=== PATIENT | male | born 1965 | race Caucasian/White ===

== ENCOUNTER 2017-04-04 10:30 | Outpatient (RCR) | payer BC, OTHER, SELFPAY ==
--- NOTE | 2017-01-15 08:02 | HP.PTEVAL ---
Patient's Visit Information NIRAJ JENSEN is a 51 year old M referred to Physical Therapy by AZRA Barron with a diagnosis of Right TKR 01/09/17. Date of Evaluation: 01/15/17 Physical Therapist: Ericka Fang - Visit Plan Frequency: 3x /Week Duration: 4 Weeks Plan: Right TKR 01/09/17- focus on ROM, strength and functional mobility. - Subjective Subjective: Tore his meniscus in May- had a clean out in May- it got better but then dropped off- had PT with Jarad. Dr. Callaway did both surgeries. Right TKR 01/09/17- Had the surgery at [facility] then went home the next day. Lives in a 2 story home but is currently staying on one floor- 3-4 steps to get into the house. No problems getting in out of the house. Son/family can help as needed. Pain level Worst: 01/09. Agg: nothing specific- feels pressure. Constant dull and achy with sometime sharp pains. Around the knee area- no radiating pain. No N/T. Eases: ice, elevation Best: 07/10. Sleep: wakes him up- sleeps on the couch. Patient is an industrial maintaince- concrete, crawling, squatting, stooping, walking, ladders, standing, etc. Wants to get back to normal yard work. PMHx/Meds: no changes since he was in the hospital. - Objective Posture: FH, RS- can correct with verbal cues. Gait: antalgic- uses FWW- step to gait pattern with wide ALYSA and poor heel/toe strike on the right. Stairs:asc/desc 8 non recip with 2 HR. HR/TR: WNL. Balance: WS but unable to SLS. Observation: Juan hose- unable to see incision but no drainage on the JUAN hose-still has surgical dressing over wound. Edema: moderate- hard calf. Palpation: tender along medial and lateral joint line. ROM: 10-70 degrees with pain at end range. Strength: Quad set visible but requires max A for SLR. Ankle: 5/5 - Goals Goal 1:: Patient will be I with HEP and progression Goal Time Frame: 4-6 Weeks Goal 2:: Patient will demo 0-120 degrees of ROM in the right knee Goal Time Frame: 4-6 Weeks Goal 3:: Patient will asc/desc 8 recip with 1 HR to ease ADL's. Goal Time Frame: 4-6 Weeks Goal 4:: Patient will ambulate >300 feet with a normalized gait pattern and LRD Goal Time Frame: 4-6 Weeks Goal 5:: Patient will demo 5/5 strength in LE where deficit to ease ADL's Goal Time Frame: 4-6 Weeks - Rehabilitation Potential Physical Therapy Diagnosis: Patient presents s/p right TKR 01/09/17 with hypomobility- he has decreased ROM, strength, and muscular endurance leading to abnormal gait pattern and inability to perform ADL's. Rehabilitation Potential: Good - Anticipated Interventions Patient/Client Instruction: Educate patient on: Benefits of Fitness Program For the Purpose of:: To improve ability to perform ADL's Therapeutic Exercise to Include: Strength training, Endurance training, Balance training, Body mechanics, Postural training, Flexibilty training, Gait and locomotor training, Passive ROM, Active ROM, Dynamic Lumbar Stabilization For the Purpose of:: To improve muscle performance and motor function Functional Training to Include: Gait training For the Purpose of:: To improve ability to perform ADL's TENS: Yes Cryotherapy (ice pack, ice massage): Yes Thermo therapy (hot pack): Yes Ultrasound (thermal/non thermal): No Vasopneumatic device: Yes For the Purpose of:: To decrease pain, To decrease swelling/inflammation Thank you for the opportunity to evaluate your patient. For Medicare and Medicare HMO plans, please review the plan of care and approve it. It will need to be FAXED BACK to us at [phone] for Medicare purposes. Please let me know if there are questions or concerns regarding this plan of care. Physician Signature: Date:
--- NOTE | 2017-02-14 13:50 | HP.PTREVAL_ITS ---
AZRA Barron, It has been my pleasure to treat NIRAJ JENSEN over the last 12 visits for Right TKR 01/09/17. Please see the progress note below for an update on the physical therapy plan of care! Subjective: Patient reports that the knee is just really tight and swollen. More today than normal due to working it hard in therapy. Pain level is better - almost none at all- more discomfort secondary to the swelling. Feels like a band is around the knee. Sees the MD on sunday. Uses the walker when out of his house but uses a cane at home or out and about short distances. Feels good on the cane. No problems, falling tripping, slipping. Patient is driving. Meds: Oxy (2 every 6 hours) and Tylenol every 8 hours. When he feels it the most is when he goes to bed- hard to get comfortable. Patient feels that he is about 25-30% better. Objective/Function: Posture: FH, RS, Increased kyphosis. Gait: antalgic- can use straight cane without incidence or LOB- decreased stance on the right LE- poor heel/toe pattern. Stairs: asc/desc 8 recip with 2 HR- poor pattern. HR/ TR: able. Balance: 15 sec without LOB. ROM: 10-105 degrees with pain at end range. Strength: Ankle: 5/5, Knee: 4/5, Hip: 4-/5 Plan Plan: Continue 3x a week for 4 weeks Goals Goal 1:: Patient will be I with HEP and progression Goal Time Frame: 4-6 Weeks Goal Progress: Progressing Goal 2:: Patient will demo 0-120 degrees of ROM in the right knee Goal Time Frame: 4-6 Weeks Goal Progress: Progressing Goal 3:: Patient will asc/desc 8 recip with 1 HR to ease ADL's. Goal Time Frame: 4-6 Weeks Goal Progress: Progressing Goal 4:: Patient will ambulate >300 feet with a normalized gait pattern and LRD Goal Time Frame: 4-6 Weeks Goal Progress: Progressing Goal 5:: Patient will demo 5/5 strength in LE where deficit to ease ADL's Goal Time Frame: 4-6 Weeks Goal Progress: Progressing Anticipated Interventions Patient/Client Instruction: Educate patient on: Benefits of Fitness Program For the Purpose of:: To improve ability to perform ADL's Therapeutic Exercise to Include: Strength training, Endurance training, Balance training, Body mechanics, Postural training, Flexibilty training, Gait and locomotor training, Passive ROM, Active ROM, Dynamic Lumbar Stabilization For the Purpose of:: To improve muscle performance and motor function Functional Training to Include: Gait training For the Purpose of:: To improve ability to perform ADL's TENS: Yes Cryotherapy (ice pack, ice massage): Yes Thermo therapy (hot pack): Yes Ultrasound (thermal/non thermal): No Vasopneumatic device: Yes For the Purpose of:: To decrease pain, To decrease swelling/inflammation Please do not hesitate to contact me at [phone] by phone or Fax: if you have questions or concerns regarding this new plan of care! Sincerely, Ericka Fang
--- NOTE | 2017-03-16 10:53 | HP.PTREVAL_ITS ---
AZRA Barron, It has been my pleasure to treat NIRAJ JENSEN over the last 24 visits for Right TKR 01/09/17. Please see the progress note below for an update on the physical therapy plan of care! Subjective: Patient reports his knee is good. 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 Restrictions are cutting hours- start low then go high. Needs to speak to HR about if they will let him come back. Not exactly sure what job he is going back too. Not a lot of pain in the knee its more discomfort. Still feels like there is a band around there. Completely stopped pain meds Sunday. Sleep is still rough- hard to get comfortable. Patient feels that he is 50% better- Objective/Function: Posture: good throughout. Gait: antalgic- decreased stance on the left LE-poor heel strike. Stairs: asc/desc 8' recip- asc with no HR desc with 1 HR. Palpation: not tender. ROM: 5-120 degrees. Strength: 5/5 throughout Plan Plan: Hold-will decide where to go from here once he figures out work situation Goals Goal 1:: Patient will be I with HEP and progression Goal Time Frame: 4-6 Weeks Goal Progress: Goal Met Goal 2:: Patient will demo 0-120 degrees of ROM in the right knee Goal Time Frame: 4-6 Weeks Goal Progress: Progressing Goal 3:: Patient will asc/desc 8 recip with 1 HR to ease ADL's. Goal Time Frame: 4-6 Weeks Goal Progress: Goal Met Goal 4:: Patient will ambulate >300 feet with a normalized gait pattern and LRD Goal Time Frame: 4-6 Weeks Goal Progress: Progressing Goal 5:: Patient will demo 5/5 strength in LE where deficit to ease ADL's Goal Time Frame: 4-6 Weeks Goal Progress: Goal Met Anticipated Interventions Patient/Client Instruction: Educate patient on: Benefits of Fitness Program For the Purpose of:: To improve ability to perform ADL's Therapeutic Exercise to Include: Strength training, Endurance training, Balance training, Body mechanics, Postural training, Flexibilty training, Gait and locomotor training, Passive ROM, Active ROM, Dynamic Lumbar Stabilization For the Purpose of:: To improve muscle performance and motor function Functional Training to Include: Gait training For the Purpose of:: To improve ability to perform ADL's TENS: Yes Cryotherapy (ice pack, ice massage): Yes Thermo therapy (hot pack): Yes Ultrasound (thermal/non thermal): No Vasopneumatic device: Yes For the Purpose of:: To decrease pain, To decrease swelling/inflammation Please do not hesitate to contact me at [phone] by phone or Fax: if you have questions or concerns regarding this new plan of care! Sincerely, Ericka Fang
--- NOTE | 2017-07-04 13:05 | HP.PT.NRP ---
HP - Discharge Summary (1) - Patient Information NIRAJ JENSEN was seen in my office for initial evaluation on 01/15/17. The following Plan of Care was established for this patient: Initial Frequency: 3x /Week Initial Duration: 4 Weeks - Anticipated Interventions Patient/Client Instruction: Educate patient on: Benefits of Fitness Program For the Purpose of:: To improve ability to perform ADL's Therapeutic Exercise to Include: Strength training, Endurance training, Balance training, Body mechanics, Postural training, Flexibilty training, Gait and locomotor training, Passive ROM, Active ROM, Dynamic Lumbar Stabilization For the Purpose of:: To improve muscle performance and motor function Functional Training to Include: Gait training For the Purpose of:: To improve ability to perform ADL's TENS: Yes Cryotherapy (ice pack, ice massage): Yes Thermo therapy (hot pack): Yes Ultrasound (thermal/non thermal): No Vasopneumatic device: Yes For the Purpose of:: To decrease pain, To decrease swelling/inflammation This patient was last seen in our office . Pertinent comments regarding their Physical therapy will appear below: Patient has returned to work- d/c at this time At this point I will be discontinuing this patient from physical therapy. I would be happy to see this patient again in the future if found appropriate by the physician. Thank you! Ericka Fang
== END 2017-04-04 19:00 | disposition home or self-care (01) ==
LOC: PT 10:30
PROVIDERS: Visit Provider Physician Assistant Surgical
DX: M17.11 Unilateral primary osteoarthritis, right knee (principal); M25.461 Effusion, right knee; S83.241D Other tear of medial meniscus, current injury, right knee, subsequent encounter
CPT/HCPCS: 97016; 97110; 97161; 97530

== ENCOUNTER → 2018-01-17 17:19 | Outpatient (CLI) | payer BC, SELFPAY ==
[2018-01-17 19:15] LABS: RBC /Synovial Fluid 0.049 10^6/uL (0); Synovial Fld Mononuclear WBC % 1.8 %; Synovial Fld Polynuclear WBC % 98.2 %
[2018-01-17 20:03] LABS: AUTO B FLUID DILUENT BKGD CT WBC <0.1 RBC <0.01 (W<.1,R<.01)
[2018-01-17 20:05] LABS: Appearance /Synovial Fluid Turbid (CLEAR); Color / Synovial Fluid AMBER (Pale Yellow); Source / Synovial Fluid R KNEE
[2018-01-17 20:07] LABS: Body Fluid QC Type(s) BF4; Neutrophil 95 % (0-25); Other Cell /Synovial Fluid 3 %
[2018-01-21 11:47] LABS: Pathologist Comment Reviewed
== END ==
PROVIDERS: Referring Provider Specialist; Visit Provider Specialist
DX: M25.461 Effusion, right knee (principal); Z96.651 Presence of right artificial knee joint
CPT/HCPCS: 87015; 87070; 87075; 87101; 87116; 87186; 87205; 87206; 89050; 89051

== ENCOUNTER 2018-01-29 11:43 | Inpatient (IN) | payer BC, SELFPAY ==
[2018-01-25 13:31] VITALS: BP 139/76; PULSE 67; RESP 16; TEMP 36.9; O2SAT 97; BMI 37.7
--- NOTE | 2018-01-25 13:43 | SDCEKG_ITS ---
Test Reason : Blood Pressure : / mmHG Vent. Rate : 062 BPM Atrial Rate : 062 BPM P-R Int : 146 ms QRS Dur : 094 ms QT Int : 384 ms P-R-T Axes : 039 041 032 degrees QTc Int : 389 ms Normal sinus rhythm Normal ECG Confirmed by NIKOLAY SCHILLING ([id number]), market editor WANG CULVER ([id number]) on 01/29/2018 9:10:08 AM Referred By: Tito Callaway Confirmed By:NIKOLAY SCHILLING
[2018-01-25 14:26] LABS: Hematocrit 39.5 % (40-54); Hemoglobin 12.9 g/dl (13.0-16.5); Mean Corp Hgb Conc 32.7 g/gl (32-36); Mean Corpuscular Hgb 28.1 pg (27.0-32.0); Mean Corpuscular Volume 86.1 fL (80-94); Mean Platelet Vol. 9.4 fl (6.2-12.0); Platelet Count 312 K/mm3 (150-450); RBC Distribution Width CV 13.3 % (11.6-14.6); RBC Distribution Width SD 41.4 fl (35.1-43.9); Red Blood Count 4.59 M/mm3 (4.6-6.2); White Blood Count 9.3 K/mm3 (4.4-11.0)
[2018-01-25 14:29] LABS: Scan Indicated on CBC? Y/N NO
--- NOTE | 2018-01-28 07:17 | PCM.HP.BLA ---
History and Physical DATE OF SURGERY: 01/29/2018 SCHEDULED PROCEDURE: Right knee explant total knee, placement of antibiotic spacer HISTORY OF PRESENT ILLNESS: This is a 52-year-old male who underwent a previous right total knee arthroplasty on January 09, 2017. Patient continued to have swelling and tightness in the right knee. Patient denied any fevers, chills, or recent infections. Patient just feels as if the knee feels swollen and tight. There is no history of infections after surgery. 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 He denies any new trauma or injury. Patient had lab work obtained in which showed an elevated CRP at 6.71 and ESR at 57. Patient also had aspiration which did show positive for synovasure with greater than 70,000 white blood cells, 90% neutrophils. Cultures are positive for staph strain. After discussion with Dr. Tito Callaway, the patient will undergo an explant right total knee with placement of antibiotic spacer. Patient has been on Doxycycline. Patient currently denies any chest pain, shortness breath, fevers chills. Patient has a medical history pertinent for hypertension. REVIEW OF SYSTEMS: ROS: Const: Denies anorexia, change in appetite, fever, hard of hearing, vision problems and weight change. CV: Denies chest pain, heart murmur, irregular heartbeat and peripheral vascular disease. Resp: Denies asthma, cough, pneumonia, sleep apnea, SOB, tuberculosis and wheezing. GI: Denies constipation, diarrhea, difficulty swallowing, heartburn, nausea, bloody stools and vomiting. : Urinary: denies incontinence. Musculo: Denies leg swelling, limp, trouble walking and weakness. Skin: Reports tattoo, but denies Raynaud's and history of shingles. Neuro: Denies ambulatory dysfunction, dizziness, numbness/tingling and tremor. Psych: Denies anxiety, depression, insomnia, mental illness and stress. Kal/Lymph: Denies anemia, bleeding/bruising tendency and past transfusion. Reviewed, no changes. PAST MEDICAL HISTORY: Advance Care Plan: No Advance Directives Effective Date: 10/26/2016 PMH: Medical Problems: High Blood Pressure Accidents: None Surgical Hx: Carpal Tunnel Release Rt - (2001) [facility] Vasectomy - (1996) [facility], [place] Knee Arthroscopy RT - (06/09/2016) [email or web address] Knee Replacement RT - (01/09/2017) [email or web address] Anesthesia Complications: None Assistive Devices: None Reviewed, no changes. SOCIAL HISTORY: SH: Marital: .Occupation: [employer].Work Status: Currently Working.Hand Dominance: Right-handed. Personal Habits: Cigarette Use: Former - 1 1/2 ON & OFF TRYING TO STOP.Alcohol: Currently consumes alcohol, Occasionally.Drug Use: Denies Use.Enjoy Exercising: Exercises 1-3 x/month. Reviewed, no changes. VITALS: Ht: 66 Wt: 233lb Wt k.689 BMI: 37.6 BP: 130/80 Pulse: 80 Resp: 16 T: 97.3 T: 36.3C ALLERGIES: No Known Drug Allergy MEDICATIONS: Doxycycline Monohydrate 100 mg 1 by mouth twice a day, Meloxicam 7.5 mg take 1 tablet by mouth twice A day, Lisinopril 10 mg take 1 tablet by mouth every day PRE-OP EXAM: General appearance:NORMAL Other: Eyes: Conjunctivae and lids: NORMAL Pupils: ERR Ears, Nose, Mouth, and Throat: NORMAL Other: Inspection of lips, teeth and gums: NORMAL Other: Neck: Examination of neck: no masses noted. Respiratory: Assessment of respiratory effort: NORMAL Other: Auscultation of lungs: clear to auscultation no wheezes, rhonchi or rales. Cardiovascular: Auscultation of heart: regular rate and rhythm, no murmurs, gallops or rubs. Exam of carotid arteries: NORMAL Other: Gastrointestinal: Exam of abdomen: soft, nontender, nondistended bowel sounds present. PHYSICAL EXAMINATION: Right knee: Incision is well healed. There is 1 mm laxity medially and laterally. Stable to varus and valgus stress test. There is moderate effusion. Range of motion right knee lacks 5 of full extension to 110 of flexion. Sensation intact to light touch. Neurovascularly intact. IMAGING STUDIES: Labwork: January 09, 2018 CRP 6.71 and ESR 57 Patient with positive Synovasure with greater than 70,000 white blood cells and the synovial fluid and greater than 90% neutrophils. Cultures are positive for staph strain. IMPRESSION: 1. Infected right total knee arthroplasty 2. Hypertension PLAN: Dr. Tito Callaway did discuss and review with the patient all treatment options including surgical versus nonsurgical options. Patient does wish to proceed with the above-stated procedure. Potential risks, benefits, and complications of the procedure were discussed in detail including but not limited to , infection, nerve and blood vessel damage, persistent pain, numbness, tingling, paresthesias, blood clot, pulmonary embolism, and requirement for possible further surgery. The patient expressed full understanding and has no further questions for the doctor. Patient does agree to proceed with the above-stated procedure and has signed the surgery consent form. This dictation was created using voice recognition software. Phonetic and/or grammatical errors may exist.. ___ I have re-examined the patient. There are no clinical changes since date of exam. ___ See progress notes for changes. ___ Dictated on admission Date: Time: Signature:
[2018-01-29] VITALS (12 sets, daily range): BP systolic 103–145; BP diastolic 68–82; PULSE 62–74; RESP 14–18; TEMP 36.1–37.1; O2SAT 98–100; BMI 37.7; BMI 37.5
[2018-01-29] MEDS: oxyCODONE HCl Cr 10 MG Tablet PO (12:05)
[2018-01-29] MEDS: Acetaminophen 500 MG Tablet 1000 MG PO ×2 (12:06→22:33)
[2018-01-29] MEDS: Lactated Ringers 1,000 ML 999 ML IV (12:30)
[2018-01-29] MEDS: Vancomycin IV 1,000 MG/20 ML Vial 6000 MG OPERA.SITE (13:00)
[2018-01-29] MEDS: Cefazolin 2 GM in 0.9% Normal Saline 100 ML IV (14:43)
--- NOTE | 2018-01-29 15:53 | PCM.OPRPT ---
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 Insertion of nonbiodegradable antibiotic delivery system Description of Surgical Findings:: Well aligned antibiotic spacer. Aggressive debridement of the knee. Patient had florid synovitis consistent with chronic infection. Also significant osteomyelitis was encountered requiring significant bony debridement.. leasing specialist: Paul Harris Type of Anesthesia:: Spinal Anesthesiologist: Jose Sands Special Medications: 2 g Ancef after cultures were obtained, 1 g TXA at incision, 1 g TXA closure Specimen's removed: 3 separate specimens were sent to microbiology Drains: Lateral Hemovac drain Estimated Blood Loss (mL): 150 Fluids Replaced: 1600 mL crystalloid Description of Procedure: 52 yo m history of right TKA in 2017 presents with chronic swelling. Patient was worked up for infection noted to have staph on aspiration meeting 5 out of 5 nonoperative MSIS criteria for infection. Reviewed options were discussed the patient. Based on acuity of the symptoms and organism irrigation debridement with polyethylene exchange is recommended. Risks and benefits of the procedure were discussed with the patient including but not limited to blood loss, DVTs, PEs, neurovascular damage, infection, general risk of anesthesia including loss of life. Demonstrated understanding and was able to sign informed consent. On the date of procedure patient'sR lower extremity was marked in the preoperative area. The patient was then taken back to the operating room where the patient was placed on the table in the supine position. All bony prominences were identified a well-padded. Anesthesia assumed control of the C-spine and airway and remained controlled throughout the remainder of the procedure. A tourniquet was placed on the operative thigh and the leg was prepped in a sterile fashion. The surgeon then scrubbed at this time .Upon reentering the room left lower extremity was draped in a standard orthopedic fashion. A timeout was then called and everyone agreed upon the side, the site, the procedure to be performed, patient's identity and antibiotics given. A midline skin incision was made and sharp dissection was taken down through skin subcutaneous tissue and fat. Appropriate flaps were elevated medially and laterally. His arthrotomy was identified and the standard medial parapatellar incision was made and the patella was subluxed laterally. The standard deep MCL release was done. At this point an aggressive synovectomy commenced. Our attention was first turned towards the subpatellar pouch and all suspicious synovium and tissues were debrided. We then directed our attention towards medial lateral gutters were these tissues were aggressively debrided. Knee was then flexed up the polyethylene was removed. Once polyethylene was removed we did the remainder of the synovium in the medial and lateral gutters and along the lateral structures and MCL. At this time the knee was flexed up in our attention was directed towards removing the implants. Osteotomes and TPS saw were used to sequentially break up the bone cement interface we did note there was significant soft bone consistent with osteomyelitis. Once the femoral bone cement interface was broken up a bone tamp was used to remove the femur from the distal femur. Attention was then directed towards the tibia. TPS saw and white osteotomes were used to sequentially break up the bone cement interface. Once this was broken up the tibia could be removed. There was a large central defect. Once this was completed our attention was directed at aggressively debriding the bone. We did send membrane cultures. After we aggressively debrided the nonviable bone back to what appeared to be healthy bone in all cement we then reamed the canals of both the femur and the tibia. This was completed the knee was placed in extension patella was everted and a TPS saw was used to break up the bone cement interface once this was completed the patella was easily removed. A bur was used to remove the pegs and there is cement mantle. Once this was completed tourniquet was let down and hemostasis was obtained using the [employer] Michael hemostasis device. Once this was completed 6 L of normal saline were irrigated throughout the wound stopping intermittently to debride any further nonviable or infectious debris. Should also be noted that prior to irrigation and hemostasis we did place a lamina mechanical spreader operator in the joint and aggressively debride the knee in both extension and flexion posteriorly. Once the knee was adequately debrided we directed our attention in performing the spacer. On the back table one batch of cement was mixed with one third of the antibiotics. (Antibiotics and cement were 6 g vancomycin, 2 g Ancef and 4.8 g tobramycin) this initial batch of cement and antibiotics were rolled into dowels and placed on the back table. Once the wound was appropriately irrigated the dowels were placed on the femoral tibial canal for an appropriate fit. This was our nonbiodegradable antibiotic delivery system. Size 5 femur was selected as this was what was removed from the knee. We then trialed polyethylene components. An 8, 19 mm CR polyethylene gave us a good fit over the proximal tibia and allow the knee to adequately flex and extend with adequate tension on the soft tissues. Once we selected our final components they were placed on the back table. The final polyethylene was scored on the backside in order to allow for good cement interdigitation. The next back of cement was mixed with the remainder of the antibiotics. The bone ends were cleaned and the tourniquet remained down. The femur was cemented into place and the tibial polyethylene was cemented into place. Knee was placed in extension while cement was cured. Once the cement cured there were some leftover antibiotics which were placed in the wound as powder. A drain was placed out the lateral portion of the knee superior laterally. The arthrotomy was closed using #1 Vicryl. Skin was closed using 2-0 Vicryl and final skin closure was done with nylon sutures. A sterile compressive dressing was then placed. Knee immobilizer was placed. The patient was then awakened from anesthesia, transferred to the [facility] and transferred to the PACU for recovery. Post op plan Patient will remain in the knee immobilizer for 2 weeks. He will be touchdown weightbearing for 2 weeks followed by 25% weightbearing for the remainder of the time that the pacer is in place. A 2 weeks he has no limitations on range of motion and can begin physical therapy for range of motion. Patient will will be placed on IV antibiotics infectious disease has been consulted. We will plan for the second stage of the revision once adequate IV antibiotic treatment has commenced and patient has successfully passed an antibiotic holiday. My physician design assistant was a vital part of this case. He was important in appropriate retraction during the case, and protection of soft tissues during bony cuts. His intimate knowledge of the case and my steps aided in safe and expedient completion of the procedure as well as appropriate position of the leg during the case. He was also vital in assisting with closure under my direct supervision. Grafts/Implants Used: [employer] triathlon CR size 5 femur, 8 x 19 mm CR poly - Complications None - Admit VTE Documentation VTE Present on Admission: No VTE Mechan Device Prophylaxis: SCD's, Thigh High JUAN Hose VTE Pharm Prophylaxis ordered?: Yes
--- NOTE | 2018-01-29 16:05 | OP.PCM_ITS ---
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 Insertion of nonbiodegradable antibiotic delivery system Description of Surgical Findings:: Well aligned antibiotic spacer. Aggressive debridement of the knee. Patient had florid synovitis consistent with chronic infection. Also significant osteomyelitis was encountered requiring significant bony debridement.. controller operations and hr manager: Paul Harris Type of Anesthesia:: Spinal Anesthesiologist: Jose Sands Special Medications: 2 g Ancef after cultures were obtained, 1 g TXA at in cision, 1 g TXA closure Specimen's removed: 3 separate specimens were sent to microbiology Drains: Lateral Hemovac drain Estimated Blood Loss (mL): 150 Fluids Replaced: 1600 mL crystalloid Description of Procedure: 52 yo m history of right TKA in 2017 presents with chronic swelling. Patient was worked up for infection noted to have staph on aspiration meeting 5 out of 5 nonoperative MSIS criteria for infection. Reviewed options were discussed the patient. Based on acuity of the symptoms and organism irrigation debridement with polyethylene exchange is recommended. Risks and benefits of the procedure were discussed with the patient including but not limited to blood loss, DVTs, PEs, neurovascular damage, infection, general risk of anesthesia including loss of life. Demonstrated understanding and was able to sign informed consent. On the date of procedure patient'sR lower extremity was marked in the preoperative area. The patient was then taken back to the operating room where the patient was placed on the table in the supine position. All bony prominences were identified a well-padded. Anesthesia assumed control of the C-spine and airway and remained controlled throughout the remainder of the procedure. A tourniquet was placed on the operative thigh and the leg was prepped in a sterile fashion. The surgeon then scrubbed at this time .Upon reentering the room left lower extremity was draped in a standard orthopedic fashion. A timeout was then called and everyone agreed upon the side, the site, the procedure to be performed, patient's identity and antibiotics given. A midline skin incision was made and sharp dissection was taken down through skin subcutaneous tissue and fat. Appropriate flaps were elevated medially and laterally. His arthrotomy was identified and the standard medial parapatellar incision was made and the patella was subluxed laterally. The standard deep MCL release was done. At this point an aggressive synovectomy commenced. Our attention was first turned towards the subpatellar pouch and all suspicious synovium and tissues were debrided. We then directed our attention towards medial lateral gutters were these tissues were aggressively debrided. Knee was then flexed up the polyethylene was removed. Once polyethylene was removed we did the remainder of the synovium in the medial and lateral gutters and along the lateral structures and MCL. At this time the knee was flexed up in our attention was directed towards removing the implants. Osteotomes and TPS saw were used to sequentially break up the bone cement interface we did note there was significant soft bone consistent with osteomyelitis. Once the femoral bone cement interface was broken up a bone tamp was used to remove the femur from the distal femur. Attention was then directed towards the tibia. TPS saw and white osteotomes were used to sequentially break up the bone cement interface. Once this was broken up the tibia could be removed. There was a large central defect. Once this was completed our attention was directed at aggressively debriding the bone. We did send membrane cultures. After we aggressively debrided the nonviable bone back to what appeared to be healthy bone in all cement we then reamed the canals of both the femur and the tibia. This was completed the knee was placed in extension patella was everted and a TPS saw was used to break up the bone cement interface once this was completed the patella was easily removed. A bur was used to remove the pegs and there is cement mantle. Once this was completed tourniquet was let down and hemostasis was obtained using the [employer] Michael hemostasis device. Once this was completed 6 L of normal saline were irrigated throughout the wound stopping intermittently to debride any further nonviable or infectious debris. Should also be noted that prior to irrigation and hemostasis we did place a lamina substation mechanic in the joint and aggressively debride the knee in both extension and flexion posteriorly. Once the knee was adequately debrided we directed our attention in performing the spacer. On the back table one batch of cement was mixed with one third of the antibiotics. (Antibiotics and cement were 6 g vancomycin, 2 g Ancef and 4.8 g tobramycin) this initial batch of cement and antibiotics were rolled into dowels and placed on the back table. Once the wound was appropriately irrigated the dowels were placed on the femoral tibial canal for an appropriate fit. This was our nonbiodegradable antibiotic delivery system. Size 5 femur was selected as this was what was removed from the knee. We then trialed polyethylene components. An 8, 19 mm CR polyethylene gave us a good fit over the proximal tibia and allow the knee to adequately flex and extend with adequate tension on the soft tissues. Once we selected our final components they were placed on the back table. The final polyethylene was scored on the backside in order to allow for good cement interdigitation. The next back of cement was mixed with the remainder of the antibiotics. The bone ends were cleaned and the tourniquet remained down. The femur was cemented into place and the tibial polyethylene was cemented into place. Knee was placed in extension while cement was cured. Once the cement cured there were some leftover antibiotics which were placed in the wound as powder. A drain was placed out the lateral portion of the knee superior laterally. The arthrotomy was closed using #1 Vicryl. Skin was closed using 2-0 Vicryl and final skin closure was done with nylon sutures. A sterile compressive dressing was then placed. Knee immobilizer was placed. The patient was then awakened from anesthesia, transferred to the [facility] and transferred to the PACU for recovery. Post op plan Patient will remain in the knee immobilizer for 2 weeks. He will be touchdown weightbearing for 2 weeks followed by 25% weightbearing for the remainder of the time that the pacer is in place. A 2 weeks he has no limitations on range of motion and can begin physical therapy for range of motion. Patient will will be placed on IV antibiotics infectious disease has been consulted. We will plan for the second stage of the revision once adequate IV antibiotic treatment has commenced and patient has successfully passed an antibiotic holiday. My physician hardware sales assistant was a vital part of this case. He was important in appropriate retraction during the case, and protection of soft tissues during bony cuts. His intimate knowledge of the case and my steps aided in safe and expedient completion of the procedure as well as appropriate position of the leg during the case. He was also vital in assisting with closure under my direct supervision. Grafts/Implants Used: Mary triathlon CR size 5 femur, 8 x 19 mm CR poly - Complications None - Admit VTE Documentation VTE Present on Admission: No VTE Mechan Device Prophylaxis: SCD's, Thigh High JUAN Hose VTE Pharm Prophylaxis ordered?: Yes
[2018-01-29] MEDS: Scopolamine 1mg/72hr Patch 1 PATCH TD (16:48)
--- NOTE | 2018-01-29 17:20 | RAD_ITS ---
STUDY: X-RAY - RIGHT KNEE REASON FOR EXAM: Male, 52 years old. Postop TECHNIQUE: 2 view(s) of the knee. COMPARISON: January 09, 2017 FINDINGS: Status post revision of right knee prosthesis since the previous study. Postsurgical changes within surrounding soft tissue. There is a drain noted. RAD/Knee 1 or 2 Views IMPRESSION: Status post revision of prosthesis of the knee. Electronically Signed: Dave Ngo DO at 21:32 EDT Tel [phone], Service support ,
[2018-01-29] MEDS: Lactated Ringers 1,000 ML 125 ML IV (17:35)
[2018-01-29] MEDS: Morphine 4 MG/ML Syringe IV (19:23)
[2018-01-29] MEDS: 0.9% NaCl Peripheral Flush Adult/Peds IV (19:24)
[2018-01-29] MEDS: Cefazolin 1 GM/50 ML BAG IV (22:32)
[2018-01-29] MEDS: Senna/Docusate Sodium 1 Tablet 2 TABLET PO (22:33)
[2018-01-29] MEDS: Doxycycline 100 MG CAPSULE PO (22:33)
[2018-01-30] MEDS: oxyCODONE 5 MG Tablet PO ×4 (02:21→20:31)
[2018-01-30 02:22] VITALS: BP 119/60; PULSE 73; RESP 14; TEMP 36.7; O2SAT 100
[2018-01-30] MEDS: Rivaroxaban 10 MG Tablet PO (05:30)
[2018-01-30] MEDS: Acetaminophen 500 MG Tablet 1000 MG PO ×3 (05:31→21:59)
[2018-01-30] MEDS: Cefazolin 1 GM/50 ML BAG IV (05:31)
--- NOTE | 2018-01-30 06:13 | PN.ORTHO_ITS ---
Subjective: Patient is doing well. Did require pain medications overnight oxycodone and morphine. He does state the knee feels tight. Drain was emptied twice was over 100 mL of output overnight. No chest pain or shortness of breath. No fevers overnight. Infectious disease was consulted awaiting input. Objective: Postoperative x-rays AP and lateral show a well aligned antibiotic knee spacer with intramedullary dowels. - Physical Exam General: Alert, Oriented x3, Cooperative Extremities: - - Right lower extremity: Incision clean dry and intact. Motor is intact dorsiflexion, EHL and plantar flexion. Sensation is intact to light touch saphenous, ty,l superficial peroneal, deep peroneal and tibial distributions. Calves are soft and supple. Vital Signs Temp Pulse Resp BP Pulse Ox 98.1 F 73 14 119/60 100 01/30/18 02:22 01/30/18 02:22 01/30/18 02:22 01/30/18 02:22 01/30/18 02:22 Oxygen Delivery Method Room Air Weight: 233 lb 11.04 oz Body Mass Index (BMI) 37.5 Intake and Output for Last 24 Hours 01/28/18 01/29/18 01/30/18 23:59 23:59 23:59 Intake Total 1999 1901 / 1901 Output Total 100 / 100 550 / 550 Balance 190 / 1899 1351 / 1351 Laboratory Tests Past 24 Hrs 01/30/18 01/30/18 05:45 05:45 WBC Pending RBC Pending Hgb Pending Hct Pending MCV Pending MCH Pending MCHC Pending RDW Pending RDW Differential Pending Plt Count Pending Sodium Pending Potassium Pending Chloride Pending Carbon Dioxide Pending Anion Gap Pending BUN Pending Creatinine Pending Est GFR (MDRD) Af Amer Pending Est GFR (MDRD) Non-Af Pending BUN/Creatinine Ratio Pending Glucose Pending Calcium Pending Medical Necessity - Tobacco Use Smoking Status: Former smoker Assessment/Plan Postop day 1 explant right total knee with placement of antibiotic spacer and nonbiodegradable antibiotic delivery system. 1. DVT prophylaxis: Xarelto 2. Drain: We will continue to monitor drain output and remove his drain output decreases 3. Cultures: Awaiting Gram stain and cultures from yesterday's intraoperative specimens, preoperative aspiration revealed staph species 4. Infection: Antibiotics to be managed by infectious disease intra-articular vancomycin and tobramycin has been placed with the antibiotic spacer. 5. Pain control: Continue current regimen Tylenol, oxycodone and morphine as needed 6. Physical therapy: Touchdown weightbearing right lower extremity, knee immobilizer with knee in extension. 7. Disposition: Patient will be ready for discharge once antibiotic regimen is finalized and PICC line is placed. [facility] Office:
[2018-01-30 06:16] LABS: Hematocrit 29.6 % (40-54); Hemoglobin 9.7 g/dl (13.0-16.5); Mean Corp Hgb Conc 32.8 g/gl (32-36); Mean Corpuscular Hgb 28.1 pg (27.0-32.0); Mean Corpuscular Volume 85.8 fL (80-94); Mean Platelet Vol. 9.6 fl (6.2-12.0); Platelet Count 285 K/mm3 (150-450); RBC Distribution Width SD 39.3 fl (35.1-43.9); Red Blood Count 3.45 M/mm3 (4.6-6.2); White Blood Count 11.1 K/mm3 (4.4-11.0)
[2018-01-30 06:18] LABS: Scan Indicated on CBC? Y/N NO
[2018-01-30 06:37] LABS: Anion Gap 7 (5-15); BUN 10 mg/dL (7-18); BUN/Creat Ratio 15.4 RATIO (10-20); Calcium,Total 8.2 mg/dL (8.5-10.1); Chloride 100 mmol/L (98-107); Creatinine, Serum 0.65 mg/dL (0.70-1.30); EST Glomerular Filtration Rate 136 mL/min (>60); Est Glom Filt Rate - Afr Amer 165 mL/min (>60); Glucose 106 mg/dL (74-106); Sodium Level 136 mmol/L (136-145)
[2018-01-30 08:05] VITALS: BP 126/64; PULSE 66; RESP 18; TEMP 36.4; O2SAT 100
[2018-01-30] MEDS: Famotidine 20 MG Tablet PO (10:13)
[2018-01-30] MEDS: Senna/Docusate Sodium 1 Tablet 2 TABLET PO ×2 (10:13→21:59)
[2018-01-30] MEDS: Doxycycline 100 MG CAPSULE PO (10:13)
[2018-01-30] MEDS: Lisinopril 10 MG Tablet PO (10:13)
--- NOTE | 2018-01-30 13:20 | CASEMGMT ---
RN CM Face to Face with patient for initial transition planning/care coordination assessment. RN CM introduced self and role at [facility]. Patient lying in bed, alert and oriented. Patient willing to participate in assessment and is able to answer all questions appropriately. Care providers, pharmacy, and demographics verified. Patient wishes to discharge home, denies need for home health at this time. Patient states he has no further needs or concerns at this time. CM to follow for discharge planning needs that may arise. PCP: Keke Specialists: None Preferred Pharmacy: [facility] Insurance: [employer] Prescription Benefit: [employer] Living Will/HPOA: None, declined additional information LNOK: Son Living Arrangements: Patient lives with son in 2 story house with bath on first floor, can arrange for bed. Transportation: Family DME/HHC: Patient has cane, walker, and hip kit at home. Patient will need HHC at discharge and is agreeable to [facility]. May need IV ATBs and is agreeable to [facility] Disposition Plan: Patient to discharge home or to [facility] with HHC and IV ATBs, family support, and follow-up plans in place. Viky DE LOS SANTOSN, RN, CM
--- NOTE | 2018-01-30 14:16 | CASEMGMT ---
RN CM NOTE: Call placed to LISSET Greene, @ [facility] w/referral for chcf/IV Antibiotics and PT eval and treat. Referral packet also faxed to [facility]. Awaiting financials. Kina CLAY RN CM .
[2018-01-30 14:25] VITALS: BP 122/70; PULSE 67; RESP 16; TEMP 36.5; O2SAT 100
--- NOTE | 2018-01-30 16:25 | PCM.HP.ID ---
Problem List (1) Infected prosthetic knee joint Status: Acute Reason for Consult: PJI Consulted by: Dr. Callaway History of Present Illness: The patient is a 52 year old M who had R TKA about a year ago. Did ok since surgery, but had persistent swelling. Denies redness, pain, drainage, fever, chills, night sweats. Seen in follow-up, labwork done, then knee aspirated 01/17 showed heavy purulence and staph lugdunensis. Started on po doxy for several days then taken to OR 01/[address] Callaway for spacer placement. Full ROS performed and neg except as noted above. - Medical History Allergies/Adverse Reactions: Allergies No Known Allergies Allergy (Verified 01/25/18 13:13) Home Medications: Ambulatory Orders Medication Instructions Recorded Lisinopril [Prinivil] 10 mg PO DAILY 12/25/16 Doxycycline 100 mg PO BID 01/25/18 Meloxicam [Mobic] 7.5 mg PO BID 01/25/18 - Social History SMOKING STATUS:: Former smoker Vital Signs Temp Pulse Resp BP Pulse Ox 97.7 F L 67 16 122/70 H 100 01/30/18 14:25 01/30/18 14:25 01/30/18 14:25 01/30/18 14:25 01/30/18 14:25 Oxygen Delivery Method Room Air Weight: 106 kg Body Mass Index (BMI) 37.5 Microbiology Past 72 Hours 01/29/18 14:09 Gram Stain - Final Aspirate - Other Wound Culture - Preliminary No growth-Final to follow 01/29/18 14:09 Gram Stain - Final Tissue - Other Wound Culture - Preliminary Gram positive organism 01/29/18 14:09 Gram Stain - Final Tissue - Other Wound Culture - Preliminary Gram positive organism 01/29/18 14:09 Gram Stain - Final Tissue - Other Wound Culture - Preliminary No growth-Final to follow Laboratory Tests Past 24 Hrs 01/30/18 01/30/18 05:45 05:45 WBC 11.1 H RBC 3.45 L Hgb 9.7 L Hct 29.6 L MCV 85.8 MCH 28.1 MCHC 32.8 RDW 13.0 RDW Differential 39.3 Plt Count 285 MPV 9.6 Sodium 136 Potassium 4.0 Chloride 100 Carbon Dioxide 29.0 Anion Gap 7 BUN 10 Creatinine 0.65 L Estim Creat Clear Calc 118.60 Est GFR (MDRD) Af Amer 165 Est GFR (MDRD) Non-Af 136 BUN/Creatinine Ratio 15.4 Glucose 106 Calcium 8.2 L - Other Studies Radiology: [] Other Studies: [] reviewed radiology report Route of nutrition/ use of supplements: [] Nutritional Intake: [] IV Site: [] Zuniga Catheter: [] - Physical Exam General: Alert, Oriented x3, Cooperative, No apparent distress HEENT: Atraumatic, PERRLA, EOMI Neck: Supple, No Nodes Lungs: Clear to auscultation, Normal air movement Cardiovascular: Regular rate, Regular Rhythm Abdomen: Soft, Non Tender, Non-Distended Extremities: - - RLE wrapped Skin: No rashes IV Site: Peripheral, without redness Musculoskeletal: No Tenderness to Palpation of Joints or Extremities Neurological: Cranial nerves II-XII grossly intact - Assessment/Plan Antibiotics: [] Assessment/Plan: [] 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 Callaway. Surg cx with [facility]. Will stop doxy as the staph was R to tetracycline. Start IV vanc. Plan will be for picc placement then 6 weeks iv vanc, stop date 03/12/18. Weekly bmp, cbc, vanc trough, and esr while on iv abx. Will follow, thank you.
[2018-01-30] MEDS: 0.9% NaCl Peripheral Flush Adult/Peds IV ×2 (16:26→20:36)
--- NOTE | 2018-01-30 16:55 | PCM.RX.CS ---
Consult Pharmacy has been consulted to manage selected antiobiotic: Vancomycin Type of Consult: New start Suspected Infection: Skin/Soft tissue Prior Doses of Antibiotics Received/Current Regimen: Received 2000mg iv x1 on 01.30.18 @1600. Labs: Sodium 136 mmol/L (136-145) 01/30/18 05:45 Potassium 4.0 mmol/L (3.5-5.1) 01/30/18 05:45 Chloride 100 mmol/L (98-107) 01/30/18 05:45 Carbon Dioxide 29.0 mmol/L (21.0-32.0) 01/30/18 05:45 Anion Gap 7 (5-15) 01/30/18 05:45 BUN 10 mg/dL (7-18) 01/30/18 05:45 Creatinine 0.65 mg/dL (0.70-1.30) L 01/30/18 05:45 Est GFR (MDRD) Af Amer 165 mL/min (>60) 01/30/18 05:45 Est GFR (MDRD) Non-Af 136 mL/min (>60) 01/30/18 05:45 BUN/Creatinine Ratio 15.4 RATIO (10-20) 01/30/18 05:45 Glucose 106 mg/dL (74-106) 01/30/18 05:45 Microbiology: Microbiology 01/29/18 14:09 Aspirate - Other Gram Stain - Final 01/29/18 14:09 Aspirate - Other Wound Culture - Preliminary No growth-Final to follow 01/29/18 14:09 Tissue - Other Gram Stain - Final 01/29/18 14:09 Tissue - Other Wound Culture - Preliminary Gram positive organism 01/29/18 14:09 Tissue - Other Gram Stain - Final 01/29/18 14:09 Tissue - Other Wound Culture - Preliminary Gram positive organism 01/29/18 14:09 Tissue - Other Gram Stain - Final 01/29/18 14:09 Tissue - Other Wound Culture - Preliminary No growth-Final to follow 01/25/18 13:50 Swab (Method) Nasal Screen MRSA/MSSA - Final Weight used for dosin kg Estimated Creatinine Clearance: 119 ml/min Goal Trough: 15-20 mcg/mL Pharmacy Plan for Drug Dosing: Reviewed weight and renal status. Will begin 1250mg iv q8h and get trough level before 4th dose (goal 15-20 mcg/ml). Pharmacy Service will continue to monitor and adjust dosing as required. Follow-Up Labs: Trough Vancomycin - on 01.31.18 @1530 before dose at 1600
[2018-01-30 20:25] VITALS: BP 136/62; PULSE 75; RESP 18; TEMP 37.3; O2SAT 95
[2018-01-31] MEDS: 0.9% NaCl Peripheral Flush Adult/Peds IV ×4 (00:06→16:02)
[2018-01-31 02:09] VITALS: BP 125/63; PULSE 66; RESP 16; TEMP 36.8; O2SAT 96
[2018-01-31] MEDS: oxyCODONE 5 MG Tablet PO ×4 (02:11→23:39)
[2018-01-31] MEDS: Acetaminophen 500 MG Tablet 1000 MG PO ×3 (05:34→21:00)
[2018-01-31] MEDS: Rivaroxaban 10 MG Tablet PO (05:34)
[2018-01-31 06:34] LABS: Hematocrit 29.3 % (40-54); Hemoglobin 9.7 g/dl (13.0-16.5); Mean Corp Hgb Conc 33.1 g/gl (32-36); Mean Corpuscular Volume 84.7 fL (80-94); Mean Platelet Vol. 9.7 fl (6.2-12.0); Platelet Count 274 K/mm3 (150-450); RBC Distribution Width SD 38.6 fl (35.1-43.9); Red Blood Count 3.46 M/mm3 (4.6-6.2); White Blood Count 10.5 K/mm3 (4.4-11.0)
[2018-01-31 06:37] LABS: Scan Indicated on CBC? Y/N NO
[2018-01-31 08:35] VITALS: BP 135/58; PULSE 65; RESP 16; TEMP 36.6; O2SAT 99
[2018-01-31] MEDS: Famotidine 20 MG Tablet PO (08:39)
[2018-01-31] MEDS: Lisinopril 10 MG Tablet PO (08:39)
[2018-01-31] MEDS: Senna/Docusate Sodium 1 Tablet 2 TABLET PO ×2 (08:39→21:00)
--- NOTE | 2018-01-31 08:50 | PCM.PN.ORT ---
Patient Problems: Active and Suspected Problems Infected prosthetic knee joint (Acute) Subjective: The patient was sitting in bed upon examination. Patient denies any chest pain, shortness of breath, dizziness, lightheadedness, nausea or vomiting, or calf pain. Pain is controlled on medications. No adverse overnight events. Infectious disease has seen the patient and will require IV vancomycin for 6 weeks. Patient grew out gram-positive cocci. Aspiration on January 17, 2018 revealed staph lugdunensis. Patient states he wishes to drive to go to long term facility here at [facility]. Objective: Vital signs stable and afebrile. Patient is able to plantarflex and dorsiflex actively. Sensation is intact to light touch to saphenous, sural, superficial and deep peroneal, and tibial distribution. Dressing is clean dry and intact. Knee immobilizer is in place Hemovac drain in place: Over last 24 hours 145 ml was removed, previous day was 200 ml. Negative Homans bilaterally, negative signs and symptoms of DVT. - Physical Exam General: Alert, Oriented x3, Cooperative, No apparent distress Vital Signs Temp Pulse Resp BP Pulse Ox 98.3 F 66 16 125/63 H 96 01/31/18 02:09 01/31/18 02:09 01/31/18 02:09 01/31/18 02:09 01/31/18 02:09 Oxygen Delivery Method Room Air Weight: 106 kg Body Mass Index (BMI) 37.5 Intake and Output for Last 24 Hours 01/29/18 01/30/18 01/31/18 23:59 23:59 23:59 Intake Total 1999 / 1999 3373 / 3373 1450 / 1450 Output Total 100 / 100 2375 / 2375 2755 / 2755 Balance 1900 / 1900 998 / 998 -1305 / -1305 Microbiology Past 72 Hours 01/29/18 14:09 Gram Stain - Final Aspirate - Other Wound Culture - Preliminary No growth-Final to follow Anaerobic Culture - Preliminary Checking for anaerobes, further studies to follow. 01/29/18 14:09 Gram Stain - Final Tissue - Other Wound Culture - Preliminary Gram positive organism Anaerobic Culture - Preliminary Checking for anaerobes, further studies to follow. 01/29/18 14:09 Gram Stain - Final Tissue - Other Wound Culture - Preliminary Gram positive organism Anaerobic Culture - Preliminary Checking for anaerobes, further studies to follow. 01/29/18 14:09 Gram Stain - Final Tissue - Other Wound Culture - Preliminary No growth-Final to follow Anaerobic Culture - Preliminary No growth in 48 hours. Laboratory Tests Past 24 Hrs 01/31/18 05:54 WBC 10.5 RBC 3.46 L Hgb 9.7 L Hct 29.3 L MCV 84.7 MCH 28.0 MCHC 33.1 RDW 13.0 RDW Differential 38.6 Plt Count 274 MPV 9.7 Medical Necessity - Tobacco Use Smoking Status: Former smoker Assessment/Plan All Active Problems Infected prosthetic knee joint (Acute) 1. S/P explant right total knee with placement of antibiotic spacer POD #2 2. Continue Pain Medications: Tylenol and OxyIR 3. DVT Prophylaxis: Xarelto 4. PT/OT: Touchdown weightbearing right lower extremity, knee immobilizer with the knee in extension. 5. H & H: 9.7/29.3, asymptomatic 6. Encouraged Incentive Spirometry 7. Infectious disease consultation: Continue with current plan recommended by infectious disease. Plan will be for IV antibiotics vancomycin times 6 weeks. Patient has gram-positive cocci with previous aspiration staph lugdunensis. 8. Disposition: Plan will be for discharge to long term facility once PICC line has been established and we find appropriate long term facility. Case management involved with placement.
--- NOTE | 2018-01-31 08:57 | PN.ORTHO_ITS ---
Patient Problems: Active and Suspected Problems Infected prosthetic knee joint (Acute) Subjective: The patient was sitting in bed upon examination. Patient denies any chest pain, shortness of breath, dizziness, lightheadedness, nausea or vomiting, or calf pain. Pain is controlled on medications. No adverse overnight events. I nfectious disease has seen the patient and will require IV vancomycin for 6 weeks. Patient grew out gram-positive cocci. Aspiration on January 17, 2018 revealed staph lugdunensis. Patient states he wishes to drive to go to assisted facility here at [facility]. Objective: Vital signs stable and afebrile. Patient is able to plantarflex and dorsiflex actively. Sensation is intact to light touch to saphenous, sural, superficial and deep peroneal, and tibial distribution. Dressing is clean dry and intact. Knee immobilizer is in place Hemovac drain in place: Over last 24 hours 145 ml was removed, previous day was 200 ml. Negative Homans bilaterally, negative signs and symptoms of DVT. - Physical Exam General: Alert, Oriented x3, Cooperative, No apparent distress Vital Signs Temp Pulse Resp BP Pulse Ox 98.3 F 66 16 125/63 H 96 01/31/18 02:09 01/31/18 02:09 01/31/18 02:09 01/31/18 02:09 01/31/18 02:09 Oxygen Delivery Method Room Air Weight: 106 kg Body Mass Index (BMI) 37.5 Intake and Output for Last 24 Hours 01/29/18 01/30/18 01/31/18 23:59 23:59 23:59 Intake Total 1999 / 1999 3373 / 3373 1450 / 1450 Output Total 100 / 100 2375 / 2375 2755 / 2755 Balance 1900 / 1900 998 / 998 -1305 / -1305 Microbiology Past 72 Hours 01/29/18 14:09 Gram Stain - Final Aspirate - Other Wound Culture - Preliminary No growth-Final to follow Anaerobic Culture - Preliminary Checking for anaerobes, further studies to follow. 01/29/18 14:09 Gram Stain - Final Tissue - Other Wound Culture - Preliminary Gram positive organism Anaerobic Culture - Preliminary Checking for anaerobes, further studies to follow. 01/29/18 14:09 Gram Stain - Final Tissue - Other Wound Culture - Preliminary Gram positive organism Anaerobic Culture - Preliminary Checking for anaerobes, further studies to follow. 01/29/18 14:09 Gram Stain - Final Tissue - Other Wound Culture - Preliminary No growth-Final to follow Anaerobic Culture - Preliminary No growth in 48 hours. Laboratory Tests Past 24 Hrs 01/31/18 05:54 WBC 10.5 RBC 3.46 L Hgb 9.7 L Hct 29.3 L MCV 84.7 MCH 28.0 MCHC 33.1 RDW 13.0 RDW Differential 38.6 Plt Count 274 MPV 9.7 Medical Necessity - Tobacco Use Smoking Status: Former smoker Assessment/Plan All Active Problems Infected prosthetic knee joint (Acute) 1. S/P explant right total knee with placement of antibiotic spacer POD #2 2. Continue Pain Medications: Tylenol and OxyIR 3. DVT Prophylaxis: Xarelto 4. PT/OT: Touchdown weightbearing right lower extremity, knee immobilizer with the knee in extension. 5. H & H: 9.7/29.3, asymptomatic 6. Encouraged Incentive Spirometry 7. Infectious disease consultation: Continue with current plan recommended by infectious disease. Plan will be for IV antibiotics vancomycin times 6 weeks. Patient has gram-positive cocci with previous aspiration staph lugdunensis. 8. Disposition: Plan will be for discharge to assisted facility once PICC line has been established and we find appropriate assisted facility. Case management involved with placement.
--- NOTE | 2018-01-31 10:19 | PCM.PN.ID ---
Patient Problems: Active and Suspected Problems Infected prosthetic knee joint (Acute) Subjective: Feeling ok, pain controlled, no fever, no n/v/d or rash with iv vanc. - Physical Exam General: Alert, Cooperative, No apparent distress Lungs: Clear to auscultation, Normal air movement Cardiovascular: Regular rate, Regular Rhythm Abdomen: Soft, Non Tender, Non-Distended Skin: Incision - RLE wrapped Vital Signs Temp Pulse Resp BP Pulse Ox 97.9 F 65 16 135/58 H 99 01/31/18 08:35 01/31/18 08:35 01/31/18 08:35 01/31/18 08:35 01/31/18 08:35 Oxygen Delivery Method Room Air Weight: 106 kg Body Mass Index (BMI) 37.5 Intake and Output for Last 24 Hours 01/29/18 01/30/18 01/31/18 23:59 23:59 23:59 Intake Total 1999 3373 / 3373 1450 / 1450 Output Total 100 / 100 2375 / 2375 2755 / 2755 Balance 1900 / 1900 998 / 998 -1305 / -1305 Microbiology Past 72 Hours 01/29/18 14:09 Gram Stain - Final Aspirate - Other Wound Culture - Preliminary Gram positive organism Anaerobic Culture - Preliminary Checking for anaerobes, further studies to follow. 01/29/18 14:09 Gram Stain - Final Tissue - Other Wound Culture - Preliminary Gram positive organism Anaerobic Culture - Preliminary Checking for anaerobes, further studies to follow. 01/29/18 14:09 Gram Stain - Final Tissue - Other Wound Culture - Preliminary Gram positive organism Anaerobic Culture - Preliminary Checking for anaerobes, further studies to follow. 01/29/18 14:09 Gram Stain - Final Tissue - Other Wound Culture - Preliminary Anaerobic Culture - Preliminary No growth in 48 hours. Laboratory Tests Past 24 Hrs 01/31/18 05:54 WBC 10.5 RBC 3.46 L Hgb 9.7 L Hct 29.3 L MCV 84.7 MCH 28.0 MCHC 33.1 RDW 13.0 RDW Differential 38.6 Plt Count 274 MPV 9.7 Medical Necessity - Tobacco Use Smoking Status: Former smoker Route of nutrition/ use of supplements: [] Nutritional Intake: [] IV Site: [] Zuniga Catheter: [] - Assessment/Plan Antibiotics: [] Assessment/Plan: [] 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 Callaway. Surg cx with [facility]. Cont iv vanc. Plan will be for picc placement then 6 weeks iv vanc, stop date 03/12/18. Weekly bmp, cbc, vanc trough, and esr while on iv abx. Will order picc. Rx written for labs and abx. Will follow, d/w case finisher
--- NOTE | 2018-01-31 14:20 | CASEMGMT ---
Social Work Note Per AZRA Harris, pt is interested in TCU now at discharge. SW met with pt to confirm discharge plans. SW introduced self and role at [facility]. Pt is alert and orientated x4. Pt confirms that he would like to go to TCU at discharge. SW explained referral process and that pt will need pre-cert from insurance. PT states understanding. GISELA spoke with Yvette. Yvette states that she can accept pt and will submit for pre-cert. Plan: TCU pending pre-cert Viky Joel [employer] READING TEACHER, TRADITIONAL [employer] PRACTITIONER
[2018-01-31 16:38] LABS: Vancomycin, Trough Level 11.8 ug/mL (5.0-15.0)
--- NOTE | 2018-01-31 16:53 | PCM.RX.CS ---
Consult Pharmacy has been consulted to manage selected antiobiotic: Vancomycin Type of Consult: Follow-up Suspected Infection: Other Prior Doses of Antibiotics Received/Current Regimen: VANCOMYCIN 1250MG IV Q8H: 01/31/18 @0005, 0839, 1600 Labs: Sodium 136 mmol/L (136-145) 01/30/18 05:45 Potassium 4.0 mmol/L (3.5-5.1) 01/30/18 05:45 Chloride 100 mmol/L (98-107) 01/30/18 05:45 Carbon Dioxide 29.0 mmol/L (21.0-32.0) 01/30/18 05:45 Anion Gap 7 (5-15) 01/30/18 05:45 BUN 10 mg/dL (7-18) 01/30/18 05:45 Creatinine 0.65 mg/dL (0.70-1.30) L 01/30/18 05:45 Est GFR (MDRD) Af Amer 165 mL/min (>60) 01/30/18 05:45 Est GFR (MDRD) Non-Af 136 mL/min (>60) 01/30/18 05:45 BUN/Creatinine Ratio 15.4 RATIO (10-20) 01/30/18 05:45 Glucose 106 mg/dL (74-106) 01/30/18 05:45 Vancomycin Trough 11.8 ug/mL (5.0-15.0) 01/31/18 15:21 Microbiology: Microbiology 01/29/18 14:09 Aspirate - Other Gram Stain - Final 01/29/18 14:09 Aspirate - Other Wound Culture - Preliminary Gram Positive Cocci 01/29/18 14:09 Aspirate - Other Anaerobic Culture - Preliminary Checking for anaerobes, further studies to follow. 01/29/18 14:09 Tissue - Other Gram Stain - Final 01/29/18 14:09 Tissue - Other Wound Culture - Preliminary Beta hemolytic organism Gram Positive Cocci 01/29/18 14:09 Tissue - Other Anaerobic Culture - Preliminary Checking for anaerobes, further studies to follow. 01/29/18 14:09 Tissue - Other Gram Stain - Final 01/29/18 14:09 Tissue - Other Wound Culture - Preliminary Gram positive organism 01/29/18 14:09 Tissue - Other Anaerobic Culture - Preliminary Checking for anaerobes, further studies to follow. 01/29/18 14:09 Tissue - Other Gram Stain - Final 01/29/18 14:09 Tissue - Other Wound Culture - Preliminary 01/29/18 14:09 Tissue - Other Anaerobic Culture - Preliminary No growth in 48 hours. 01/25/18 13:50 Swab (Method) Nasal Screen MRSA/MSSA - Final Goal Trough: 15-20 mcg/mL Pharmacy Plan for Drug Dosing: A trough was drawn 7hrs from the last dose which resulted in a value of 11.8 (goal 15-20). Will increase vancomycin and check another trough in 4 doses. PLAN/RECOMMENDATIONS 1. Vancomycin 1500mg IV Q8hrs to start 02/01/18 @0000 2. Trough scheduled 02/01/18 @2330 3. Pharmacy Service will continue to monitor and adjust dosing as required.
[2018-01-31 21:20] VITALS: BP 146/77; PULSE 64; RESP 16; TEMP 37.3; O2SAT 98
[2018-02-01 03:20] VITALS: BP 129/64; PULSE 60; RESP 16; TEMP 36.7; O2SAT 98
[2018-02-01] MEDS: Acetaminophen 500 MG Tablet 1000 MG PO ×2 (05:28→15:01)
[2018-02-01] MEDS: Rivaroxaban 10 MG Tablet PO (05:28)
[2018-02-01 05:51] LABS: Hematocrit 26.9 % (40-54); Mean Corp Hgb Conc 33.5 g/gl (32-36); Mean Corpuscular Hgb 28.5 pg (27.0-32.0); Mean Corpuscular Volume 85.1 fL (80-94); Mean Platelet Vol. 9.4 fl (6.2-12.0); Platelet Count 262 K/mm3 (150-450); RBC Distribution Width CV 12.9 % (11.6-14.6); RBC Distribution Width SD 38.8 fl (35.1-43.9); Red Blood Count 3.16 M/mm3 (4.6-6.2); Scan Indicated on CBC? Y/N NO; White Blood Count 9.2 K/mm3 (4.4-11.0)
--- NOTE | 2018-02-01 07:23 | PCM.PN.ORT ---
Patient Problems: Active and Suspected Problems Infected prosthetic knee joint (Acute) Subjective: The patient was sitting in bed upon examination. Patient denies any chest pain, shortness of breath, dizziness, lightheadedness, nausea or vomiting, or calf pain. Pain is controlled on medications. No adverse overnight events. Plan is for patient to go to transitional care unit at [facility] upon discharge. We are currently waiting on insurance approval. Patient has only had 25 mL drained from Hemovac over 24 hours. Objective: Vital signs stable and afebrile. Patient is able to plantarflex and dorsiflex actively. Sensation is intact to light touch to saphenous, sural, superficial and deep peroneal, and tibial distribution. Dressing is clean dry and intact. Knee immobilizer is in place Hemovac drain in place: Over last 24 hours 25 ml was removed, previous day was 145 ml. Hemovac drain was pulled, Steri-Strip and compressive dressing was placed. Negative Homans bilaterally, negative signs and symptoms of DVT. - Physical Exam General: Alert, Oriented x3, Cooperative, No apparent distress Vital Signs Temp Pulse Resp BP Pulse Ox 98.0 F 60 16 129/64 H 98 02/01/18 03:20 02/01/18 03:20 02/01/18 03:20 02/01/18 03:20 02/01/18 03:20 Oxygen Delivery Method Room Air Weight: 106 kg Body Mass Index (BMI) 37.5 Intake and Output for Last 24 Hours 01/30/18 01/31/18 02/01/18 23:59 23:59 23:59 Intake Total 3373 / 3373 4061 / 4061 1130 / 1130 Output Total 2375 / 2375 4280 / 4280 675 / 675 Balance 998 / 998 -219 / -219 455 / 455 Microbiology Past 72 Hours 01/29/18 14:09 Gram Stain - Final Aspirate - Other Wound Culture - Preliminary Gram Positive Cocci Anaerobic Culture - Preliminary Checking for anaerobes, further studies to follow. 01/29/18 14:09 Gram Stain - Final Tissue - Other Wound Culture - Preliminary Beta hemolytic organism Gram Positive Cocci Anaerobic Culture - Preliminary Checking for anaerobes, further studies to follow. 01/29/18 14:09 Gram Stain - Final Tissue - Other Wound Culture - Preliminary Gram positive organism Anaerobic Culture - Preliminary Checking for anaerobes, further studies to follow. 01/29/18 14:09 Gram Stain - Final Tissue - Other Wound Culture - Preliminary Anaerobic Culture - Preliminary No growth in 48 hours. Laboratory Tests Past 24 Hrs 01/31/18 02/01/18 15:21 05:35 WBC 9.2 RBC 3.16 L Hgb 9.0 L Hct 26.9 L MCV 85.1 MCH 28.5 MCHC 33.5 RDW 12.9 RDW Differential 38.8 Plt Count 262 MPV 9.4 Vancomycin Trough 11.8 Medical Necessity - Tobacco Use Smoking Status: Former smoker Assessment/Plan All Active Problems Infected prosthetic knee joint (Acute) 1. S/P explant right total knee with placement of antibiotic spacer POD #3 2. Continue Pain Medications: Tylenol and OxyIR 3. DVT Prophylaxis: Xarelto 4. PT/OT: Touchdown weightbearing right lower extremity, knee immobilizer with the knee in extension. 5. H & H: 9.0/26.9, asymptomatic 6. Encouraged Incentive Spirometry 7. Infectious disease consultation: Continue with current plan recommended by infectious disease. Plan will be for IV antibiotics vancomycin times 6 weeks. Patient has gram-positive cocci with previous aspiration staph lugdunensis. 8. Hemovac drain was pulled at today's evaluation. There is only 25 mL of drainage over the past 24 hours. Steri-Strip was applied and compressive Zeyad wrap and dressing were placed. 9. Disposition: Orthopedically stable, plan is for discharge to transitional care unit at [facility] once pre-CERT has been obtained. Patient has already had PICC line established. We will continue with recommendations for antibiotics by infectious disease. Patient will follow-up per postop instructions. Prescriptions are attached to chart. Patient will continue with Xarelto for 2 weeks postoperatively for DVT prophylaxis. At his 2-week follow-up we will switch him over to a baby aspirin 81 mg twice daily for an additional 2 weeks. Continue with Tylenol and oxycodone for pain control. Continue with knee immobilizer. No range of motion at this time of the right knee. He will be touchdown weightbearing for 2 weeks followed by 25% weightbearing for the remainder of the time the antibiotic spacer is in place. At 2 weeks he has no limitations on range of motion and can begin physical therapy at that time.
--- NOTE | 2018-02-01 07:33 | PCM.DC.TKR ---
Discharge Diet: No Restrictions Discharge Activity: May Not Drive May shower in (days): 2 Ice area for (Minutes): 20 - every hour while awake. Weight Bearing Status: - - Touchdown weightbearing right lower extremity Elevate: Operative Extremity Additional Activity Instructions:: Wear elastic stockings for 2 weeks after your surgery. Call your doctor if your incision/area has: Continuous Slow Oozing, Sudden Increased Bleeding, Increased Pain/ Swelling, Increased Redness, Foul Smelling Discharge Call your doctor if you observe: Fever of 101 or Higher, Coldness, Increased Pain, Numbness or Tingling, Change in Color, Calf discomfort, Uncontrolled pain Change Dressing in (Days):: 1 - and daily as needed. Additional Instructions: Follow [facility] postop instructions Allergies/Adverse Reactions: Allergies No Known Allergies Allergy (Verified 01/25/18 13:13) Medications to take at Discharge Lisinopril [Prinivil] 10 mg PO DAILY 12/25/16 Vancomycin IV 1,250 mg IV Q8H #120 vial 01/31/18 Acetaminophen [Tylenol] 1,000 mg PO Q8 14 Days tablet 02/01/18 Oxycodone [Oxyir] 5 - 10 mg PO Q4H PRN PRN 5 Days #60 tab 02/01/18 Rivaroxaban [Xarelto] 10 mg PO DAILY@0600 11 Days tablet 02/01/18 Senna/Docusate Sodium [Senokot-S] 2 tablet PO BID tablet 02/01/18 The following prescriptions were given: Oxycodone [Oxyir] 5 - 10 mg PO Q4H PRN PRN 5 Days #60 tab PRN Reason: Mod-Severe Pain (4-01/09) Vancomycin IV 1,250 mg IV Q8H #120 vial Primary Care Physician: Eladia Davies DO [Primary Care Provider] - Test Results: Test results from this visit will be discussed in further detail at your follow-up appointment, if applicable. Please Follow Up With: Paul Harris PA-C When: 02/11/18 @ 1:15 pm
[2018-02-01] MEDS: oxyCODONE 5 MG Tablet PO (07:54)
[2018-02-01] MEDS: Famotidine 20 MG Tablet PO (08:14)
[2018-02-01] MEDS: Senna/Docusate Sodium 1 Tablet 2 TABLET PO (08:14)
[2018-02-01] MEDS: Lisinopril 10 MG Tablet PO (08:14)
[2018-02-01 08:17] VITALS: BP 125/61; PULSE 69; RESP 18; TEMP 37.2; O2SAT 99
--- NOTE | 2018-02-01 08:58 | CASEMGMT ---
Social Work Note SW received message from [facility] in TCU that pre-cert has been obtained and pt is able to discharge today. Plan: TCU today Viky Joel ATTENDING PHYSICIAN, PRIMER INSERTING MACHINE OPERATOR
--- NOTE | 2018-02-01 14:46 | PCM.PN.ID ---
Patient Problems: Active and Suspected Problems Infected prosthetic knee joint (Acute) Subjective: Doing well, moving to TCU, no fever, no n/v/d. - Physical Exam General: Alert, Cooperative, No apparent distress Lungs: Clear to auscultation, Normal air movement Cardiovascular: Regular rate, Regular Rhythm Abdomen: Soft, Non Tender, Non-Distended Skin: Incision - drain out Vital Signs Temp Pulse Resp BP Pulse Ox 99.0 F 69 18 125/61 H 99 02/01/18 08:17 02/01/18 08:17 02/01/18 08:17 02/01/18 08:17 02/01/18 08:17 Oxygen Delivery Method Room Air Weight: 106 kg Body Mass Index (BMI) 37.5 Intake and Output for Last 24 Hours 01/30/18 01/31/18 02/01/18 23:59 23:59 23:59 Intake Total 3373 / 3373 4061 / 4061 3796 / 3796 Output Total 2375 / 2375 4280 / 4280 2024 / 2024 Balance 998 / 998 -219 / -219 1771 / 1771 Microbiology Past 72 Hours 01/29/18 14:09 Gram Stain - Final Aspirate - Other Wound Culture - Preliminary Gram Positive Cocci Anaerobic Culture - Preliminary Checking for anaerobes, further studies to follow. 01/29/18 14:09 Gram Stain - Final Tissue - Other Wound Culture - Preliminary Gram Positive Cocci Anaerobic Culture - Preliminary No growth in 48 hours. 01/29/18 14:09 Gram Stain - Final Tissue - Other Wound Culture - Final Staphylococcus lugdunensis Anaerobic Culture - Preliminary Checking for anaerobes, further studies to follow. 01/29/18 14:09 Gram Stain - Final Tissue - Other Wound Culture - Final Staphylococcus lugdunensis Anaerobic Culture - Preliminary Checking for anaerobes, further studies to follow. Laboratory Tests Past 24 Hrs 01/31/18 02/01/18 15:21 05:35 WBC 9.2 RBC 3.16 L Hgb 9.0 L Hct 26.9 L MCV 85.1 MCH 28.5 MCHC 33.5 RDW 12.9 RDW Differential 38.8 Plt Count 262 MPV 9.4 Vancomycin Trough 11.8 Medical Necessity - Tobacco Use Smoking Status: Former smoker Route of nutrition/ use of supplements: [] Nutritional Intake: [] IV Site: [] Zuniga Catheter: [] - Assessment/Plan Antibiotics: [] Assessment/Plan: [] R knee staph shericensis PJI - now s/p spacer placement 01/29/[address] Callaway. Surg cx with staph shericensis. Cont iv vanc. Plan for 6 weeks iv vanc, stop date 03/12/18. Weekly bmp, cbc, vanc trough, and esr while on iv abx. Rx written for labs and abx. Will follow, d/w rn case manager hospice
[2018-02-01 15:02] VITALS: BP 120/66; PULSE 73; RESP 18; TEMP 37.3; O2SAT 100
--- NOTE | 2018-02-04 08:00 | PCM.DC.SUM ---
Discharge Date and Diagnosis - Problem List Patient Problems: Active and Suspected Problems Osteoarthritis of knees, bilateral (Acute) - Primary Discharge Diagnosis Active and Suspected Problems Infected right total knee - Secondary Discharge Diagnosis Chronic Problems Hypertension (Chronic) Hospital Course and Treatment Summary of Care Provided: Patient is a 52-year-old male who had a previous right total knee arthroplasty in 2017 followed by chronic swelling. Patient was worked up for infection and was noted to have staph on aspiration. After failing conservative measures, the patient opted to proceed with a explant right total knee arthroplasty with placement of antibiotic spacer. The patient underwent the above-stated procedure on January 29, 2018. Patient did receive perioperative antibiotics. Intraoperatively was uneventful. For details please see dictated operative note. The patient was placed in thigh-high teds, bilateral SCDs, remained stable in recovery. Patient was admitted to the 3rd floor at [facility]. The patient's pain was managed with the use of IV and p.o. pain medications. Patient was placed in a knee immobilizer postoperatively. Infectious disease was consulted and will be managing postoperative antibiotics. Patient will be placed on IV antibiotics for 6 weeks. Patient participated in physical therapy. Patient was discharged on postoperative day #3 to transitional care unit at [facility]. Patient was given medications stated below. Patient will follow up with [facility] per postop instructions for reassessment. Patient Problems: Active and Suspected Problems Osteoarthritis of knees, bilateral (Acute) - Physical Exam Vital Signs Temp Pulse Resp BP Pulse Ox 99.1 F 73 18 120/66 100 02/01/18 15:02 02/01/18 15:02 02/01/18 15:02 02/01/18 15:02 02/01/18 15:02 Oxygen Delivery Method Room Air Weight: 106 kg Body Mass Index (BMI) 37.5 Microbiology Past 72 Hours 01/29/18 14:09 Gram Stain - Final Tissue - Other Wound Culture - Final Staphylococcus lugdunensis Anaerobic Culture - Final No growth in 5 days. 01/29/18 14:09 Gram Stain - Final Aspirate - Other Wound Culture - Final Staphylococcus lugdunensis Anaerobic Culture - Final No anaerobic bacteria isolated. 01/29/18 14:09 Gram Stain - Final Tissue - Other Wound Culture - Final Staphylococcus lugdunensis Anaerobic Culture - Final No anaerobic bacteria isolated. 01/29/18 14:09 Gram Stain - Final Tissue - Other Wound Culture - Final Staphylococcus lugdunensis Anaerobic Culture - Final No anaerobic bacteria isolated. Discharge Diet: No Restrictions Discharge Activity: May Not Drive May shower in (days): 2 Ice area for (Minutes): 20 - every hour while awake. Weight Bearing Status: - - Touchdown weightbearing right lower extremity Keep extremity elevated above heart level: Operative Extremity Additional Activity Instructions:: Wear elastic stockings for 2 weeks after your surgery. Call your doctor if your incision/area has: Continuous Slow Oozing, Sudden Increased Bleeding, Increased Pain/ Swelling, Increased Redness, Foul Smelling Discharge Call your doctor if you observe: Fever of 101 or Higher, Coldness, Increased Pain, Numbness or Tingling, Change in Color, Calf discomfort, Uncontrolled pain Change Dressing in (Days):: 1 - and daily as needed. Home Medications: Medications to take at Discharge Lisinopril [Prinivil] 10 mg PO DAILY 12/25/16 Acetaminophen [Tylenol] 1,000 mg PO Q8 02/01/18 Oxycodone [Oxyir] 5 - 10 mg PO Q4H PRN PRN 5 Days #60 tab 02/01/18 Rivaroxaban [Xarelto] 10 mg PO DAILY@0600 02/01/18 Senna/Docusate Sodium [Senokot-S] 2 tablet PO BID 02/01/18 Vancomycin IV 1,250 mg IV Q8H 02/01/18 Following Prescrptions Were Given to Patient: Oxycodone [Oxyir] 5 - 10 mg PO Q4H PRN PRN 5 Days #60 tab PRN Reason: Mod-Severe Pain (4-10) Primary Care Physician: Eladia Davies DO [Primary Care Provider] - Please Follow Up With: Paul aHrris PA-C When: 02/11/18 @ 1:15 pm Additional Instructions: Follow [facility] postop instructions Medical Necessity - Tobacco Use Smoking Status: Former smoker Meaningful Use Info Meaningful Use Diagnoses (Choose all that apply): None applicable
== END 2018-02-01 16:05 | disposition skilled nursing facility (03) | DRG 464 ==
LOC: ACINP 11:46 → MS3 12:57
PROVIDERS: Anesthesiology; Internal Medicine Infectious Disease; Admitting Provider Specialist; Referring Provider Specialist; Visit Provider Specialist
PROC: 0SPC0JZ Removal of Synthetic Substitute from Right Knee Joint, Open Approach (ICD-10-PCS; CPT 27488; principal; 2018-01-29 13:35)
DX: T84.53XA Infection and inflammatory reaction due to internal right knee prosthesis, initial encounter (principal); M86.8X5 Other osteomyelitis, thigh; Z96.651 Presence of right artificial knee joint; B95.7 Other staphylococcus as the cause of diseases classified elsewhere; Z87.891 Personal history of nicotine dependence; Z23 Encounter for immunization; M65.861 Other synovitis and tenosynovitis, right lower leg
CPT/HCPCS: 36415; 36569; 73560; 80048; 80202; 85027; 87015; 87070; 87075; 87077; 87081; 87102; 87116; 87186; 87205; 87206; 93005; 97161; 97165; 97530; 97535; 97802; 99251; C1776; J7040; J7050; J7120; 90686; A4216; G0463; J3260

== ENCOUNTER 2018-02-01 16:25 | Inpatient (IN) | payer BC, SELFPAY ==
[2018-02-01 16:54] VITALS: BP 140/68; PULSE 71; RESP 18; TEMP 36.9; O2SAT 97
--- NOTE | 2018-02-01 16:55 | NURSING ---
Pt admitted to room 19 from MS2 via bed. Oriented to room and call light system explained.
[2018-02-01] MEDS: oxyCODONE 5 MG Tablet PO (20:56)
[2018-02-01 21:00] VITALS: BMI 37.3
[2018-02-01 22:04] VITALS: BMI 37.3
[2018-02-01] MEDS: Acetaminophen 500 MG Tablet 1000 MG PO (22:07)
--- NOTE | 2018-02-01 22:59 | HP.PCM_ITS ---
Problem List (1) Hypertension Status: Chronic (2) Osteoarthritis of knees, bilateral Status: Acute (3) Infected prosthetic knee joint Status: Acute History of Present Illness Date of Admission: 02/01/18 Chief Complaint: Here for rehabilitation, strengthening, intravenous antibiotic, prior to discharge home with spouse. The patient is a 52 year old Male with below past medical history with below past medical history significant for Hypertension, osteoarthritis of bilateral knees. 01/09/2017 Patient had right total knee arthroplasty. Swelling, tightness right knee persisted. Patient's job requires standing many hours on concrete. CRP 6.71, ESR 57. Right knee arthrocentesis per Dr. Callaway, culture grew staph, patient on Doxycycline. 01/29/2018 Dr. Callaway performed explant right total knee with placement of antibiotic spacer. Insertion of nonbiodegradable antibiotic delivery system. 01/29/2018 Dr. Neumann noted surgery cultures growing gram positive cocci. Doxycycline stopped. Start IV Vancomycin, recommend 6 weeks of IV antibiotics. Stop date 03/12/2018. Culture grew staph lugdunensis. PICC line placed right upper extremity. 02/01/2018 Admit to TCU with debility, here for rehabilitation, strengthening, intravenous antibiotics, prior to further surgery with Dr. Callaway. Past Medical History Past Medical History (Chronic Problems): Chronic Problems Hypertension (Chronic) Allergies No Known Allergies Allergy (Verified 01/25/18 13:13) Home Medications: Ambulatory Orders Medication Instructions Recorded Lisinopril [Prinivil] 10 mg PO DAILY 12/25/16 Acetaminophen [Tylenol] 1,000 mg PO Q8 02/01/18 Oxycodone [Oxyir] 5 - 10 mg PO Q4H PRN PRN 5 Days 02/01/18 #60 tab Rivaroxaban [Xarelto] 10 mg PO DAILY@0600 02/01/18 Senna/Docusate Sodium [Senokot-S] 2 tablet PO BID 02/01/18 Vancomycin IV 1,250 mg IV Q8H 02/01/18 Surgical History: total knee arthroplasty - Right., - - Carpal tunnel release (R), Vasectomy, Right knee arthroscopic surgery, Explant right total knee with placement of antibiotic spacer. Psychiatric History: No pertinent psych hx Lives: Spouse/ Significant Other Smoking Status: Former smoker Tobacco Use: Non-smoker Alcohol: Occasional Drugs: None - *Family History Maternal History Items: No pertinent history Paternal History Items: No pertinent history Review of Systems Constitutional: Denies: Chills, Fever, Weight Change HEENT: Denies: Head Aches, Sinus Congestion, Sinus Drainage Cardiovascular: Denies: Chest Pain, Palpitations Respiratory: Denies: Cough, Shortness of breath at rest, Sputum production Gastrointestinal: Denies: Abdominal Pain, Nausea, Vomiting Genitourinary: Denies: Dysuria Musculoskeletal: Reports: Joint Pain - Right knee pain.. Denies: Joint Tenderness Skin: Denies: Rash, Wounds Neurological: Denies: Numbness, Tingling, Focal weakness Psychiatric: Denies: Anxiety, Depression, Homicidal Ideations, Suicidal Ideations Hematologic/ Lymphatic: Denies: Easy Bruising, Easy Bleeding VTE Information - Inpt Only VTE Present on Admission: No VTE Mechan Device Prophylaxis: Knee High JUAN Hose VTE Pharm Prophylaxis ordered?: Yes Patient Problems: Active and Suspected Problems Osteoarthritis of knees, bilateral (Acute) - Physical Exam General: Alert, Oriented x3, Cooperative HEENT: Atraumatic, PERRLA, EOMI, Normocephalic Neck: Supple, No JVD, Negative Carotid Bruits Lungs: Clear to auscultation, Normal air movement Cardiovascular: Regular rate, No murmurs Abdomen: Bowel Sounds Present, Soft, Non Tender Extremities: No edema, Capillary Refill Less than 3 Seconds Skin: No rashes, No breakdown, Incision - Right knee incision clean, dry, intact. Musculoskeletal: No Tenderness to Palpation of Joints or Extremities Neurological: Cranial nerves II-XII grossly intact Psych/Mental Status: Normal Affect, Appropriate Vital Signs Temp Pulse Resp BP Pulse Ox 98.4 F 71 18 140/68 H 97 02/01/18 16:54 02/01/18 16:54 02/01/18 16:54 02/01/18 16:54 02/01/18 16:54 Oxygen Delivery Method Room Air Weight: 104.916 kg Body Mass Index (BMI) 37.3 Intake and Output for Last 24 Hours 01/30/18 01/31/18 02/01/18 23:59 23:59 23:59 Intake Total 420 / 420 Balance 420 / 420 Assessment/Plan All Active Problems Infected prosthetic knee joint (Acute) Osteoarthritis of knees, bilateral (Acute) 52 year old male with below past medical history hospitalized for infected right prosthetic knee, underwent explant right total knee with placement of antibiotic spacer 01/29/[address] Callaway, admitted to TCU with debility, here for rehabilitation, strengthening, intravenous antibiotics, prior to discharge home with spouse. Will need further right knee surgery with Dr. Callaway in near future. * Debility - PT/OT. * Pain - Tylenol 1000MG Q8H, Oxycodone 5-10MG Q4H PRN moderate to severe pain. * Bowel - Miralax 17GM daily, Senna/colace 2 tablets BID, Dulcolax 10MG PO daily PRN. * Pneumonia vaccination - Too young for pneumonia vaccination. * DVT prophylaxis - Xarelto 10MG thru 02/15/2018. * Hypertension - Lisinopril 10MG daily. * Infected right prosthetic knee status post explant with placement of antibiotic spacer - Vancomycin 1.5GM IV Q8H thru 03/12/2018, Dr. Neumann following.
[2018-02-02 00:38] LABS: Vancomycin, Trough Level 14.7 ug/mL (5.0-15.0)
[2018-02-02] MEDS: 0.9% NaCl IVPB Med Flush (250 mL) 15 ML IV ×2 (00:51→23:58)
[2018-02-02] MEDS: 0.9% NaCl PICC Flush IV ×3 (00:52→15:16)
[2018-02-02] MEDS: Lisinopril 10 MG Tablet PO (05:51)
[2018-02-02] MEDS: Acetaminophen 500 MG Tablet 1000 MG PO ×3 (05:51→22:00)
[2018-02-02] MEDS: Rivaroxaban 10 MG Tablet PO (05:51)
[2018-02-02 06:05] LABS: Absolute Lymphocyte Count 1.22 X10^3/ul (0.83-4.51); Absolute Neutrophil Count 4.6 X10^3/uL (2.0-7.7); Basophil# 0.01 X10^3/uL; Basophil% 0.2 % (0-1); Eosinophil# 0.15 X10^3/uL; Eosinophils% 2.3 % (0-5); Hematocrit 26.2 % (40-54); Hemoglobin 8.7 g/dl (13.0-16.5); Lymphocyte # 1.22 X10^3/ul (4.0); Lymphocyte % 18.8 % (19-41); Mean Corp Hgb Conc 33.2 g/gl (32-36); Mean Corpuscular Volume 84.2 fL (80-94); Monocyte# 0.51 X10^3/uL; Monocyte% 7.9 % (0-10); Neutrophil # 4.58 X10^3/uL (2.7-7.7); Neutrophil % 70.6 % (47-70); POSITIVE COUNT NO; POSITIVE DIFFERENTIAL NO; POSITIVE MORPHOLOGY NO; Platelet Count 234 K/mm3 (150-450); RBC Distribution Width CV 13.4 % (11.6-14.6); Red Blood Count 3.11 M/mm3 (4.6-6.2); White Blood Count 6.5 K/mm3 (4.4-11.0)
[2018-02-02 06:11] LABS: Erythrocyte Sedimentation Rate 83 mm/hr (0-20)
[2018-02-02 06:16] LABS: Anion Gap 7 (5-15); BUN 8 mg/dL (7-18); BUN/Creat Ratio 15.4 RATIO (10-20); Calcium,Total 8.2 mg/dL (8.5-10.1); Chloride 104 mmol/L (98-107); Creatinine, Serum 0.52 mg/dL (0.70-1.30); EST Glomerular Filtration Rate 177 mL/min (>60); Est Glom Filt Rate - Afr Amer 215 mL/min (>60); Estimated Creatinine Clearance 148.25 ml/min; Glucose 97 mg/dL (74-106); Potassium 3.7 mmol/L (3.5-5.1); Sodium Level 139 mmol/L (136-145)
[2018-02-02] MEDS: oxyCODONE 5 MG Tablet PO ×2 (11:24→20:36)
[2018-02-02] MEDS: Tuberculin,Purif.prot.deriv. 50 TU/ML Vial 5 ML ID (13:32)
[2018-02-02 15:41] VITALS: BP 125/62; PULSE 73; RESP 18; TEMP 36.7; O2SAT 97
[2018-02-03] MEDS: 0.9% NaCl PICC Flush IV ×3 (00:04→16:38)
[2018-02-03] MEDS: Acetaminophen 500 MG Tablet 1000 MG PO ×2 (06:13→14:25)
[2018-02-03] MEDS: Lisinopril 10 MG Tablet PO (06:13)
[2018-02-03] MEDS: Rivaroxaban 10 MG Tablet PO (06:14)
[2018-02-03] MEDS: Iron Polysaccharide Complex 150 MG CAPSULE PO (07:34)
[2018-02-03] MEDS: oxyCODONE 5 MG Tablet PO ×2 (12:28→20:39)
[2018-02-03 16:00] VITALS: BP 129/65; PULSE 77; RESP 16; TEMP 35.6; O2SAT 97
[2018-02-04] MEDS: 0.9% NaCl PICC Flush IV ×3 (00:09→16:33)
[2018-02-04] MEDS: Acetaminophen 500 MG Tablet 1000 MG PO ×4 (00:10→21:13)
[2018-02-04] MEDS: 0.9% NaCl IVPB Med Flush (250 mL) 15 ML IV (00:13)
[2018-02-04] MEDS: Lisinopril 10 MG Tablet PO (06:17)
[2018-02-04] MEDS: Rivaroxaban 10 MG Tablet PO (06:17)
[2018-02-04 07:57] LABS: Vancomycin, Trough Level 16.2 ug/mL (5.0-15.0)
[2018-02-04] MEDS: oxyCODONE 5 MG Tablet PO ×2 (08:44→17:55)
[2018-02-04] MEDS: Iron Polysaccharide Complex 150 MG CAPSULE PO (08:45)
--- NOTE | 2018-02-04 09:55 | PCM.RX.CS ---
Consult Pharmacy has been consulted to manage selected antiobiotic: Vancomycin Type of Consult: Follow-up Suspected Infection: Skin/Soft tissue Prior Doses of Antibiotics Received/Current Regimen: VANCOMYCIN 1250MG IV Q8H: 02/03 @1638, 13/08 @0003, 0845 Labs: Sodium 139 mmol/L (136-145) 02/02/18 05:55 Potassium 3.7 mmol/L (3.5-5.1) 02/02/18 05:55 Chloride 104 mmol/L (98-107) 02/02/18 05:55 Carbon Dioxide 28.0 mmol/L (21.0-32.0) 02/02/18 05:55 Anion Gap 7 (5-15) 02/02/18 05:55 BUN 8 mg/dL (7-18) 02/02/18 05:55 Creatinine 0.52 mg/dL (0.70-1.30) L 02/02/18 05:55 Est GFR (MDRD) Af Amer 215 mL/min (>60) 02/02/18 05:55 Est GFR (MDRD) Non-Af 177 mL/min (>60) 02/02/18 05:55 BUN/Creatinine Ratio 15.4 RATIO (10-20) 02/02/18 05:55 Glucose 97 mg/dL (74-106) 02/02/18 05:55 Vancomycin Trough 16.2 ug/mL (5.0-15.0) H 02/04/18 07:10 Goal Trough: 15-20 mcg/mL Pharmacy Plan for Drug Dosing: The patient had a vancomycin trough drawn 02/04 @0710, which resulted in a value of 16.2 (~7hrs from last administered dose). This is within the patient's goal trough range of 15-20. Given that the patient now has had a therapeutic vancomycin troughs on this dose, will plan on drawing a weekly vancomycin trough to reassess dosing. Will order a trough sooner if there is a significant change in renal function/ patient status. PLAN/RECOMMENDATIONS 1. Continue vancomycin 1500mg Q8hrs 2. Trough scheduled for 02/11/18 @0730 3.Pharmacy Service will continue to monitor and adjust dosing as required.
[2018-02-04 15:21] VITALS: BP 122/69; PULSE 74; RESP 14; TEMP 36.8; O2SAT 99
--- NOTE | 2018-02-04 15:28 | PCM.PN.ID ---
Patient Problems: Active and Suspected Problems Osteoarthritis of knees, bilateral (Acute) Subjective: Pain controlled, no issues with picc, no fever, no n/v/d. - Physical Exam General: Alert, Cooperative, No apparent distress Lungs: Clear to auscultation, Normal air movement Cardiovascular: Regular rate, Regular Rhythm Abdomen: Soft, Non Tender, Non-Distended Skin: No rashes, Incision - wrapped Vital Signs Temp Pulse Resp BP Pulse Ox 98.3 F 74 14 122/69 H 99 02/04/18 15:21 02/04/18 15:21 02/04/18 15:21 02/04/18 15:21 02/04/18 15:21 Oxygen Delivery Method Room Air Weight: 104.916 kg Body Mass Index (BMI) 37.3 Intake and Output for Last 24 Hours 02/03/18 02/03/18 02/04/18 00:59 23:59 23:59 Intake Total 600 / 600 Output Total 1325 / 1325 Balance -725 / -725 Laboratory Tests Past 24 Hrs 02/04/18 07:10 Vancomycin Trough 16.2 H Medical Necessity - Tobacco Use Smoking Status: Former smoker Tobacco Use: Non-smoker Route of nutrition/ use of supplements: [] Nutritional Intake: [] IV Site: [] Zuniga Catheter: [] - Assessment/Plan Antibiotics: [] Assessment/Plan: [] Active and Suspected Problems Osteoarthritis of knees, bilateral (Acute) 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 Callaway. Surg cx with staph lugdunensis. Cont iv vanc. Plan for 6 weeks iv vanc, stop date 03/12/18. Weekly bmp, cbc, vanc trough, and esr while on iv abx. Will follow
[2018-02-05] MEDS: 0.9% NaCl IVPB Med Flush (250 mL) 15 ML IV (00:08)
[2018-02-05] MEDS: 0.9% NaCl PICC Flush IV ×3 (00:08→15:46)
[2018-02-05] MEDS: oxyCODONE 5 MG Tablet PO ×3 (03:42→15:44)
[2018-02-05] MEDS: Rivaroxaban 10 MG Tablet PO (06:03)
[2018-02-05] MEDS: Lisinopril 10 MG Tablet PO (06:03)
[2018-02-05] MEDS: Acetaminophen 500 MG Tablet 1000 MG PO ×3 (06:04→21:02)
[2018-02-05] MEDS: Iron Polysaccharide Complex 150 MG CAPSULE PO (07:42)
[2018-02-05 16:00] VITALS: BP 122/63; PULSE 79; RESP 16; TEMP 35.7; O2SAT 99
[2018-02-06] MEDS: 0.9% NaCl IVPB Med Flush (250 mL) 15 ML IV ×2 (00:14→15:47)
[2018-02-06] MEDS: 0.9% NaCl PICC Flush IV ×3 (00:14→23:18)
[2018-02-06] MEDS: Acetaminophen 500 MG Tablet 1000 MG PO ×3 (05:58→22:00)
[2018-02-06] MEDS: Lisinopril 10 MG Tablet PO (05:58)
[2018-02-06] MEDS: Rivaroxaban 10 MG Tablet PO (05:58)
[2018-02-06] MEDS: oxyCODONE 5 MG Tablet PO ×4 (06:10→23:23)
[2018-02-06] MEDS: Iron Polysaccharide Complex 150 MG CAPSULE PO (09:40)
--- NOTE | 2018-02-06 10:01 | CASEMGMT ---
Plan of care meeting held. Resident present as well as resident family. No discharge date set at this time. Resident with insurance update due on 02/06/18 and aware that continued stay approval is not guaranteed. Resident plans to discharge to home alone at time of discharge. Resident with continued pain and some difficulties with I.V. being managed at this time. Resident plans to return to the 2-story home that has stairs to enter. Resident currently unable to manage medical needs within the community between, wound, I.V. therapy and physical needs. Resident and resident family reporting concerns with resident returning to home at this time. Plan is to continue with further care and treatment on the Transitional Care Unit at this time. Will update insurance today and communicate outcome. Support given. Will continue to follow. RJ Vernon, ROUNDHOUSE FIRER/FIREMAN
--- NOTE | 2018-02-06 15:18 | CASEMGMT ---
Insurance Clinical information faxed. Pending continued stay approval at this time. Auth#[id number] RJ Vernon, MARINE STRUCTURAL DESIGNER
--- NOTE | 2018-02-06 15:32 | PCM.PN.RX ---
<Yovanny Correa D - Last Filed: 02/06/18 15:32> Progress Note - Pharmacy Subjective: TCU Admission Objective: Allergies No Known Allergies Allergy (Verified 01/25/18 13:13) Current Medications Generic Name Dose Route Start Last Admin Trade Name Freq PRN Reason Stop Dose Admin Acetaminophen 1,000 mg 02/01/18 22:00 02/06/18 14:57 Tylenol PO 1,000 mg Q8 BHARATI Administration Bisacodyl 10 mg 02/01/18 23:16 Dulcolax PO DAILY PRN Constipation Heparin Sodium (Beef Lung) 50 units 02/01/18 23:45 IV UD PRN HEPARIN FLUSH Vancomycin HCl 1,500 mg/ 530 mls @ 250 mls/hr 02/02/18 00:00 02/06/18 09:40 Sodium Chloride IV 03/12/18 00:01 250 mls/hr Q8H BHARATI Administration Vancomycin IV Pharmacy to Dose 500 mls @ 250 mls/hr 02/01/18 17:54 1 ea/ Sodium Chloride IV PRN PRN Rx to Dose Protocol Sodium Chloride 250 mls @ 15 mls/hr 02/01/18 23:45 02/06/18 00:14 IV 15 mls/hr .[id number] PRN Administration SALINE FLUSH Lisinopril 10 mg 02/02/18 06:00 02/06/18 05:58 Zestril PO 10 mg DAILY BHARATI Administration Oxycodone HCl 5 - 10 mg 02/01/18 16:58 02/06/18 12:43 Oxyir PO 10 mg Q4H PRN PRN Administration MOD-SEVERE PAIN (4-10/10) Polyethylene Glycol 17 gm 02/02/18 06:00 02/06/18 05:58 Miralax PO Not Given DAILY [facility] Polysaccharide Iron Complex 150 mg 02/03/18 08:00 02/06/18 09:40 Ferrex 150 PO 150 mg DAILYCM [facility] Administration Rivaroxaban 10 mg 02/02/18 06:00 02/06/18 05:58 Xarelto PO 02/15/18 06:01 10 mg DAILY@0600 [facility] Administration Senna/Docusate Sodium 2 tablet 02/01/18 18:30 02/06/18 05:58 Senokot-S, Silvia-Colace PO Not Given BID BHARATI Sodium Chloride 10 - 20 ml 02/01/18 23:45 02/06/18 00:14 IV 20 ml UD PRN Administration PICC FLUSH Tuberculin PPD 5 tu 02/09/18 10:00 Tubersol, Aplisol, Ppd ID 02/09/18 10:01 X1 ONE Problem List Hypertension (Chronic) Osteoarthritis of knees, bilateral (Acute) Vital Signs Temp Pulse Resp BP Pulse Ox 96.3 F L 79 16 122/63 H 99 02/05/18 16:00 02/05/18 16:00 02/05/18 16:00 02/05/18 16:00 02/05/18 16:00 Oxygen Delivery Method Room Air Weight: 104.411 kg Body Mass Index (BMI) 37.3 Sodium 139 mmol/L (136-145) 02/02/18 05:55 Potassium 3.7 mmol/L (3.5-5.1) 02/02/18 05:55 Chloride 104 mmol/L (98-107) 02/02/18 05:55 Carbon Dioxide 28.0 mmol/L (21.0-32.0) 02/02/18 05:55 Anion Gap 7 (5-15) 02/02/18 05:55 BUN 8 mg/dL (7-18) 02/02/18 05:55 Creatinine 0.52 mg/dL (0.70-1.30) L 02/02/18 05:55 Est GFR (MDRD) Af Amer 215 mL/min (>60) 02/02/18 05:55 Est GFR (MDRD) Non-Af 177 mL/min (>60) 02/02/18 05:55 BUN/Creatinine Ratio 15.4 RATIO (10-20) 02/02/18 05:55 Glucose 97 mg/dL (74-106) 02/02/18 05:55 Vancomycin Trough 16.2 ug/mL (5.0-15.0) H 02/04/18 07:10 Assessment/Plan: 1) Pain APAP scheduled, oxycodone prn. Continue to monitor prn medication use, daily pain scores. 2) ID Vancomycin until 03/12. ID following, pharmacy adjusting dose as needed. Continue to monitor renal function, s/s infection. 3) HTN Lisinopril daily. Continue to monitor BP/HR, renal function, electrolytes. 4) DVT PPx Rivaroxaban daily. Continue to monitor s/s bleeding/clot. Psychotropic Medications: None Unnecessary Medications: None Bowel Regimen: 5) Senna/s, PEG, prn bisacodyl. Continue to monitor prn medication use, for constipation/diarrhea. Date of Note:: 02/06/18 - Provider Comments Provider responsibility: Provider responsible to enter orders to implement recommendations <Osvaldo Molina Chi - Last Filed: 02/06/18 18:00> Progress Note - Pharmacy Subjective: [] Objective: Allergies No Known Allergies Allergy (Verified 01/25/18 13:13) Current Medications Generic Name Dose Route Start Last Admin Trade Name Freq PRN Reason Stop Dose Admin Acetaminophen 1,000 mg 02/01/18 22:00 02/06/18 14:57 Tylenol PO 1,000 mg Q8 BHARATI Administration Bisacodyl 10 mg 02/01/18 23:16 Dulcolax PO DAILY PRN Constipation Heparin Sodium (Beef Lung) 50 units 02/01/18 23:45 IV UD PRN HEPARIN FLUSH Vancomycin HCl 1,500 mg/ 530 mls @ 250 mls/hr 02/02/18 00:00 02/06/18 15:46 Sodium Chloride IV 03/12/18 00:01 250 mls/hr Q8H BHARATI Administration Vancomycin IV Pharmacy to Dose 500 mls @ 250 mls/hr 02/01/18 17:54 1 ea/ Sodium Chloride IV PRN PRN Rx to Dose Protocol Sodium Chloride 250 mls @ 15 mls/hr 02/01/18 23:45 02/06/18 15:47 IV 15 mls/hr .[id number] PRN Administration SALINE FLUSH Lisinopril 10 mg 02/02/18 06:00 02/06/18 05:58 Zestril PO 10 mg DAILY BHARATI Administration Oxycodone HCl 5 - 10 mg 02/01/18 16:58 02/06/18 16:46 Oxyir PO 10 mg Q4H PRN PRN Administration MOD-SEVERE PAIN (4-10/10) Polyethylene Glycol 17 gm 02/02/18 06:00 02/06/18 05:58 Miralax PO Not Given DAILY BHARATI Polysaccharide Iron Complex 150 mg 02/03/18 08:00 02/06/18 09:40 Ferrex 150 PO 150 mg DAILYCM BHARATI Administration Rivaroxaban 10 mg 02/02/18 06:00 02/06/18 05:58 Xarelto PO 02/15/18 06:01 10 mg DAILY@0600 BHARATI Administration Senna/Docusate Sodium 2 tablet 02/01/18 18:30 02/06/18 15:51 Senokot-S, Silvia-Colace PO Not Given BID [facility] Sodium Chloride 10 - 20 ml 02/01/18 23:45 02/06/18 15:47 IV 20 ml UD PRN Administration PICC FLUSH Tuberculin PPD 5 tu 02/09/18 10:00 Tubersol, Aplisol, Ppd ID 02/09/18 10:01 X1 ONE Problem List Hypertension (Chronic) Osteoarthritis of knees, bilateral (Acute) Vital Signs Temp Pulse Resp BP Pulse Ox 96.3 F L 89 16 123/69 H 98 02/06/18 16:00 02/06/18 16:00 02/06/18 16:00 02/06/18 16:00 02/06/18 16:00 Oxygen Delivery Method Room Air Weight: 104.411 kg Body Mass Index (BMI) 37.3 Sodium 139 mmol/L (136-145) 02/02/18 05:55 Potassium 3.7 mmol/L (3.5-5.1) 02/02/18 05:55 Chloride 104 mmol/L (98-107) 02/02/18 05:55 Carbon Dioxide 28.0 mmol/L (21.0-32.0) 02/02/18 05:55 Anion Gap 7 (5-15) 02/02/18 05:55 BUN 8 mg/dL (7-18) 02/02/18 05:55 Creatinine 0.52 mg/dL (0.70-1.30) L 02/02/18 05:55 Est GFR (MDRD) Af Amer 215 mL/min (>60) 02/02/18 05:55 Est GFR (MDRD) Non-Af 177 mL/min (>60) 02/02/18 05:55 BUN/Creatinine Ratio 15.4 RATIO (10-20) 02/02/18 05:55 Glucose 97 mg/dL (74-106) 02/02/18 05:55 Vancomycin Trough 16.2 ug/mL (5.0-15.0) H 02/04/18 07:10 Assessment/Plan: Psychotropic Medications: Unnecessary Medications: Bowel Regimen: - Provider Comments Provider responsibility: Provider responsible to enter orders to implement recommendations Provider Comments to Recommendations by Pharmacy: Agree
--- NOTE | 2018-02-06 15:53 | PHA.CONS_ITS ---
<Yovanny Correa D - Last Filed: 02/06/18 15:32> Progress Note - Pharmacy Subjective: TCU Admission Objective: Allergies No Known Allergies Allergy (Verified 01/25/18 13:13) Current Medications Generic Name Dose Route Start Last Admin Trade Name Freq PRN Reason Stop Dose Admin Acetaminophen 1,000 mg 02/01/18 22:00 02/06/18 14:57 Tylenol PO 1,000 mg Q8 BHARATI Administration Bisacodyl 10 mg 02/01/18 23:16 Dulcolax PO DAILY PRN Constipation Heparin Sodium (Beef Lung) 50 units 02/01/18 23:45 IV UD PRN HEPARIN FLUSH Vancomycin HCl 1,500 mg/ 530 mls @ 250 mls/hr 02/02/18 00:00 02/06/18 09:40 Sodium Chloride IV 03/12/18 00:01 250 mls/hr Q8H BHARATI Administration Vancomycin IV Pharmacy to Dose 500 mls @ 250 mls/hr 02/01/18 17:54 1 ea/ Sodium Chloride IV PRN PRN Rx to Dose Protocol Sodium Chloride 250 mls @ 15 mls/hr 02/01/18 23:45 02/06/18 00:14 IV 15 mls/hr .[id number] PRN Administration SALINE FLUSH Lisinopril 10 mg 02/02/18 06:00 02/06/18 05:58 Zestril PO 10 mg DAILY BHARATI Administration Oxycodone HCl 5 - 10 mg 02/01/18 16:58 02/06/18 12:43 Oxyir PO 10 mg Q4H PRN PRN Administration MOD-SEVERE PAIN (4-10/10) Polyethylene Glycol 17 gm 02/02/18 06:00 02/06/18 05:58 Miralax PO Not Given DAILY [facility] Polysaccharide Iron Complex 150 mg 02/03/18 08:00 02/06/18 09:40 Ferrex 150 PO 150 mg DAILYCM [facility] Administration Rivaroxaban 10 mg 02/02/18 06:00 02/06/18 05:58 Xarelto PO 02/15/18 06:01 10 mg DAILY@0600 [facility] Administration Senna/Docusate Sodium 2 tablet 02/01/18 18:30 02/06/18 05:58 Senokot-S, Silvia-Colace PO Not Given BID BHARATI Sodium Chloride 10 - 20 ml 02/01/18 23:45 02/06/18 00:14 IV 20 ml UD PRN Administration PICC FLUSH Tuberculin PPD 5 tu 02/09/18 10:00 Tubersol, Aplisol, Ppd ID 02/09/18 10:01 X1 ONE Problem List Hypertension (Chronic) Osteoarthritis of knees, bilateral (Acute) Vital Signs Temp Pulse Resp BP Pulse Ox 96.3 F L 79 16 122/63 H 99 02/05/18 16:00 02/05/18 16:00 02/05/18 16:00 02/05/18 16:00 02/05/18 16:00 Oxygen Delivery Method Room Air Weight: 104.411 kg Body Mass Index (BMI) 37.3 Sodium 139 mmol/L (136-145) 02/02/18 05:55 Potassium 3.7 mmol/L (3.5-5.1) 02/02/18 05:55 Chloride 104 mmol/L (98-107) 02/02/18 05:55 Carbon Dioxide 28.0 mmol/L (21.0-32.0) 02/02/18 05:55 Anion Gap 7 (5-15) 02/02/18 05:55 BUN 8 mg/dL (7-18) 02/02/18 05:55 Creatinine 0.52 mg/dL (0.70-1.30) L 02/02/18 05:55 Est GFR (MDRD) Af Amer 215 mL/min (>60) 02/02/18 05:55 Est GFR (MDRD) Non-Af 177 mL/min (>60) 02/02/18 05:55 BUN/Creatinine Ratio 15.4 RATIO (10-20) 02/02/18 05:55 Glucose 97 mg/dL (74-106) 02/02/18 05:55 Vancomycin Trough 16.2 ug/mL (5.0-15.0) H 02/04/18 07:10 Assessment/Plan: 1) Pain APAP scheduled, oxycodone prn. Continue to monitor prn medication use, daily pain scores. 2) ID Vancomycin until 03/12. ID following, pharmacy adjusting dose as needed. Continue to monitor renal function, s/s infection. 3) HTN Lisinopril daily. Continue to monitor BP/HR, renal function, electrolytes. 4) DVT PPx Rivaroxaban daily. Continue to monitor s/s bleeding/clot. Psychotropic Medications: None Unnecessary Medications: None Bowel Regimen: 5) Senna/s, PEG, prn bisacodyl. Continue to monitor prn medication use, for constipation/diarrhea. Date of Note:: 02/06/18 - Provider Comments Provider responsibility: Provider responsible to enter orders to implement recommendations <Osvaldo Molina Chi - Last Filed: 02/06/18 18:00> Progress Note - Pharmacy Subjective: [] Objective: Allergies No Known Allergies Allergy (Verified 01/25/18 13:13) Current Medications Generic Name Dose Route Start Last Admin Trade Name Freq PRN Reason Stop Dose Admin Acetaminophen 1,000 mg 02/01/18 22:00 02/06/18 14:57 Tylenol PO 1,000 mg Q8 BHARATI Administration Bisacodyl 10 mg 02/01/18 23:16 Dulcolax PO DAILY PRN Constipation Heparin Sodium (Beef Lung) 50 units 02/01/18 23:45 IV UD PRN HEPARIN FLUSH Vancomycin HCl 1,500 mg/ 530 mls @ 250 mls/hr 02/02/18 00:00 02/06/18 15:46 Sodium Chloride IV 03/12/18 00:01 250 mls/hr Q8H BHARATI Administration Vancomycin IV Pharmacy to Dose 500 mls @ 250 mls/hr 02/01/18 17:54 1 ea/ Sodium Chloride IV PRN PRN Rx to Dose Protocol Sodium Chloride 250 mls @ 15 mls/hr 02/01/18 23:45 02/06/18 15:47 IV 15 mls/hr .[id number] PRN Administration SALINE FLUSH Lisinopril 10 mg 02/02/18 06:00 02/06/18 05:58 Zestril PO 10 mg DAILY BHARATI Administration Oxycodone HCl 5 - 10 mg 02/01/18 16:58 02/06/18 16:46 Oxyir PO 10 mg Q4H PRN PRN Administration MOD-SEVERE PAIN (4-10/10) Polyethylene Glycol 17 gm 02/02/18 06:00 02/06/18 05:58 Miralax PO Not Given DAILY BHARATI Polysaccharide Iron Complex 150 mg 02/03/18 08:00 02/06/18 09:40 Ferrex 150 PO 150 mg DAILYCM BHARATI Administration Rivaroxaban 10 mg 02/02/18 06:00 02/06/18 05:58 Xarelto PO 02/15/18 06:01 10 mg DAILY@0600 BHARATI Administration Senna/Docusate Sodium 2 tablet 02/01/18 18:30 02/06/18 15:51 Senokot-S, Silvia-Colace PO Not Given BID [facility] Sodium Chloride 10 - 20 ml 02/01/18 23:45 02/06/18 15:47 IV 20 ml UD PRN Administration PICC FLUSH Tuberculin PPD 5 tu 02/09/18 10:00 Tubersol, Aplisol, Ppd ID 02/09/18 10:01 X1 ONE Problem List Hypertension (Chronic) Osteoarthritis of knees, bilateral (Acute) Vital Signs Temp Pulse Resp BP Pulse Ox 96.3 F L 89 16 123/69 H 98 02/06/18 16:00 02/06/18 16:00 02/06/18 16:00 02/06/18 16:00 02/06/18 16:00 Oxygen Delivery Method Room Air Weight: 104.411 kg Body Mass Index (BMI) 37.3 Sodium 139 mmol/L (136-145) 02/02/18 05:55 Potassium 3.7 mmol/L (3.5-5.1) 02/02/18 05:55 Chloride 104 mmol/L (98-107) 02/02/18 05:55 Carbon Dioxide 28.0 mmol/L (21.0-32.0) 02/02/18 05:55 Anion Gap 7 (5-15) 02/02/18 05:55 BUN 8 mg/dL (7-18) 02/02/18 05:55 Creatinine 0.52 mg/dL (0.70-1.30) L 02/02/18 05:55 Est GFR (MDRD) Af Amer 215 mL/min (>60) 02/02/18 05:55 Est GFR (MDRD) Non-Af 177 mL/min (>60) 02/02/18 05:55 BUN/Creatinine Ratio 15.4 RATIO (10-20) 02/02/18 05:55 Glucose 97 mg/dL (74-106) 02/02/18 05:55 Vancomycin Trough 16.2 ug/mL (5.0-15.0) H 02/04/18 07:10 Assessment/Plan: Psychotropic Medications: Unnecessary Medications: Bowel Regimen: - Provider Comments Provider responsibility: Provider responsible to enter orders to implement recommendations Provider Comments to Recommendations by Pharmacy: Agree
[2018-02-06 16:00] VITALS: BP 123/69; PULSE 89; RESP 16; TEMP 35.7; O2SAT 98
--- NOTE | 2018-02-06 16:30 | CASEMGMT ---
Insurance Continued stay approved with next update due on 02/13/18. Auth#[id number] RJ Vernon, EDUCATIONAL RECRUITER
[2018-02-06] MEDS: NYSTATIN 500,000 UNIT/5 ML UDC 500000 UNIT PO (22:04)
[2018-02-07 05:41] VITALS: BP 121/73; PULSE 81; RESP 16; TEMP 36.7; O2SAT 100
[2018-02-07] MEDS: Acetaminophen 500 MG Tablet 1000 MG PO ×3 (05:42→22:20)
[2018-02-07] MEDS: Rivaroxaban 10 MG Tablet PO (05:42)
[2018-02-07] MEDS: Lisinopril 10 MG Tablet PO (05:43)
[2018-02-07] MEDS: Senna/Docusate Sodium 1 Tablet 2 TABLET PO ×2 (05:43→17:16)
[2018-02-07] MEDS: NYSTATIN 500,000 UNIT/5 ML UDC 500000 UNIT PO ×4 (05:44→22:20)
[2018-02-07] MEDS: Iron Polysaccharide Complex 150 MG CAPSULE PO (08:56)
[2018-02-07] MEDS: 0.9% NaCl IVPB Med Flush (250 mL) 15 ML IV (08:57)
[2018-02-07] MEDS: oxyCODONE 5 MG Tablet PO ×3 (11:55→22:26)
[2018-02-07 15:21] VITALS: BP 129/62; PULSE 71; RESP 16; TEMP 35.1; O2SAT 99
[2018-02-07] MEDS: 0.9% NaCl PICC Flush IV ×2 (15:35→22:20)
[2018-02-08] MEDS: Acetaminophen 500 MG Tablet 1000 MG PO ×3 (05:05→23:13)
[2018-02-08] MEDS: Rivaroxaban 10 MG Tablet PO (05:05)
[2018-02-08] MEDS: NYSTATIN 500,000 UNIT/5 ML UDC 500000 UNIT PO ×4 (05:05→21:53)
[2018-02-08] MEDS: Lisinopril 10 MG Tablet PO (05:05)
[2018-02-08] MEDS: 0.9% NaCl PICC Flush IV ×3 (08:28→23:38)
[2018-02-08] MEDS: 0.9% NaCl IVPB Med Flush (250 mL) 15 ML IV (08:28)
[2018-02-08] MEDS: oxyCODONE 5 MG Tablet PO ×4 (08:30→21:52)
[2018-02-08] MEDS: Iron Polysaccharide Complex 150 MG CAPSULE PO (08:31)
--- NOTE | 2018-02-08 13:41 | CASEMGMT ---
Brief interview for mental status (BIMS) and mood (PHQ-9) completed on this day. BIMS score 15/15. PHQ-9 score 05/29. Shahla Goins social work student
--- NOTE | 2018-02-08 14:06 | CASEMGMT ---
GISELA student charting reviewed. RJ Veras
[2018-02-08 16:00] VITALS: BP 114/54; PULSE 73; RESP 18; TEMP 36.6; O2SAT 97
[2018-02-09] MEDS: NYSTATIN 500,000 UNIT/5 ML UDC 500000 UNIT PO ×4 (05:45→21:04)
[2018-02-09] MEDS: Acetaminophen 500 MG Tablet 1000 MG PO ×3 (05:46→21:04)
[2018-02-09] MEDS: oxyCODONE 5 MG Tablet PO ×4 (05:49→21:05)
[2018-02-09] MEDS: Lisinopril 10 MG Tablet PO (05:50)
[2018-02-09] MEDS: Rivaroxaban 10 MG Tablet PO (05:50)
[2018-02-09 06:18] LABS: Absolute Neutrophil Count 3.8 X10^3/uL (2.0-7.7); Basophil# 0.02 X10^3/uL; Basophil% 0.3 % (0-1); Eosinophil# 0.25 X10^3/uL; Eosinophils% 4.1 % (0-5); Hematocrit 28.9 % (40-54); Hemoglobin 9.4 g/dl (13.0-16.5); Mean Corp Hgb Conc 32.5 g/gl (32-36); Mean Corpuscular Hgb 27.8 pg (27.0-32.0); Mean Corpuscular Volume 85.5 fL (80-94); Mean Platelet Vol. 9.2 fl (6.2-12.0); Monocyte# 0.58 X10^3/uL; Monocyte% 9.5 % (0-10); Neutrophil # 3.79 X10^3/uL (2.7-7.7); Neutrophil % 62.4 % (47-70); Platelet Count 316 K/mm3 (150-450); RBC Distribution Width SD 38.8 fl (35.1-43.9); Red Blood Count 3.38 M/mm3 (4.6-6.2); White Blood Count 6.1 K/mm3 (4.4-11.0)
[2018-02-09 06:19] LABS: POSITIVE COUNT NO; POSITIVE DIFFERENTIAL NO; POSITIVE MORPHOLOGY NO
[2018-02-09 06:24] LABS: Erythrocyte Sedimentation Rate 74 mm/hr (0-20)
[2018-02-09 06:33] LABS: Anion Gap 7 (5-15); BUN 16 mg/dL (7-18); BUN/Creat Ratio 26.2 RATIO (10-20); Calcium,Total 8.5 mg/dL (8.5-10.1); Chloride 101 mmol/L (98-107); Creatinine, Serum 0.61 mg/dL (0.70-1.30); EST Glomerular Filtration Rate 147 mL/min (>60); Est Glom Filt Rate - Afr Amer 178 mL/min (>60); Estimated Creatinine Clearance 126.38 ml/min; Glucose 94 mg/dL (74-106); Potassium 4.1 mmol/L (3.5-5.1); Sodium Level 136 mmol/L (136-145)
[2018-02-09] MEDS: Iron Polysaccharide Complex 150 MG CAPSULE PO (08:29)
[2018-02-09] MEDS: Hydrocortisone 2.5% Crm 1 APPLIC TOPICAL (08:29)
--- NOTE | 2018-02-09 08:54 | NURSING ---
Dressing changed per order. Patient tolerated well. Incision well approximated with mild PEDIGREE TRACER edema, no redness, warmth or drainage.
[2018-02-09] MEDS: Tuberculin,Purif.prot.deriv. 50 TU/ML Vial 5 ML ID (11:04)
[2018-02-09] MEDS: 0.9% NaCl PICC Flush IV ×2 (11:05→15:20)
[2018-02-09] MEDS: 0.9% NaCl IVPB Med Flush (250 mL) 15 ML IV (15:20)
[2018-02-09 16:00] VITALS: BP 118/60; PULSE 70; RESP 18; TEMP 36.9; O2SAT 99
[2018-02-10] MEDS: 0.9% NaCl PICC Flush IV ×3 (00:11→16:51)
[2018-02-10] MEDS: NYSTATIN 500,000 UNIT/5 ML UDC 500000 UNIT PO ×4 (05:47→20:48)
[2018-02-10] MEDS: Lisinopril 10 MG Tablet PO (05:47)
[2018-02-10] MEDS: Rivaroxaban 10 MG Tablet PO (05:47)
[2018-02-10] MEDS: Acetaminophen 500 MG Tablet 1000 MG PO ×3 (05:47→20:47)
[2018-02-10] MEDS: Iron Polysaccharide Complex 150 MG CAPSULE PO (08:38)
[2018-02-10] MEDS: oxyCODONE 5 MG Tablet PO ×2 (14:24→18:42)
[2018-02-10 14:30] VITALS: RESP 18
[2018-02-10 15:40] VITALS: BP 119/66; PULSE 68; RESP 16; TEMP 36.6; O2SAT 98
[2018-02-11] MEDS: oxyCODONE 5 MG Tablet PO ×4 (00:23→15:41)
[2018-02-11] MEDS: 0.9% NaCl IVPB Med Flush (250 mL) 15 ML IV (00:23)
[2018-02-11] MEDS: 0.9% NaCl PICC Flush IV ×2 (00:23→15:38)
[2018-02-11] MEDS: NYSTATIN 500,000 UNIT/5 ML UDC 500000 UNIT PO ×4 (06:56→21:06)
[2018-02-11] MEDS: Acetaminophen 500 MG Tablet 1000 MG PO ×3 (06:56→21:06)
[2018-02-11] MEDS: Lisinopril 10 MG Tablet PO (06:57)
[2018-02-11] MEDS: Rivaroxaban 10 MG Tablet PO (06:57)
[2018-02-11 08:16] LABS: Vancomycin, Trough Level 22.7 ug/mL (5.0-15.0)
[2018-02-11] MEDS: Iron Polysaccharide Complex 150 MG CAPSULE PO (08:36)
--- NOTE | 2018-02-11 11:40 | NURSING ---
Sister is here to take resident to ortho appointment. Premedicated before he leaves for his appointment.
--- NOTE | 2018-02-11 14:00 | PCM.PN.ID ---
Patient Problems: Active and Suspected Problems Osteoarthritis of knees, bilateral (Acute) - Physical Exam Vital Signs Temp Pulse Resp BP Pulse Ox 97.8 F 68 16 119/66 98 02/10/18 15:40 02/10/18 15:40 02/10/18 15:40 02/10/18 15:40 02/10/18 15:40 Oxygen Delivery Method Room Air Weight: 104.411 kg Body Mass Index (BMI) 37.3 Intake and Output for Last 24 Hours 02/09/18 02/10/18 02/11/18 23:59 23:59 23:59 Intake Total 1020 / 1020 1460 / 1460 400 / 400 Output Total 300 / 300 400 / 400 Balance 720 / 720 1060 / 1060 400 / 400 Laboratory Tests Past 24 Hrs 02/11/18 07:15 Vancomycin Trough 22.7 H Medical Necessity - Tobacco Use Smoking Status: Former smoker Tobacco Use: Non-smoker Route of nutrition/ use of supplements: [] Nutritional Intake: [] IV Site: [] Zuniga Catheter: [] - Assessment/Plan Antibiotics: [] Assessment/Plan: [] Active and Suspected Problems Osteoarthritis of knees, bilateral (Acute) 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 Callaway. Surg cx with staph lugdunensis. On iv vanc. Plan for 6 weeks of abx, stop date 03/12/18. Weekly bmp, cbc, vanc trough, and esr while on iv abx. ESR improving. Vanc trough was high and had been receiving q8h. Has completed 2 weeks of iv abx. Ok to switch to po linezolid. Spoke with micro lab and release bactrim susceptibilities, so this would be another po option with good joint penetration. Will follow
[2018-02-11 15:46] VITALS: BP 123/61; PULSE 75; RESP 16; TEMP 35.7; O2SAT 100
[2018-02-11] MEDS: Aspirin 81 MG TAB.CHEW PO (18:02)
[2018-02-11] MEDS: Linezolid 600 MG Tablet PO (18:03)
[2018-02-12] MEDS: oxyCODONE 5 MG Tablet PO ×4 (06:06→18:48)
[2018-02-12] MEDS: NYSTATIN 500,000 UNIT/5 ML UDC 500000 UNIT PO ×4 (06:06→20:31)
[2018-02-12] MEDS: Acetaminophen 500 MG Tablet 1000 MG PO ×3 (06:06→21:47)
[2018-02-12] MEDS: Lisinopril 10 MG Tablet PO (06:07)
[2018-02-12] MEDS: Linezolid 600 MG Tablet PO ×2 (06:07→16:57)
[2018-02-12] MEDS: 0.9% NaCl PICC Flush IV (08:21)
[2018-02-12] MEDS: Iron Polysaccharide Complex 150 MG CAPSULE PO (08:21)
[2018-02-12] MEDS: Aspirin 81 MG TAB.CHEW PO ×2 (08:21→16:56)
--- NOTE | 2018-02-12 10:37 | PCM.PN.ID ---
Patient Problems: Active and Suspected Problems Osteoarthritis of knees, bilateral (Acute) Subjective: Sutures removed and out of brace. Knee a little sore, no drainage, no fever. - Physical Exam General: Alert, Cooperative, No apparent distress Lungs: Clear to auscultation, Normal air movement Cardiovascular: Regular rate, Regular Rhythm Abdomen: Soft, Non Tender, Non-Distended Skin: No rashes, Incision - R knee well healed Vital Signs Temp Pulse Resp BP Pulse Ox 96.2 F L 75 16 123/61 H 100 02/11/18 15:46 02/11/18 15:46 02/11/18 15:46 02/11/18 15:46 02/11/18 15:46 Oxygen Delivery Method Room Air Weight: 104.411 kg Body Mass Index (BMI) 37.3 Intake and Output for Last 24 Hours 02/10/18 02/11/18 02/12/18 23:59 23:59 23:59 Intake Total 1460 / 1460 760 / 760 320 / 320 Output Total 400 / 400 Balance 1060 / 1060 760 / 760 320 / 320 Medical Necessity - Tobacco Use Smoking Status: Former smoker Tobacco Use: Non-smoker Route of nutrition/ use of supplements: [] Nutritional Intake: [] IV Site: [] Zuniga Catheter: [] - Assessment/Plan Antibiotics: [] Assessment/Plan: [] Active and Suspected Problems Osteoarthritis of knees, bilateral (Acute) 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 Callaway. Surg cx with staph lugdunensis. Was on iv vanc. Plan for 6 weeks of abx, stop date 03/12/18. Weekly bmp, cbc, and esr while on abx. ESR improving. Vanc trough was high and had been receiving q8h. Has completed 2 weeks of iv abx. 02/11 switched to po linezolid. Spoke with micro lab and released bactrim susceptibilities, so this would be another po option with good joint penetration. Will follow
[2018-02-12 16:00] VITALS: BP 124/68; PULSE 67; RESP 16; TEMP 35.2; O2SAT 97
[2018-02-13] MEDS: oxyCODONE 5 MG Tablet PO ×3 (02:44→14:56)
[2018-02-13] MEDS: Acetaminophen 500 MG Tablet 1000 MG PO ×3 (06:45→20:59)
[2018-02-13] MEDS: NYSTATIN 500,000 UNIT/5 ML UDC 500000 UNIT PO ×4 (06:45→20:58)
[2018-02-13] MEDS: Lisinopril 10 MG Tablet PO (06:45)
[2018-02-13] MEDS: Linezolid 600 MG Tablet PO ×2 (06:45→16:53)
[2018-02-13] MEDS: 0.9% NaCl PICC Flush IV ×2 (06:45→09:19)
[2018-02-13] MEDS: Iron Polysaccharide Complex 150 MG CAPSULE PO (08:05)
[2018-02-13] MEDS: Aspirin 81 MG TAB.CHEW PO ×2 (08:05→16:52)
--- NOTE | 2018-02-13 11:34 | CASEMGMT ---
Insurance Clinical information faxed. Pending continued stay approval at this time. Auth#[id number] RJ Vernon, MIXER OPERATOR VACUUM PAN SALT
--- NOTE | 2018-02-13 13:03 | CASEMGMT ---
Brief interview for mental status (BIMS) and resident mood interview (PHQ-9) completed on this day. BIMS score 15/15. PHQ-9 score
--- NOTE | 2018-02-13 13:04 | CASEMGMT ---
Insurance Continued stay denied with last cover day being 02/15/18 and resident to discharge or financial responsibility to begin on 02/16/18. Auth#[id number] RJ Vernon, WASTEWATER PROJECT MANAGER
--- NOTE | 2018-02-13 13:05 | CASEMGMT ---
Social Work Spoke with resident in room. This social service assistant communicating that continued stay has been denied with last cover day being 02/15/18 and resident to discharge or financial responsibility to begin on 02/16/18. Resident planning to discharge on 02/16/18 to home alone. Resident reporting to have needed durable medical equipment already set up within the home. This social service assistant communicating that physical therapy is recommending for resident to continue with outpatient physical therapy. Resident is agreeable to recommendation and requesting for outpatient therapy to be set up through [facility]. Resident aware that order will be faxed to [facility] and then [facility] will contact resident to set up appointment. Resident reporting to be able to notify resident family in regards to discharge date/plan. Resident brother to provide transportation home for resident at time of discharge. Resident voicing no further needs at this time. Support given. Will fax order to [facility] when obtained. Proposed discharge date: 02/16/18 PLAN: Discharge to home alone with outpatient physical therapy. ABIODUN VernonW, CLOTH BOIL OFF MACHINE OPERATOR
[2018-02-13 16:00] VITALS: BP 131/76; PULSE 72; RESP 16; TEMP 36; O2SAT 99
--- NOTE | 2018-02-13 21:33 | DCINST_ITS ---
- Discharge Diagnoses Current Active Problems: Current Active and Chronic Problems Hypertension (Chronic) Osteoarthritis of knees, bilateral (Acute) You will use the following diet at home:: No restrictions, Regular Your food should be the consistency of: Regular Your liquids should be the consistency of: Regular/Thin Discharge Activity: Return to Normal Activity, May Shower, Use Walker Weight Bearing Status: Weight bearing as tolerated Call your doctor if you observe: Fever of 101 or Higher, Inability to urinate, Inability to have a bowel movement, Shortness of breath, Chest pain, Uncon trolled pain Allergies/Adverse Reactions: Allergies No Known Allergies Allergy (Verified 01/25/18 13:13) Medications to take at Discharge Lisinopril [Prinivil] 10 mg PO DAILY 12/25/16 Acetaminophen [Tylenol] 1,000 mg PO Q8 02/01/18 Aspirin [Aspirin, Baby] 81 mg PO BIDCM tab.chew 02/13/18 Iron Polysaccharide Complex [Ferrex 150] 150 mg PO DAILYCM #30 capsule 02/13/18 Linezolid [Zyvox] 600 mg PO BID #60 tablet 02/13/18 Nystatin 500,000 unit PO 4X/DAY udc 02/13/18 Oxycodone [Oxyir] 5 - 10 mg PO Q4H PRN PRN 5 Days #30 tab 02/13/18 Polyethylene Glycol 3350 [Miralax] 17 gm PO DAILY #30 packet 02/13/18 The following prescriptions were given: Oxycodone [Oxyir] 5 - 10 mg PO Q4H PRN PRN 5 Days #30 tab PRN Reason: Mod-Severe Pain (-01/09) Iron Polysaccharide Complex [Ferrex 150] 150 mg PO DAILYCM #30 capsule Polyethylene Glycol 3350 [Miralax] 17 gm PO DAILY #30 packet Linezolid [Zyvox] 600 mg PO BID #60 tablet Primary Care Physician: Eladia Davies DO [Primary Care Provider] - Please follow up with your Primary Care Physician in: 1 week. Test Results: Test results from this visit will be discussed in further detail at your follow- up appointment, if applicable. Please Follow Up With: AZRA Davila When: 02/11/18 Please Follow Up With: Jaguar Neumann MD When: 2 weeks. Proposed Discharge Date: 02/16/18
--- NOTE | 2018-02-13 21:33 | PCM.DC.SUM ---
Discharge Date and Diagnosis - Problem List Patient Problems: Active and Suspected Problems Osteoarthritis of knees, bilateral (Acute) Date of Admission: 02/01/18 Date of Discharge: 02/16/18 - Primary Discharge Diagnosis Active and Suspected Problems Osteoarthritis of knees, bilateral (Acute) - Secondary Discharge Diagnosis Chronic Problems Hypertension (Chronic) Hospital Course and Treatment Imaging Results: 02/06/18 13:45 Diet: Cardiac/Low Cholesterol Is pt able to select menu?: Yes Operations: None Procedures: None Summary of Care Provided: The patient is a 52 year old Male with below past medical history hospitalized for infected right prosthetic knee, underwent explant right total knee with placement of antibiotic spacer 01/29/[address] Callaway, admitted to TCU with debility, here for rehabilitation, strengthening, intravenous antibiotics, prior to discharge home with spouse. Will need further right knee surgery with Dr. Callaway in near future. Culture grew staph lugdunensis, Dr. Neumann recommend IV Vancomycin, transitioned to PO Linezolid. Discharge home alone, with outpatient physical therapy. Patient Problems: Active and Suspected Problems Osteoarthritis of knees, bilateral (Acute) - Physical Exam Vital Signs Temp Pulse Resp BP Pulse Ox 96.8 F L 72 16 131/76 H 99 02/13/18 16:00 02/13/18 16:00 02/13/18 16:00 02/13/18 16:00 02/13/18 16:00 Oxygen Delivery Method Room Air Weight: 103.107 kg Body Mass Index (BMI) 37.3 Intake and Output for Last 24 Hours 02/11/18 02/12/18 02/13/18 23:59 23:59 23:59 Intake Total 760 / 760 680 / 680 840 / 840 Balance 760 / 760 680 / 680 840 / 840 Discharge Diet: No Restrictions Discharge Activity: Return to Normal Activity, May Shower, Use Walker Weight Bearing Status: Weight bearing as tolerated Call your doctor if you observe: Fever of 101 or Higher, Inability to urinate, Inability to have a bowel movement, Shortness of breath, Chest pain, Uncontrolled pain Home Medications: Medications to take at Discharge Lisinopril [Prinivil] 10 mg PO DAILY 12/25/16 Acetaminophen [Tylenol] 1,000 mg PO Q8 02/01/18 Aspirin [Aspirin, Baby] 81 mg PO BIDCM tab.chew 02/13/18 Iron Polysaccharide Complex [Ferrex 150] 150 mg PO DAILYCM #30 capsule 02/13/18 Linezolid [Zyvox] 600 mg PO BID #60 tablet 02/13/18 Nystatin 500,000 unit PO 4X/DAY udc 02/13/18 Oxycodone [Oxyir] 5 - 10 mg PO Q4H PRN PRN 5 Days #30 tab 02/13/18 Polyethylene Glycol 3350 [Miralax] 17 gm PO DAILY #30 packet 02/13/18 Following Prescrptions Were Given to Patient: Oxycodone [Oxyir] 5 - 10 mg PO Q4H PRN PRN 5 Days #30 tab PRN Reason: Mod-Severe Pain (-01/09) Iron Polysaccharide Complex [Ferrex 150] 150 mg PO DAILYCM #30 capsule Polyethylene Glycol 3350 [Miralax] 17 gm PO DAILY #30 packet Linezolid [Zyvox] 600 mg PO BID #60 tablet Primary Care Physician: Eladia Davies DO [Primary Care Provider] - Please follow up with your Primary Care Physician in: 1 week. Please Follow Up With: AZRA Davila When: 02/11/18 Please Follow Up With: Jaguar Neumann MD When: 2 weeks. Disposition: Home Minutes spent on discharge:: 30 Patient Condition:: Stable Medical Necessity - Tobacco Use Smoking Status: Former smoker Tobacco Use: Non-smoker Meaningful Use Info Meaningful Use Diagnoses (Choose all that apply): None applicable
[2018-02-14] MEDS: oxyCODONE 5 MG Tablet PO ×5 (01:04→21:02)
[2018-02-14] MEDS: 0.9% NaCl PICC Flush IV (01:05)
[2018-02-14] MEDS: Acetaminophen 500 MG Tablet 1000 MG PO ×3 (06:13→21:13)
[2018-02-14] MEDS: Linezolid 600 MG Tablet PO ×2 (06:13→17:18)
[2018-02-14] MEDS: Lisinopril 10 MG Tablet PO (06:13)
[2018-02-14] MEDS: Iron Polysaccharide Complex 150 MG CAPSULE PO (08:03)
[2018-02-14] MEDS: Aspirin 81 MG TAB.CHEW PO ×2 (08:03→17:18)
--- NOTE | 2018-02-14 08:42 | NURSING ---
Pt to discharge from TCU 02/16. Dr Jesse zarco N.O. to D/C PICC 02/16.
--- NOTE | 2018-02-14 10:39 | NURSING ---
PICC d/c'd per order. Patient tolerated well. Occlusive dressing applied, patient instructed to staying laying in bed for 30 minutes. catheter tip intact, 44cm length.
--- NOTE | 2018-02-14 10:43 | PCM.PN.ID ---
Patient Problems: Active and Suspected Problems Osteoarthritis of knees, bilateral (Acute) Subjective: Feeling well, no drainage from knee, no fever, no n/v/d - Physical Exam General: Alert, Cooperative, No apparent distress Lungs: Clear to auscultation, Normal air movement Cardiovascular: Regular rate, Regular Rhythm Abdomen: Soft, Non Tender, Non-Distended Skin: Incision - healing well R knee Vital Signs Temp Pulse Resp BP Pulse Ox 96.8 F L 72 16 131/76 H 99 02/13/18 16:00 02/13/18 16:00 02/13/18 16:00 02/13/18 16:00 02/13/18 16:00 Oxygen Delivery Method Room Air Weight: 103.107 kg Body Mass Index (BMI) 37.3 Intake and Output for Last 24 Hours 02/12/18 02/13/18 02/14/18 23:59 23:59 23:59 Intake Total 680 / 680 840 / 840 360 / 360 Balance 680 / 680 840 / 840 360 / 360 Medical Necessity - Tobacco Use Smoking Status: Former smoker Tobacco Use: Non-smoker Route of nutrition/ use of supplements: [] Nutritional Intake: [] IV Site: [] Zuniga Catheter: [] - Assessment/Plan Antibiotics: [] Assessment/Plan: [] Active and Suspected Problems Osteoarthritis of knees, bilateral (Acute) 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 Callaway. Surg cx with staph lugdunensis. Was on iv vanc. Plan for 6 weeks of abx, stop date 03/12/18. Weekly bmp, cbc, and esr while on abx. ESR improving. Vanc trough was high and had been receiving q8h. Has completed 2 weeks of iv abx. 02/11 switched to po linezolid. Spoke with micro lab and released bactrim susceptibilities, so this would be another po option with good joint penetration. Ok for d/c home on po linezolid, wrote rx for weekly labs and put in chart. ID followup with me prior to stop date 03/12. Will follow
--- NOTE | 2018-02-14 13:32 | MDS.RN ---
Information for the mds was obtained from review of the clinical record, interview of resident, staff, and direct observation of resident's care.
--- NOTE | 2018-02-14 14:30 | MDS.RN ---
Pain interview for pardeep 02/16/18 completed.
[2018-02-14 15:00] VITALS: BP 122/66; PULSE 68; RESP 16; TEMP 36.6; O2SAT 100
[2018-02-15] MEDS: oxyCODONE 5 MG Tablet PO ×4 (04:43→21:41)
[2018-02-15] MEDS: Acetaminophen 500 MG Tablet 1000 MG PO ×3 (04:43→21:41)
[2018-02-15] MEDS: Linezolid 600 MG Tablet PO ×2 (04:44→17:00)
[2018-02-15] MEDS: Lisinopril 10 MG Tablet PO (04:44)
[2018-02-15] MEDS: Iron Polysaccharide Complex 150 MG CAPSULE PO (08:28)
[2018-02-15] MEDS: Aspirin 81 MG TAB.CHEW PO ×2 (08:28→17:00)
[2018-02-15 15:58] VITALS: BP 126/64; PULSE 73; RESP 16; TEMP 35.9; O2SAT 98
[2018-02-16] MEDS: Acetaminophen 500 MG Tablet 1000 MG PO (05:26)
[2018-02-16] MEDS: Linezolid 600 MG Tablet PO (05:26)
[2018-02-16] MEDS: Lisinopril 10 MG Tablet PO (05:26)
[2018-02-16] MEDS: oxyCODONE 5 MG Tablet PO (05:26)
[2018-02-16 07:16] LABS: Absolute Lymphocyte Count 2.32 X10^3/ul (0.83-4.51); Basophil# 0.02 X10^3/uL; Basophil% 0.3 % (0-1); Eosinophil# 0.28 X10^3/uL; Eosinophils% 4.4 % (0-5); Hemoglobin 11.2 g/dl (13.0-16.5); Lymphocyte # 2.32 X10^3/ul (4.0); Lymphocyte % 36.4 % (19-41); Mean Corp Hgb Conc 31.1 g/gl (32-36); Mean Corpuscular Hgb 26.8 pg (27.0-32.0); Mean Corpuscular Volume 86.1 fL (80-94); Mean Platelet Vol. 9.1 fl (6.2-12.0); Monocyte# 0.73 X10^3/uL; Monocyte% 11.5 % (0-10); Neutrophil % 47.1 % (47-70); Platelet Count 363 K/mm3 (150-450); RBC Distribution Width CV 13.6 % (11.6-14.6); RBC Distribution Width SD 42.5 fl (35.1-43.9); Red Blood Count 4.18 M/mm3 (4.6-6.2); White Blood Count 6.4 K/mm3 (4.4-11.0)
[2018-02-16 07:24] LABS: POSITIVE COUNT NO; POSITIVE DIFFERENTIAL NO; POSITIVE MORPHOLOGY NO
[2018-02-16 07:30] LABS: Anion Gap 7 (5-15); BUN 14 mg/dL (7-18); BUN/Creat Ratio 15.7 RATIO (10-20); Calcium,Total 8.8 mg/dL (8.5-10.1); Chloride 99 mmol/L (98-107); Creatinine, Serum 0.89 mg/dL (0.70-1.30); EST Glomerular Filtration Rate 95 mL/min (>60); Est Glom Filt Rate - Afr Amer 115 mL/min (>60); Estimated Creatinine Clearance 86.62 ml/min; Glucose 102 mg/dL (74-106); Sodium Level 133 mmol/L (136-145)
[2018-02-16 07:48] LABS: Erythrocyte Sedimentation Rate 47 mm/hr (0-20)
[2018-02-16] MEDS: Iron Polysaccharide Complex 150 MG CAPSULE PO (08:12)
[2018-02-16] MEDS: Aspirin 81 MG TAB.CHEW PO (08:13)
[2018-02-16 08:50] VITALS: BP 123/63; PULSE 71; RESP 16; TEMP 36.2; O2SAT 99
[2018-02-16 09:07] VITALS: PULSE 78; RESP 16; O2SAT 99
--- NOTE | 2018-02-18 13:47 | CASEMGMT ---
Insurance Notified insurance of resident discharge on 02/16/18 to home with outpatient physical therapy. Auth#[id number] RJ Vernon, SEWING DEPARTMENT SUPERVISOR
[2018-02-23 06:50] LABS: Hematocrit 41.6 % (40-54); Hemoglobin 13.8 g/dl (13.0-16.5); Mean Corp Hgb Conc 33.2 g/gl (32-36); Mean Corpuscular Hgb 30.7 pg (27.0-32.0); Mean Corpuscular Volume 92.7 fL (80-94); RBC Distribution Width CV 13.5 % (11.6-14.6); Red Blood Count 4.49 M/mm3 (4.6-6.2); White Blood Count 5.4 K/mm3 (4.4-11.0)
[2018-02-23 06:51] LABS: Absolute Lymphocyte Count 1.32 X10^3/ul (0.83-4.51); Basophil# 0.04 X10^3/uL; Basophil% 0.7 % (0-1); Eosinophil# 0.17 X10^3/uL; Eosinophils% 3.1 % (0-5); Lymphocyte # 1.32 X10^3/ul (4.0); Lymphocyte % 24.3 % (19-41); Mean Platelet Vol. 9.3 fl (6.2-12.0); Monocyte% 16.6 % (0-10); Neutrophil # 2.99 X10^3/uL (2.7-7.7); Neutrophil % 55.1 % (47-70); POSITIVE COUNT NO; POSITIVE DIFFERENTIAL NO; POSITIVE MORPHOLOGY NO; Platelet Count 113 K/mm3 (150-450); RBC Distribution Width SD 45.5 fl (35.1-43.9)
[2018-02-23 07:08] LABS: Erythrocyte Sedimentation Rate 6 mm/hr (0-20)
[2018-02-23 07:20] LABS: Anion Gap 10 (5-15); BUN 17 mg/dL (7-18); BUN/Creat Ratio 17.2 RATIO (10-20); Calcium,Total 8.5 mg/dL (8.5-10.1); Chloride 104 mmol/L (98-107); Creatinine, Serum 0.99 mg/dL (0.70-1.30); EST Glomerular Filtration Rate 84 mL/min (>60); Est Glom Filt Rate - Afr Amer 102 mL/min (>60); Estimated Creatinine Clearance 77.87 ml/min; Glucose 121 mg/dL (74-106); Potassium 4.3 mmol/L (3.5-5.1); Sodium Level 138 mmol/L (136-145)
== END 2018-02-16 09:30 | disposition home or self-care (01) | DRG 950 ==
PROVIDERS: Internal Medicine Infectious Disease; Admitting Provider Family Medicine Geriatric Medicine; Referring Provider Family Medicine Geriatric Medicine; Visit Provider Family Medicine Geriatric Medicine
DX: T84.53XD Infection and inflammatory reaction due to internal right knee prosthesis, subsequent encounter (principal); Y79.2 Prosthetic and other implants, materials and accessory orthopedic devices associated with adverse incidents; I10 Essential (primary) hypertension; Z87.891 Personal history of nicotine dependence; M17.0 Bilateral primary osteoarthritis of knee; B95.7 Other staphylococcus as the cause of diseases classified elsewhere
CPT/HCPCS: 36415; 80048; 80202; 85025; 85652; 97110; 97116; 97162; 97166; 97530; 97535; 97802; J7040; J7050; A4216

== ENCOUNTER 2018-02-26 10:12 | Outpatient (RCR) | payer BC, SELFPAY ==
[2018-02-26 11:06] LABS: Basophil% 0.1 % (0-1); Eosinophils% 3.2 % (0-5); Hematocrit 36.8 % (40-54); Hemoglobin 12.1 g/dl (13.0-16.5); Lymphocyte % 34.1 % (19-41); Mean Corp Hgb Conc 32.9 g/gl (32-36); Mean Corpuscular Hgb 27.5 pg (27.0-32.0); Mean Corpuscular Volume 83.6 fL (80-94); Mean Platelet Vol. 9.3 fl (6.2-12.0); Monocyte% 8.4 % (0-10); Neutrophil % 54.1 % (47-70); POSITIVE COUNT NO; POSITIVE DIFFERENTIAL NO; POSITIVE MORPHOLOGY NO; Platelet Count 227 K/mm3 (150-450); RBC Distribution Width CV 13.9 % (11.6-14.6); RBC Distribution Width SD 41.7 fl (35.1-43.9); White Blood Count 7.2 K/mm3 (4.4-11.0)
[2018-02-26 11:07] LABS: Absolute Lymphocyte Count 2.47 X10^3/ul (0.83-4.51); Absolute Neutrophil Count 3.9 X10^3/uL (2.0-7.7); Basophil# 0.01 X10^3/uL; Eosinophil# 0.23 X10^3/uL; Erythrocyte Sedimentation Rate 13 mm/hr (0-20); Lymphocyte # 2.47 X10^3/ul (4.0); Monocyte# 0.61 X10^3/uL; Neutrophil # 3.91 X10^3/uL (2.7-7.7)
[2018-02-26 11:24] LABS: Anion Gap 8 (5-15); BUN 21 mg/dL (7-18); BUN/Creat Ratio 21.6 RATIO (10-20); Calcium,Total 9.4 mg/dL (8.5-10.1); Chloride 101 mmol/L (98-107); Creatinine, Serum 0.97 mg/dL (0.70-1.30); EST Glomerular Filtration Rate 86 mL/min (>60); Est Glom Filt Rate - Afr Amer 104 mL/min (>60); Glucose 94 mg/dL (74-106); Potassium 4.4 mmol/L (3.5-5.1); Sodium Level 136 mmol/L (136-145)
--- OUTSIDE RECORDS SUMMARY | 2018-04-10 01:23 | XMS RPT_ITS ---
:1965 Author Organization OHIP Support Name Relationship Address Phone RADHA JENSEN Unavailable Unavailable + STARCHER GEMMA Unavailable Unavailable + EFE JENSENNIS Unavailable Unavailable + STARCHER, GEMMA Unavailable Unavailable + RADHA JENSEN Unavailable Unavailable + STARCHER, GEMMA Unavailable Unavailable + EFE JENSENNIS Unavailable Unavailable + STARCHER, GEMMA Unavailable Unavailable + [employer] Unavailable [address] + [place] [address] ELEUTERIOINGER RADHA Unavailable Unavailable + [employer] Unavailable [address] + [place] [address] ELEUTERIOINGER RADHA Unavailable Unavailable + [place] [address] [employer] Unavailable [address] + [place] [address] ELEUTERIOINGER, RADHA Unavailable Unavailable + [place] [address] [employer] Unavailable [address] + [place] [address] ELEUTERIOINGER, RADHA Unavailable Unavailable + [place] [address] [employer] Unavailable [address] + [place] [address] ELEUTERIOINGER RADHA Unavailable Unavailable + [place] [address] [employer] Unavailable [address] + [place] [address] DERFLINGER, RADHA Unavailable Unavailable + [place] [address] [facility] Unavailable [address] + [place] [address] RADHA JENSEN Unavailable Unavailable + [place] [address] RADHA JENSEN Unavailable Unavailable + GEMMA WELSH Unavailable Unavailable + BEO Unavailable [address] + [place] [address] RADHA JENSEN Unavailable . + [place] [address] Care Team Providers Name Role Phone SHERIDAN [...] Admitting Unavailable Jesse, Osvaldo Chi Attending Unavailable Jesse, Osvaldo Chi Referring Unavailable Samm Davies Primary [...] 03/13/2018 Admitting Infection and SHERIDAN BERG, Active [facility] Diagnosis inflammatory TITO Winters reaction due to Repository internal right knee prosthesis, initial encounter / T84.53XA(ICD-10) 03/13/2018 Admitting Essential (primary) MALCOLM DO, Active [facility] Diagnosis hypertension / DR. 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11(ICD-10) PROCEDURES PROCEDURES No Procedure Records FoundRESULTS RESULTS LIPID Collected: 03/13/2018 Status: F Source: [facility] 8:36 AM [facility] REPOSITORY TYPE CODE TESTS [...] Performed By: #### LIPID, CMP, GFR #### [place] [id number] [place] [address] CMP Collected: 03/13/2018 Status: F Source: [facility] 8:36 AM [facility] REPOSITORY TYPE CODE TESTS [...] Performed By: #### LIPID, CMP, GFR #### [address] [address] .GFR Collected: 03/13/2018 Status: F Source: [facility] 8:36 AM [facility] REPOSITORY TYPE CODE TESTS RESULT OUT OF REFERENCE UNITS RANGE LAB GFRAA(LOINC ml/min/1.73 ) sqm GFR 124 Mal[place]ian Result Comment: GFR Population mean for , [...] Performed By: #### LIPID, CMP, GFR #### [address] [address] CBC Collected: 03/13/2018 Status: F Source: [facility] 8:36 AM [facility] REPOSITORY TYPE CODE TESTS RESULT OUT [...] Performed By: #### CBC, ADIFF, ANEU #### [address] [address] #### ESR, CRP #### [address] [address] .AUTO DIFF Collected: 03/13/2018 Status: F Source: [facility] 8:36 AM [facility] REPOSITORY TYPE CODE TESTS RESULT OUT [...] Performed By: #### CBC, ADIFF, ANEU #### [address] [address] #### ESR, CRP #### [address] [address] .NEUABS Collected: 03/13/2018 Status: F Source: [facility] 8:36 AM [facility] REPOSITORY TYPE CODE TESTS RESULT OUT OF REFERENCE UNITS RANGE LAB ANEU(LOINC) 2.85-6.16 10 3/mcL Low Neutrophil, 2.60 Absolute Performed By: #### CBC, ADIFF, ANEU #### [address] [address] #### ESR, CRP #### [address] [address] ESR Collected: 03/13/2018 Status: F Source: [facility] 8:36 AM [facility] REPOSITORY TYPE CODE TESTS RESULT OUT OF REFERENCE UNITS RANGE LAB ESR(LOINC) 0-20 mm/hr Erythrocyte Sed Rate 19 Performed By: #### CBC, ADIFF, ANEU #### [address] [address] #### ESR, CRP #### [address] [address] CRP Collected: 03/13/2018 Status: F Source: [facility] 8:36 AM [facility] REPOSITORY TYPE CODE TESTS RESULT OUT OF REFERENCE UNITS RANGE LAB CRP(LOINC) <=0.80 mg/dL High C-Reactive 0.97 Protein Performed By: #### CBC, ADIFF, ANEU #### [address] [address] #### ESR, CRP #### [address] [address] ERYTHROCYTE SED RATE Collected: 03/06/2018 Status: F Source: [place] 2:12 PM [facility] REPOSITORY TYPE CODE TESTS RESULT OUT OF RANGE REFERENCE UNITS LAB L102.0000 0-20 mm/hr Normal SED RATE 9 Performed By: #### L101.9900, L100.0500 #### [facility] [address] [place], [address] CBC-COMPLETE BLOOD CNT Collected: 03/06/2018 Status: F Source: [place] NO DIFF 2:12 PM [facility] REPOSITORY TYPE CODE TESTS RESULT OUT [...] 9.6 Performed By: #### L101.9900, L100.0500 #### [facility] [address] [place], [address] BASIC METABOLIC Collected: 03/06/2018 Status: F Source: [place] PROFILE (BMP) 2:12 PM [facility] REPOSITORY TYPE CODE TESTS RESULT OUT [...] GAP 7 Performed By: #### L500.2500 #### [facility] [address] [place], [place], [address] CBC W/DIFF, AUTOMATED Collected: 02/26/2018 Status: F Source: [place] 10:19 AM [facility] REPOSITORY TYPE CODE TESTS RESULT OUT [...] 2.47 Performed By: #### L100.0100, L101.9900 #### [facility] [address] [place], [address] ERYTHROCYTE SED RATE Collected: 02/26/2018 Status: F Source: [place] 10:19 AM [facility] REPOSITORY TYPE CODE TESTS RESULT OUT OF RANGE REFERENCE UNITS LAB L102.0000 0-20 mm/hr Normal SED RATE 13 Performed By: #### L100.0100, L101.9900 #### [facility] [address] [place], [address] BASIC METABOLIC Collected: 02/26/2018 Status: F Source: [place] PROFILE (BMP) 10:19 AM [facility] REPOSITORY TYPE CODE TESTS RESULT OUT [...] GAP 8 Performed By: #### L500.2500 #### [facility] [address] [place], [address] INITAL EVALUATION (1) Observed: 02/26/2018 Status: F Source: [place] - PT 10:12 AM [facility] REPOSITORY [facility] [address] [place] [address] Fax REHABILITATION SERVICES INITIAL EVALUATION MR#: [id number] Acct: [id number] Name: NIRAJ JENSEN Rep #: [id number] : 1965 52 From: Jarad Obando PT, [...] to be FAXED BACK to us at [phone] for Medicare purposes. Please let me know if there are questions or concerns regarding this plan of care. Physician Signature: Date: <Electronically signed by Jarad Obando PT, ATC> 02/26/18 1012 CC: Samm Davies DO; Tito Swartz MD [facility] Signed For Medicare only, by signing this I certify the plan of care. Physicians Signature Date CBC W/DIFF, AUTOMATED Collected: 02/23/2018 Status: F Source: [place] 6:28 AM [facility] REPOSITORY TYPE CODE TESTS RESULT OUT [...] 1.32 Performed By: #### L100.0100, L101.9900 #### [facility] [address] [facility] [place], [place], [address] ERYTHROCYTE SED RATE Collected: 02/23/2018 Status: F Source: [place] 6:28 AM [facility] REPOSITORY TYPE CODE TESTS RESULT OUT OF RANGE REFERENCE UNITS LAB L102.0000 0-20 mm/hr Normal SED RATE 6 Performed By: #### L100.0100, L101.9900 #### [facility] [address] [facility] [place], [place], [address] BASIC METABOLIC Collected: 02/23/2018 Status: F Source: [place] PROFILE (BMP) 6:28 AM [facility] REPOSITORY TYPE CODE TESTS RESULT OUT [...] GAP 10 Performed By: #### L500.2500 #### [facility] [address] [place], [address] CBC W/DIFF, AUTOMATED Collected: 02/16/2018 Status: F Source: [place] 6:55 AM [facility] REPOSITORY TYPE CODE TESTS RESULT OUT [...] 2.32 Performed By: #### L100.0100, L101.9900 #### [facility] [address] [place], [place], [address] ERYTHROCYTE SED RATE Collected: 02/16/2018 Status: F Source: [place] 6:55 AM [facility] REPOSITORY TYPE CODE TESTS RESULT OUT OF RANGE REFERENCE UNITS LAB L102.0000 0-20 mm/hr High SED RATE 47 Performed By: #### L100.0100, L101.9900 #### [facility] [address] [place], [place], [address] BASIC METABOLIC Collected: 02/16/2018 Status: F Source: [place] PROFILE (BMP) 6:55 AM [facility] REPOSITORY TYPE CODE TESTS RESULT OUT [...] GAP 7 Performed By: #### L500.2500 #### [facility] [address] [facility] [place], [address] DISCHARGE SUMMARY Observed: 02/13/2018 Status: F Source: [place] 9:36 PM [facility] REPOSITORY [facility] Medical Records Department [address] [place] [address] Discharge Summary 02/13/18 2133 MR#: [id number] Acct: [id number] Name: NIRAJ JENSEN Mauricio Rep #: [id number] : 1965 52 From: Osvaldo Molina MD PCP: Samm Davies DO Status: ADM IN Y Location: [place] [address] Discharge Date and Diagnosis - Problem List [...] 02/13/2018 Status: F Source: [place] 9:33 PM [facility] REPOSITORY [facility] Medical Records Department [address] [place] [address] Instructions for Home/Discharge Instructions 02/13/182130 MR#: [id number] Acct: [id number] Name: NIRAJ JENSEN Rep #: [id number] : 1965 52 From: Osvaldo Molina MD [...] Status: F Source: [place] LEVEL 7:15 AM [facility] REPOSITORY Order Comment: Comments: PLEASE DRAW 30MIN [...] (Ventilator/Healtcare Associated) -Sepsis PLEASE CONTACT PHARMACY SERVICES (#[id number]) FOR INTERPRETATION OF RESULTS. Performed By: #### L501.8820 #### [facility] [address] [place], [address] CBC W/DIFF, AUTOMATED Collected: 02/09/2018 Status: F Source: [place] 6:00 AM [facility] REPOSITORY Order Comment: SPECIMEN OBTAINED FROM LINE [...] 1.40 Performed By: #### L100.0100, L101.9900 #### [facility] [address] [place], [place], [address] ERYTHROCYTE SED RATE Collected: 02/09/2018 Status: F Source: [place] 6:00 AM [facility] REPOSITORY Order Comment: SPECIMEN OBTAINED FROM LINE DRAW TYPE CODE TESTS RESULT OUT OF RANGE REFERENCE UNITS LAB L102.0000 0-20 mm/hr High SED RATE 74 Performed By: #### L100.0100, L101.9900 #### [facility] [address] [place], [place], [address] BASIC METABOLIC Collected: 02/09/2018 Status: F Source: [place] PROFILE (BMP) 6:00 AM [facility] REPOSITORY Order Comment: SPECIMEN OBTAINED FROM LINE [...] Normal 7 Performed By: #### L500.2500 #### [facility] [address] [facility] [place], [address] DISCHARGE SUMMARY Observed: 02/04/2018 Status: F Source: [place] 8:05 AM [facility] REPOSITORY [facility] Medical Records Department [address] [place] [address] Discharge Summary 02/04/18 0800 MR#: [id number] Acct: [id number] Name: NIRAJ JENSEN Rep #: [id number] : 1965 52 From: Paul Harris PA-C PCP: Samm Davies DO Status: DIS IN Y Location: [facility] [id number] Discharge Date and Diagnosis - Problem List [...] was admitted to the 3rd floor at [facility]. The patient's pain was managed with the use of IV and p.o. pain medications. Patient was placed in a knee immobilizer postoperatively. Infectious disease was consulted and will be managing postoperative antibiotics. Patient will be placed on IV antibiotics for 6 weeks. Patient participated in physical therapy. Patient was discharged on postoperative day #3 to transitional care unit at [facility]. Patient was given medications stated below. Patient will follow up with [facility] per postop instructions for reassessment. Patient [...] 02/11/18 @ 1:15 pm Additional Instructions: Follow [facility] postop instructions Medical Necessity - Tobacco Use Smoking Status: Former smoker Meaningful Use Info Meaningful Use Diagnoses (Choose all that apply): None applicable 02/04/18 08 <Electronically signed by Paul Harris PA-C> Date Paul Harris PA-C Cosigner Signature (if applicable): Date CC: Samm Davies DO; Paul OQUENDO Signed VANCOMYCIN, TROUGH Collected: 02/04/2018 Status: F Source: [place] LEVEL 7:10 AM [facility] REPOSITORY Order Comment: Comments: Draw 30 min [...] (Ventilator/Healtcare Associated) -Sepsis PLEASE CONTACT PHARMACY SERVICES (#[id number]) FOR INTERPRETATION OF RESULTS. Performed By: #### L501.8820 #### [facility] [address] [place], [place], [address] CBC W/DIFF, AUTOMATED Collected: 02/02/2018 Status: F Source: [place] 5:55 AM [facility] REPOSITORY Order Comment: SPECIMEN OBTAINED FROM LINE [...] 1.22 Performed By: #### L100.0100, L101.9900 #### [facility] [address] [place], [address] ERYTHROCYTE SED RATE Collected: 02/02/2018 Status: F Source: [place] 5:55 AM [facility] REPOSITORY Order Comment: SPECIMEN OBTAINED FROM LINE DRAW TYPE CODE TESTS RESULT OUT OF RANGE REFERENCE UNITS LAB L102.0000 0-20 mm/hr High SED RATE 83 Performed By: #### L100.0100, L101.9900 #### [facility] [address] [place], [place], [address] BASIC METABOLIC Collected: 02/02/2018 Status: F Source: [place] PROFILE (BMP) 5:55 AM [facility] REPOSITORY Order Comment: SPECIMEN OBTAINED FROM LINE [...] Normal 7 Performed By: #### L500.2500 #### [facility] [address] [place], [address] VANCOMYCIN, TROUGH Collected: 02/01/2018 Status: F Source: [place] LEVEL 11:39 PM [facility] REPOSITORY Order Comment: Comments: PLEASE DRAW 30MIN [...] (Ventilator/Healtcare Associated) -Sepsis PLEASE CONTACT PHARMACY SERVICES (#1403) FOR INTERPRETATION OF RESULTS. Performed By: #### L501.8820 #### [facility] [address] [facility] [place], [address] HISTORY AND PHYSICAL Observed: 02/01/2018 Status: F Source: [place] EXAM 11:16 PM [facility] REPOSITORY [facility] Medical Records Department [address] [place] [address] History and Physical 02/01/18 2259 MR#: [id number] Acct: [id number] Name: NIRAJ JENSEN Rep #: [id number] : 1965 52 From: Osvaldo Molina MD PCP: Samm Davies DO Status: ADM IN Y Location: [facility] TC9-1 Problem List (1) Hypertension Status: Chronic [...] Q8H thru 03/12/2018, Dr. Neumann following. 02/01/18 2476 <Electronically signed by Osvaldo Molina MD> Date Osvaldo Molina MD Cosigner Signature: Date (if applicable) CC: Samm Davies DO; Osvaldo Molina MD Signed DISCHARGE INSTRUCTION Observed: 02/01/2018 Status: F Source: [place] 7:35 AM [facility] REPOSITORY [facility] Medical Records Department [address] [place] [address] Instructions for Home/Discharge Instructions 02/01/18 0733 MR#: [id number] Acct: [id number] Name: NIRAJ JENSEN Rep #: [id number] : 1965 52 From: Paul Harris PA-C [...] and daily as needed. Additional Instructions: Follow [facility] postop instructions Allergies/Adverse Reactions: Allergies No [...] BLOOD CNT Collected: 02/01/2018 Status: F Source: [place] NO DIFF 5:35 AM [facility] REPOSITORY Order Comment: SPECIMEN OBTAINED FROM LINE [...] MPV 9.4 Performed By: #### L100.0500 #### [facility] [address] [place], [address] VANCOMYCIN, TROUGH Collected: 01/31/2018 Status: F Source: [place] LEVEL 3:21 PM [facility] REPOSITORY Order Comment: Time Medication is to [...] (Ventilator/Healtcare Associated) -Sepsis PLEASE CONTACT PHARMACY SERVICES (#[id number]) FOR INTERPRETATION OF RESULTS. Performed By: #### L501.8820 #### [facility] [address] [facility] [address] [place], [place], [address] CBC-COMPLETE BLOOD CNT Collected: 01/31/2018 Status: F Source: [place] NO DIFF 5:54 AM [facility] REPOSITORY TYPE CODE TESTS RESULT OUT [...] MPV 9.7 Performed By: #### L100.0500 #### [facility] [address] [place], [address] CONSULTATION Observed: 01/30/2018 Status: F Source: [place] 4:29 PM [facility] REPOSITORY [facility] Medical Records Department [address] [place] [address] Consultation 01/30/18 1625 MR#: [id number] Acct: [id number] Name: NIRAJ JENSEN Rep #: [id number] : 1965 52 From: Jaguar Neumann MD PCP: Samm Davies, Status: ADM IN Y Location: [facility] [id number] Problem List (1) Infected prosthetic knee joint [...] F Source: [place] NO DIFF 5:45 AM [facility] REPOSITORY TYPE CODE TESTS RESULT OUT [...] MPV 9.6 Performed By: #### L100.0500 #### [facility] [address] [place], [address] BASIC METABOLIC Collected: 01/30/2018 Status: F Source: [place] PROFILE (BMP) 5:45 AM [facility] REPOSITORY TYPE CODE TESTS RESULT OUT [...] Normal 7 Performed By: #### L500.2500 #### [facility] [address] [place], [address] OPERATIVE REPORT Observed: 01/29/2018 Status: F Source: [place] 4:05 PM [facility] REPOSITORY [facility] Medical Records Department [address] [place] [address] Operative Report 01/29/18 1553 MR#: [id number] Acct: [id number] Name: NIRAJ JENSEN Rep #: [id number] : 1965 52 From: Tito Swartz MD PCP: Samm Davies DO Status: ADM IN Y Location: [place] [id number] Report of Operation Date of Procedure: 01/29/18 [...] osteomyelitis was encountered requiring significant bony debridement.. lease administrator: Paul Harris Type of Anesthesia:: Spinal Anesthesiologist: [...] and hemostasis we did place a lamina medical historian in the joint and aggressively debride the [...] then awakened from anesthesia, transferred to the [facility] and transferred to the PACU for recovery. [...] successfully passed an antibiotic holiday. My physician farm assistant was a vital part of this case. [...] 2 VIEWS Observed: 01/29/2018 Status: F Source: [place] 3:53 PM [facility] REPOSITORY [facility] Imaging Services [address] [place] [address] Knee 1 or 2 Views MR#: [id number] Acct: [id number] Name: NIRAJ JENSEN Rep #: [id number] : 1965 M 52 From: Dave Ngo DO PCP: Samm Davies DO Status: ADM IN Study: Knee 1 or 2 Views Date of Exam: 01/29/18 Exam# [id number] Ordering Dr: Tito Swartz MD STUDY: X-RAY - RIGHT KNEE [...] Dave Ngo DO at 21:32 EDT Tel [phone], Service support , CC: Samm Davies DO; Tito Swartz MD Autocad Operator: Signed Observed: 01/29/2018 Status: F Source: [place] CULTURE, DEEP WOUND 2:09 PM [facility] REPOSITORY Order Date: 11/01/16 Comments: 1. RIGHT [...] <=0.5 S (NF) indicates non-formulary drug at [facility]. Approval by Infectious Disease Specialist required before non-formulary drugs may be ordered and/or dispensed. * CLSI guidelines does not recommend testing of cephalosporins. This interpretation is deduced from Beta-lactam/penicillin results. Cult, Anaerobic No growth in 5 days. Performed By: #### M100.1500 #### [facility] [place], [address] Observed: 01/29/2018 Status: F Source: [place] CULTURE, DEEP WOUND 2:09 PM [facility] REPOSITORY Order Date: 11/01/16 Comments: 2. RIGHT [...] <=0.5 S (NF) indicates non-formulary drug at [facility]. Approval by Infectious Disease Specialist required before non-formulary drugs may be ordered and/or dispensed. * CLSI guidelines does not recommend testing of cephalosporins. This interpretation is deduced from Beta-lactam/penicillin results. Cult, Anaerobic No anaerobic bacteria isolated. Performed By: #### M100.1500 #### [facility] [address] [place], [address] Observed: 01/29/2018 Status: F Source: [place] CULTURE, DEEP WOUND 2:09 PM [facility] REPOSITORY Order Date: 11/01/16 Comments: 3. RIGHT [...] <=0.5 S (NF) indicates non-formulary drug at [facility]. Approval by Infectious Disease Specialist required before non-formulary drugs may be ordered and/or dispensed. * CLSI guidelines does not recommend testing of cephalosporins. This interpretation is deduced from Beta-lactam/penicillin results. Cult, Anaerobic No anaerobic bacteria isolated. Performed By: #### M100.1500 #### [facility] [address] [place], [address] Observed: 01/29/2018 Status: F Source: [place] CULTURE, DEEP WOUND 2:09 PM [facility] REPOSITORY Order Date: 11/01/16 Comments: 4. RIGHT [...] <=0.5 S (NF) indicates non-formulary drug at [facility]. Approval by Infectious Disease Specialist required before non-formulary drugs may be ordered and/or dispensed. * CLSI guidelines does not recommend testing of cephalosporins. This interpretation is deduced from Beta-lactam/penicillin results. Cult, Anaerobic No anaerobic bacteria isolated. Performed By: #### M100.1500 #### [facility] [place], [address] AFB Observed: 01/29/2018 Status: F Source: [place] CULT/SMEAR [id number] 2:09 PM [facility] REPOSITORY Comments: 1. RIGHT SUPRAPATELLAR POUCH SYNOVIUM Is this test to exclude patient from TB Isolation? N AFB Smear/Fluor TESTING PERFORMED AT [facility]. ORIGINAL REPORT ON FILE IN LAB CONTAINS ADDITIONAL TEST SITE INFORMATION. Smear, Acid Fast Tissue Grinding Smear: Negative AFB Cult [facility]. ORIGINAL REPORT ON FILE IN LAB CONTAINS ADDITIONAL TEST SITE INFORMATION. Culture, Acid Fast NO ACID-FAST BACILLI ISOLATED AFTER 6 WEEKS. Performed By: #### M100.3880, M600.1900 #### [facility] [address] [place], [address] Observed: 01/29/2018 Status: F Source: [place] SERRATO FUNGUS W/ 2:09 PM [facility] [id number] REPOSITORY Comments: 1. RIGHT SUPRAPATELLAR POUCH SYNOVIUM Is this test to exclude patient from TB Isolation? N Cu,[id number] TESTING PERFORMED AT [facility]. ORIGINAL REPORT ON FILE IN LAB CONTAINS ADDITIONAL TEST SITE INFORMATION. CUF No yeast or mold isolated after [address] [facility]. ORIGINAL REPORT ON FILE IN LAB CONTAINS ADDITIONAL TEST SITE INFORMATION. Fungus Stain No yeast or mold observed. Performed By: #### M100.3880, M600.1900 #### [facility] [address] [place], [address] AFB Observed: 01/29/2018 Status: F Source: [place] CULT/SMEAR [id number] 2:09 PM [facility] Comments: 2. RIGHT FEMORAL MEMBRANE Is this test to exclude patient from TB Isolation? N AFB Smear/Fluor TESTING PERFORMED AT [facility]. ORIGINAL REPORT ON FILE IN LAB CONTAINS ADDITIONAL TEST SITE INFORMATION. Smear, Acid Fast Tissue Grinding Smear: Negative AFB Cult [facility] ORIGINAL REPORT ON FILE IN LAB CONTAINS ADDITIONAL TEST SITE INFORMATION. Culture, Acid Fast NO ACID-FAST BACILLI ISOLATED AFTER 6 WEEKS. Performed By: #### M100.3880, M6.0 #### [facility] [address] [place], [address] Observed: 01/29/2018 Status: F Source: [place] CULTURE, FUNGUS W/ 2:09 PM [facility] [id number] REPOSITORY Comments: 2. RIGHT FEMORAL MEMBRANE Is this test to exclude patient from TB Isolation? N Ambrocio [id number] TESTING PERFORMED AT [facility]. ORIGINAL REPORT ON FILE IN LAB CONTAINS ADDITIONAL TEST SITE INFORMATION. CUF No yeast or mold isolated after [address] [facility]. ORIGINAL REPORT ON FILE IN LAB CONTAINS ADDITIONAL TEST SITE INFORMATION. Fungus Stain No yeast or mold observed. Performed By: #### M100.3880, M600.1900 #### [facility] [address] [place], [address] AFB Observed: 01/29/2018 Status: F Source: [place] CULT/SMEAR [id number] 2:09 PM [facility] REPOSITORY Comments: 3. RIGHT TIBIAL MEMBRANE Is this test to exclude patient from TB Isolation? N AFB Smear/Fluor TESTING PERFORMED AT [facility]. ORIGINAL REPORT ON FILE IN LAB CONTAINS ADDITIONAL TEST SITE INFORMATION. Smear, Acid Fast Tissue Grinding Smear: Negative AFB Cult TESTING PERFORMED AT [facility]. ORIGINAL REPORT ON FILE IN LAB CONTAINS ADDITIONAL TEST SITE INFORMATION. Culture, Acid Fast NO ACID-FAST BACILLI ISOLATED AFTER 6 WEEKS. Performed By: #### M100.3880, M600.1900 #### [facility] [address] [place], [address] Observed: 01/29/2018 Status: F Source: AMBROCIO MEJIA W/ 2:09 PM [facility] [id number] REPOSITORY Comments: 3. RIGHT TIBIAL MEMBRANE Is this test to exclude patient from TB Isolation? N Pedro,Svlthz7558 TESTING PERFORMED AT [facility]. ORIGINAL REPORT ON FILE IN LAB CONTAINS ADDITIONAL TEST SITE INFORMATION. CUF No yeast or mold isolated after [address] TESTING PERFORMED AT [facility]. ORIGINAL REPORT ON FILE IN LAB CONTAINS ADDITIONAL TEST SITE INFORMATION. Fungus Stain No yeast or mold observed. Performed By: #### M100.3880, M600.1900 #### [facility] [address], [address] 12 LEAD ELECTROCARDIOGRAM Observed: 01/29/2018 Status: F Source: [place] 9:10 AM [facility] REPOSITORY [facility] Cardiovascular Services [address] [place] [address] EKG - [facility] 01/25/18 1246 MR#: [id number] Acct: [id number] Name: NIRAJ JENSEN Rep #: [id number] : 1965 52 From: Dc Schilling MD Attending Dr: Tito Swartz MD Status: PRE IN Ordering Dr: Jose Sands MD Date: 01/25/18 Location: [facility] Sex: M C Admitted: Test Reason : Blood Pressure : / mmHG Vent. Rate : 062 BPM Atrial Rate : 062 BPM P-R Int : 146 ms QRS Dur : 094 ms QT Int : 384 ms P-R-T Axes : 039 041 032 degrees QTc Int : 389 ms Normal sinus rhythm Normal ECG Confirmed by DC SCHILLING ([id number]), editorial specialist WANG CULVER ([id number]) on 01/29/2018 9:10:08 AM Referred By: Tito Swartz Confirmed By:DC SCHILLING 01/29/18 0910 Date Dc Schilling MD CC: Jose Sands MD; Samm Davies DO; Tito Swartz MD Date Dictated: 01/25/18 1246 Date Transcribed: 01/25/181245 Autocad Operator: Signed HISTORY AND PHYSICAL Observed: 01/28/2018 Status: F Source: [place] EXAM 7:18 AM [facility] REPOSITORY [facility] Medical Records Department [address] [place] [address] History and Physical 01/28/18 0717 MR#: [id number] Acct: [id number] Name: NIRAJ JENSEN Rep #: [id number] : 1965 52 From: Paul Harris PA-C PCP: Samm Davies DO Status: PRE IN Y Location: [facility] History and Physical DATE OF SURGERY: 01/29/2018 [...] Hx: Carpal Tunnel Release Rt - (2001) [facility] [place] Vasectomy - (1996) [place], [place] Knee Arthroscopy RT - (06/09/2016) SAW@[facility] Knee Replacement RT - (01/09/2017) SAW@ [facility] Anesthesia Complications: None Assistive Devices: None Reviewed, no changes. SOCIAL HISTORY: SH: Marital: .Occupation: [employer].Work Status: Currently Working.Hand Dominance: Right-handed. Personal Habits: [...] F Source: [place] NO DIFF 1:50 PM [facility] REPOSITORY Order Comment: Comments: COLLECTED BY GERONIMO IN [facility] TYPE CODE TESTS RESULT OUT OF RANGE [...] MPV 9.4 Performed By: #### L100.0500 #### [facility] [address] [place], [place], [address] Observed: 01/25/2018 Status: F Source: [place] MRSA/SAID SCREEN 1:50 PM [facility] REPOSITORY MRSA/SAID SCRN S. AUREUS S. aureus Negative MRSA MRSA Negative Performed By: #### M100.651 #### [facility] [address] [address] [place], [place], [address] SYNOVIAL FLUID RBC, Collected: 01/17/2018 Status: C Source: [place] WBC AND DIFF 5:21 PM [facility] REPOSITORY TYPE CODE TESTS RESULT OUT [...] /SYN 3 Performed By: #### L200.0400 #### [facility] [address] [place] [address]. [place], [place], [address] Observed: 01/17/2018 Status: F Source: [place] CULTURE, BODY FLUID 5:21 PM [facility] REPOSITORY Results called on 01/21/188877 by VERONICA LIZARRAGA AT [phone]. List Antibiotics Last 48 Hours? N List [...] <=0.5 S (NF) indicates non-formulary drug at [facility]. Approval by Infectious Disease Specialist required before non-formulary drugs may be ordered and/or dispensed. * CLSI guidelines does not recommend testing of cephalosporins. This interpretation is deduced from Beta-lactam/penicillin results. Cult, Anaerobic No anaerobic bacteria isolated. Performed By: #### M100.1300 #### [facility] [address] [place], [address] Observed: 01/17/2018 Status: F Source: [place] ACID FAST BACT 5:21 PM [facility] CULT/SM REPOSITORY AFB Smear/Fluor TESTING PERFORMED AT [facility]. ORIGINAL REPORT ON FILE IN LAB CONTAINS ADDITIONAL TEST SITE INFORMATION. Smear, Acid Fast NO ACID-FAST BACILLI OBSERVED ON SMEAR. AFB Cult TESTING PERFORMED AT [facility]. ORIGINAL REPORT ON FILE IN LAB CONTAINS ADDITIONAL TEST SITE INFORMATION. Culture, Acid Fast NO ACID-FAST BACILLI ISOLATED AFTER 6 WEEKS. Performed By: #### M300.1000 #### [facility] [address] [place], [address] Observed: 01/17/2018 Status: F Source: K[place]CEE SERRATO, FUNGUS 8482 5:21 PM [facility] REPOSITORY Cu,Vksmah9598 TESTING PERFORMED AT [facility]. ORIGINAL REPORT ON FILE IN LAB CONTAINS ADDITIONAL TEST SITE INFORMATION. CUF No yeast or mold isolated after 4 weeks. Performed By: #### M600.2000 #### [facility] [address] [place], [address] CBC Collected: 01/09/2018 Status: F Source: [facility] 3:41 PM [facility] REPOSITORY TYPE CODE TESTS RESULT OUT [...] Performed By: #### CBC, ADIFF, ANEU #### [address] [address] #### ESR, CRP #### [place] [address] .AUTO DIFF Collected: 01/09/2018 Status: F Source: [facility] 3:41 PM [facility] REPOSITORY TYPE CODE TESTS RESULT OUT [...] Performed By: #### CBC, ADIFF, ANEU #### [address] [address] #### ESR, CRP #### [place] [address] .NEUABS Collected: 01/09/2018 Status: F Source: [facility] 3:41 PM [facility] REPOSITORY TYPE CODE TESTS RESULT OUT OF REFERENCE UNITS RANGE LAB ANEU(LOINC) 2.85-6.16 10 3/mcL High Neutrophil, 6.30 Absolute Performed By: #### CBC, ADIFF, ANEU #### [address] [address] #### ESR, CRP #### [place] [address] ESR Collected: 01/09/2018 Status: F Source: [facility] 3:41 PM [facility] REPOSIT[facility] TYPE CODE TESTS RESULT OUT OF REFERENCE UNITS RANGE LAB ESR(LOINC) 0-20 mm/hr Erythrocyte High Sed Rate 57 Performed By: #### CBC, ADIFF, ANEU #### [place] [address] [place], [place] [address] #### ESR, CRP #### [facility] [address] [place] [address] CRP Collected: 01/09/2018 Status: F Source: [facility] 3:41 PM [facility] REPOSITORY TYPE CODE TESTS RESULT OUT OF REFERENCE UNITS RANGE LAB CRP(LOINC) <=0.80 mg/dL High C-Reactive 6.71 Protein Performed By: #### CBC, ADIFF, ANEU #### [place] [address] [place], [place] [address] #### ESR, CRP #### [facility] [address] [place] [address] ALLERGIES ALLERGIES DATE TYPE / CODE NAME / CODE REACTION SEVERITY SOURCE 01/25/2018 Drug No Known Unknown [facility] Allergy/4160 Allergies/F00 Hospital 01843(SNOMED 6700246(RXNOR Repository CT) M) ENCOUNTERS ENCOUNTERS ADMIT/DISCHARGE ACCOUNT NUMBER ADMITTING ENCOUNTER LOCATION SOURCE CLASS 03/15/2018 [id number] Ambulatory BBuilding:RUBEN Bela [facility] Repository 03/15/2018 [id number] Ambulatory BBuilding:BRIT Cramer [facility] Repository 03/13/2018/03/17/20 [id number] Ambulatory BBuilding:DR Bela Ohara [facility] Repository 03/13/2018/03/17/20 [id number] Ambulatory BBuilding:DR Bela Ohara [facility] Repository 03/06/2018 [id number] Ambulatory [facility] ding:LAB Repository 03/06/2018 [id number] Ambulatory [facility] ding:PT Repository 02/26/2018/03/01/20 [id number] Ambulatory [address] ding:LAB Repository 02/01/2018/02/17/20 [id number] Osvaldo Molina Inpatient [address] ding:TCURoom Repository : DNE39Zcl: 1 01/29/2018/02/02/20 [id number] [place], Inpatient [place] 18 Tito Encounter [facility] ding:XU0Dwjd Repository : TP072Klj: 1 01/25/2018 [id number] Ambulatory BMSBuilding: [place] [facility] Repository 01/17/2018 [id number] Ambulatory [place] [facility] ding:LABSPEC Repository 01/09/2018/01/10/20 [id number] Ambulatory BBuilding:OL [address] Repository 04/04/2017/04/04/19 [id number] Ambulatory [address] ding:PT Repository PAYERS PAYERS ENCOUNTER GUARANTOR PAYER SUBSCRIBER SOURCE 03/15/2018 NIRAJ Martínez Primary [facility]: [facility] [facility] [id number] Repository ANGELIC Number: Luis Daniel DANG [id number] [place] [address]Zhw: Date:2018-03-15 754[address]Mhg: [phone] ()Tel: ([phone]) Name:BPO BOX (HP) () [address]Kdpjgjd, [place] [phone] ( [address]DC: 03/15/2018 NIRAJ Martínez Primary NIRAJ Martínez [facility] Center[facility]: Insurance:[facility] [address] [facility] [id number] Repository ANGELIC Number: Luis Daniel DANG [id number] [place], [place] [address]Lrf: Date:2018-03-15 510[address]Pmq: [phone] [phone] ()Tel: ([phone]) Name:BPO BOX (HP) (wp) 105[address]SIDDHARTH Rocha [phone] () 484[address]UR: 03/13/2018 NIRAJ Martínez Primary NIRAJ Cramer [facility] DERFLINGERDOB: Insurance:ANTHEM BLUE DERFLINGERDOB: [facility] [address] INSCOPolicy [id number] Repository ANGELIC Number: Luis Daniel DANG [id number] [facility] [address]Rwp: Date:2018-03-13 325[address]Nsr: [phone] (HP)Tel: ([phone]) Name:BPO BOX (HP) () SIDDHARTH Higginbotham [phone] () [address]BZ: 03/13/2018 NIRAJ Martínez Primary NIRAJ Cramer [facility] DERFLINGERDOB: Insurance:ANTHEM BLUE DERFLINGERDOB: [facility] [id number] Repository GLOUSTER Number: Luis Daniel DANG [id number] [facility], [place] [address]Ifz: Date:2018-03-13 58[address]Vpt: [phone] [id number] [phone] (HP)Tel: ([phone]) Name:BPO BOX (HP) () SIDDHARTH Higginbotham [phone] () 99[address]FB: 03/06/2018 NIRAJ L Primary NIRAJ Martínez [place] [id number] Insurance:ANTHEMPolicy DERFLINGERDOB: [facility]ly [facility] Number: [id number] [facility] [place], [id number] Repository [place] [address]Map: Date:0082-70-68[address]JUIVARBISDDHARTH ABRAMS () [address]DQ: 03/06/2018 Secondary NOT GIVENUNK [place] Insurance:SELF PAY [facility] Number: Effective Repository Date:2018-03-04 03/06/2018 NIRAJ L Primary NIRAJ L [place] [id number] Insurance:ANTHEMPolicy DERFLINGERDOB: Formerly [facility] Number: [id number] County Memorial [id number] Repository [place] [address]Nwm: Date:7703-68-94[address]DSLOTRE, [place] () [address]LY: 03/06/2018 Secondary NOT GIVENUNK [place] Insurance:SELF PAY [facility] Number: Effective Repository Date:2018-02-20 02/26/2018 NIRAJ L Primary NIRAJ L [place] [id number] Insurance:ANTHEMPolicy DERFLINGERDOB: Formerly [facility] Number: [id number] County Memorial [id number] Repository [place] [address]Xap: Date:8525-79-00JX [address]ZUWPTXGSIDDHARTH ABRAMS () [address]FY: 02/26/2018 Secondary NOT GIVENUNK [place] Insurance:SELF PAY [facility] Number: Effective Repository Date:2018-02-19 02/01/2018 NIRAJ L Primary NIRAJ L [place] [id number] Insurance:ANTHEMPolicy DERFLINGERDOB: Formerly [facility] Number: [id number] Orthopaedics & Sports [id number] Repository [place] [address]Rew: Date:6649-47-31[address]VPFVHBXSIDDHARTH ABRAMS () [address]NR: 02/01/2018 Secondary NOT GIVENUNK [place] Insurance:SELF PAY [facility] Number: Effective Repository Date:2018-02-01 01/29/2018 NIRAJ L Primary NIRAJ L [place] [id number] Insurance:ANTHEMPolicy DERFLINGERDOB: [facility]ly [facility] Number: [id number] County Memorial [id number] Repository [place] [address]Bla: Date:9877-32-34MR [address]DERCHVJSIDDHARTH ABRAMS () [address]CL: 01/29/2018 Secondary NOT GIVENUNK [place] Insurance:SELF PAY [facility] Number: Effective Repository Date:2018-01-22 01/25/2018 NIRAJ L Primary NIRAJ L [place] [id number] Insurance:ANTHEMPolicy DERFLINGERDOB: Formerly [facility] Number: [id number] Orthopaedics & Sports [id number] Repository [place] [address]Jmm: Date:3082-01-38BW [address]EDOODCL, [place] () [address]ON: 01/25/2018 Secondary NOT GIVENUNK [place] Insurance:SELF PAY [facility] Number: Effective Repository Date:2018-01-25 01/17/2018 NIRAJ L Primary NIRAJ L [place] [id number] [address] Insurance:ANTHEMPolicy DERFLINGERDOB: Formerly [facility] Number: [id number] Orthopaedics & Sports [id number] Repository [place] [address]Qps: Date:[address]QXAPQIP, [place] () [address]IN: 01/17/2018 Secondary NOT GIVENUNK [place] Insurance:SELF PAY [facility] Number: Effective Repository Date:2018-01-17 01/09/2018 NIRAJ L Primary [facility] L [facility] Insurance:ANTHEM BLUE DERFLINGERDOB: [facility] [address] [facility] [id number] Repository GLOUSTER Number: [facility]'[id number] [place], [place] [address]Cqh: Date:2018-01-09 [address]Jtb: [phone] ()Tel: ([phone]) Name:MARGOTH MAYO () () SIDDHARTH [place] [phone] () [address]XH: 04/04/2017 NIRAJ L Primary NIRAJ L [place] [id number] Insurance:ANTHEMPolichayde JENSENDOB: [facility] Number: [id number] [facility] Healthcare, [id number] Repository [place] [address]Ovb: Date:1738-91-39VV [address]GBAUYMK, [place] () [address]UA: 04/04/2017 Secondary NOT GIVENARYAN [place] Insurance:SELF PAY [facility] Number: Effective Repository Date:2016-12-25
== END 2018-03-01 10:42 | disposition home or self-care (01) ==
LOC: LAB 10:12
PROVIDERS: Referring Provider Internal Medicine Infectious Disease; Visit Provider Internal Medicine Infectious Disease
DX: T84.53XD Infection and inflammatory reaction due to internal right knee prosthesis, subsequent encounter (principal); B95.7 Other staphylococcus as the cause of diseases classified elsewhere; Z96.651 Presence of right artificial knee joint
CPT/HCPCS: 36415; 80048; 85025; 85652

== ENCOUNTER 2018-03-01 12:30 | Outpatient (RCR) | payer BC, SELFPAY ==
--- NOTE | 2018-02-26 10:11 | HP.PTEVAL ---
Patient's Visit Information NIRAJ JENSEN is a 52 year old M referred to Physical Therapy by Tito Callaway MD with a diagnosis of R knee surgery. Date of Evaluation: 02/26/18 Physical Therapist: Jarad Obando PT, - Visit Plan Frequency: 1x/Week Duration: 2 Weeks Plan: Issue HEP for R knee stretching and strengthening ex's - Subjective Subjective: Pt reports he had a R TKA one year ago, but had a staff infection occur and had to have his prosthesis removed on 01/29/18. Pt reports he was in the hospital for 2 1/2 weeks due to the infection. Pt reports he has a antibiotic inserted in his R knee now and they are monitoring his white blood cell levels until they get down to a normal level so they can do the knee replacement again. Pt reports he is in a lot of pain at this time. Pt reports he has significant difficulty with sleep at this time secondary to pain. Pt also notes he has to ambulate with a walker at this time secondary to unsteadiness. Pt reports he is unable to FWB at this time secondary to pain. Pt reports he is to see his doctor 03/11/18 for a followup visit to see where he is at in the healing process. 6/10 at rest, 8/10 at worst (walking and getting in/out of vehicles) - Pain R knee Pain Intensity (Out of 10): 6 Pain Intensity Range: 8 - Objective Neuro: B LE sensation is WNL to light touch. B achilles reflex= 2/3. Girth at joint line: L knee 40 cm, R knee 48 cm. ROM: R knee 0-20-85, L knee 0-125 degrees. MMT: L knee 5/5 throughout. R knee 3/5 throughout - Goals Goal 1:: I with HEP in 1-2 visits Goal Time Frame: 2 Weeks - Rehabilitation Potential Physical Therapy Diagnosis: R knee pain, weakness, and limited ROM secondary to a staff infection of the R knee. Rehabilitation Potential: Good - Anticipated Interventions Patient/Client Instruction: Educate patient on: Condition, Plan of Care For the Purpose of:: To improve self management Therapeutic Exercise to Include: Strength training, Endurance training, Balance training, Flexibilty training, Gait and locomotor training, Passive ROM, Active ROM, Dynamic Lumbar Stabilization For the Purpose of:: To decrease pain, To increase ROM, To improve muscle performance and motor function Cryotherapy (ice pack, ice massage): Yes For the Purpose of:: To decrease pain Thank you for the opportunity to evaluate your patient. For Medicare and Medicare HMO plans, please review the plan of care and approve it. It will need to be FAXED BACK to us at [phone] for Medicare purposes. Please let me know if there are questions or concerns regarding this plan of care. Physician Signature: Date:
--- OUTSIDE RECORDS SUMMARY | 2018-04-09 20:44 | XMS RPT_ITS ---
:1965 Author Organization OHIP Support Name Relationship Address Phone RADHA JENSEN Unavailable Unavailable + STARCHER GEMMA Unavailable Unavailable + EFE JENSENNIS Unavailable Unavailable + STARCHER, GEMMA Unavailable Unavailable + RADHA JENSEN Unavailable Unavailable + STARCHER, GEMMA Unavailable Unavailable + EFE JENSENNIS Unavailable Unavailable + STARCHER, GEMMA Unavailable Unavailable + [facility] Unavailable [address] + [place] [address] ELEUTERIOINGER RADHA Unavailable Unavailable + [facility] Unavailable [address] + [place] [address] ELEUTERIOINGER RADHA Unavailable Unavailable + [place] [address] [employer] Unavailable [address] + [place] [address] ELEUTERIOINGER, RADHA Unavailable Unavailable + [place] [address] [employer] Unavailable [address] + [place] [address] ELEUTERIOINGER, RADHA Unavailable Unavailable + [place] [address] [employer] Unavailable [address] + [place] [address] ELEUTERIOINGER RADHA Unavailable Unavailable + [place] [address] [employer] Unavailable [address] + [place] [address] DERFLINGER, RADHA Unavailable Unavailable + [place] [address] [facility] Unavailable [address] + [place] [address] RADHA JENSEN Unavailable Unavailable + [place] [address] RADHA JENSEN Unavailable Unavailable + GEMMA WELSH Unavailable Unavailable + BE[facility] Unavailable [address] + [place] [address] RADHA JENSEN Unavailable . + [place] [address] Care Team Providers Name Role Phone SHERIDAN BERG, TITO Dorman Attending Unavailable MALCOLM HAWKINS, DR. QUIJANO Primary Care Unavailable MALCOLM HAWKINS, DR. QUIJANO Attending Unavailable MALCOLM HAWKINS, DR. QUIJANO Primary Care Unavailable TITO SWARTZ MD Attending Unavailable MALCOLM HAWKINS, DR. QUIJANO Primary Care Unavailable TITO SWARTZ MD Attending Unavailable MALCOLM HAWKINS, DR. QUIJANO Primary Care Unavailable ITTO SWARTZ MD Attending Unavailable MALCOLM HAWKINS, DR. QUIJANO Primary Care Unavailable Paul Harris PA-C Attending Unavailable Samm Davies Primary Care Unavailable Tito Swartz Attending Unavailable Samm Davies Primary Care Unavailable Tito Swartz Referring Unavailable Tito Swartz Admitting Unavailable Tito Swartz Attending Unavailable Samm Davies Primary Care Unavailable Tito Swartz Referring Unavailable Jaguar Neumann Consulting Unavailable Jesse, Osvaldo Chi Admitting Unavailable Jesse, Osvaldo Chi Attending Unavailable Jsese, Osvaldo Chi Referring Unavailable Samm Davies Primary Care Unavailable Jaguar Neumann Consulting Unavailable Dc Schilling Attending Unavailable Jose Sands Referring Unavailable Jaguar Neumann Attending Unavailable Samm Davies Primary Care Unavailable Jaguar Neumann Referring Unavailable Tito Swartz Attending Unavailable Tito Swartz Referring Unavailable Samm Davies Primary Care Unavailable Jesse, Osvaldo Chi Consulting Unavailable Jaguar Neumann Attending Unavailable Jaguar Neumann Referring Unavailable Samm Davies Primary Care Unavailable PROBLEMS PROBLEMS DATE TYPE CONDITION / CODE ATTENDING STATUS SOURCE 03/13/2018 Admitting Infection and SHERIDAN BERG, Active [facility] Diagnosis inflammatory TITO Winters reaction due to Repository internal right knee prosthesis, initial encounter / T84.53XA(ICD-10) 03/13/2018 Admitting Essential (primary) MALCOLM DO, Active [facility] Diagnosis hypertension / DR. SAMM Winters I10(ICD-10) Repository 03/04/2018 Unknown Z96.651 - Presence Nel, Active [place] of right artificial [facility] knee joint / Hospital Z96.651(ICD-10) Repository 03/04/2018 Unknown B95.8 - Unspecified Nel, Active [place] staphylococcus as [facility] the cause of Hospital diseases classified Repository elsewhere / B95.8(ICD-10) 02/16/2018 Unknown T84.53XD - Infection Jesse, Osvaldo Chi Active [place] and inflammatory Community reaction due to Hospital internal right knee Repository prosthesis, subsequent encounter / T84.53XD(ICD-10) 02/16/2018 Unknown T84.59XA - Infection Jesse, Osvaldo Chi Active [facility] and inflammatory Community reaction due to Hospital other internal joint Repository prosthesis, initial encounter / T84.59XA(ICD-10) 02/16/2018 Unknown Z96.659 - Presence Jesse, Osvaldo Chi Active [facility] of unspecified Community artificial knee Hospital joint / Repository Z96.659(ICD-10) 02/01/2018 Unknown G89.18 - Other acute Tito Swartz Active [facility] postprocedural pain Community / G89.18(ICD-10) Hospital Repository 02/13/2018 Unknown Z01.810 - Encounter Dc Schilling Active [facility] for preprocedural Community cardiovascular Hospital examination / Repository Z01.810(ICD-10) 01/18/2018 Unknown M25.461 - Effusion, Tito Swartz Active [facility] right knee / Community M25.461(ICD-10) Hospital Repository 07/04/2017 Unknown M17.11 - Unilateral [place], Active [place] primary Paul [facility] osteoarthritis, Hospital right knee / Repository M17.11(ICD-10) PROCEDURES PROCEDURES No Procedure Records FoundRESULTS RESULTS LIPID Collected: 03/13/2018 Status: F Source: [facility] 8:36 AM [facility] REPOSITORY TYPE CODE TESTS RESULT OUT OF REFERENCE UNITS RANGE LAB CHOL(LOINC 0-200 mg/dL ) Cholesterol 132 Result Comment: Cholesterol Reference Interval: Less than 200 Desirable 200-239 Borderline high risk 240 and above High risk LAB TRIG(LOINC) 0-150 mg/dL Triglycerides 56 Result Comment: Triglyceride Reference Interval: Less than 150 Normal 150-199 Borderline high risk 200-499 High risk 500 or higher Very high risk LAB HD(LOINC) 40-60 mg/dL HDL Cholesterol 49 LAB LDL(LOINC) 0-130 mg/dL LDL Cholesterol 72 Performed By: #### LIPID, CMP, GFR #### [place] [id number] [place] [address] CMP Collected: 03/13/2018 Status: F Source: [facility] 8:36 AM [facility] REPOSITORY TYPE CODE TESTS RESULT OUT OF REFERENCE UNITS RANGE LAB GLU(LOINC) 70-105 mg/dL Glucose Level 92 LAB NA(LOINC) 136-145 mmol/L Sodium Level 141 LAB K(LOINC) 3.5-5.1 mmol/L Potassium Level 4.2 LAB CL(LOINC) 98-107 mmol/L Chloride 104 LAB CO2(LOINC) 22-29 mmol/L CO2 29 LAB EBAL(LOINC mEq/L ) Electrolyte Balance 8.0 LAB BUN(LOINC) 7-18 mg/dL BUN 16 LAB CRE(LOINC) 0.70-1.30 mg/dL Creatinine Lvl (s) 0.79 LAB BC(LOINC) 7-27 ratio BUN/Creatinine 20 Ratio LAB CA(LOINC) 8.4-10.2 mg/dL Calcium Lvl 8.7 LAB PROT(LOINC 6.4-8.2 G/dL ) Total Protein 6.8 LAB ALB(LOINC) 3.5-5.0 G/dL Albumin Level 3.7 LAB GLB(LOINC) G/dL Globulin 3.1 LAB AG(LOINC) 1.1-2.5 ratio A/G Ratio 1.2 LAB BILT(LOINC 0.2-1.0 mg/dL ) Bili Total 0.3 LAB AP(LOINC) 40-135 U/L Alk Phos 90 LAB AST(LOINC) 10-40 U/L AST/SGOT 14 LAB ALT(LOINC) 10-35 U/L ALT/SGPT 27 Performed By: #### LIPID, CMP, GFR #### [address] [address] .GFR Collected: 03/13/2018 Status: F Source: [facility] 8:36 AM [facility] REPOSITORY TYPE CODE TESTS RESULT OUT OF REFERENCE UNITS RANGE LAB GFRAA(LOINC ml/min/1.73 ) sqm GFR 124 Kyr[place]z Result Comment: GFR Population mean for , Non- Americans Ages 20-29 = 116 mL/min/1.73 sq.m. Ages 30-39 = 107 mL/min/1.73 sq.m. Ages 40-49 = 99 mL/min/1.73 sq.m. Ages 50-59 = 93 mL/min/1.73 sq.m. Ages 60-69 = 85 mL/min/1.73 sq.m. Ages 70+ = 75 mL/min/1.73 sq.m. Chronic Kidney Disease: Less than 60 mL/min/1.73 square meters End Stage Renal Disease: Less than 15 mL/min/1.73 square meters LAB GFRNO(LOINC) ml/min/1.73sqm GFR Non- 103 Result Comment: GFR Population mean for , Non- Americans Ages 20-29 = 116 mL/min/1.73 sq.m. Ages 30-39 = 107 mL/min/1.73 sq.m. Ages 40-49 = 99 mL/min/1.73 sq.m. Ages 50-59 = 93 mL/min/1.73 sq.m. Ages 60-69 = 85 mL/min/1.73 sq.m. Ages 70+ = 75 mL/min/1.73 sq.m. Chronic Kidney Disease: Less than 60 mL/min/1.73 square meters End Stage Renal Disease: Less than 15 mL/min/1.73 square meters Performed By: #### LIPID, CMP, GFR #### [address] [address] CBC Collected: 03/13/2018 Status: F Source: [facility] 8:36 AM [facility] REPOSITORY TYPE CODE TESTS RESULT OUT OF REFERENCE UNITS RANGE LAB WBC(LOINC) 4.60-10.80 10 3/mcL WBC 4.90 LAB RBCCT(LOINC 4.04-6.13 10 6/mcL ) Low RBC 3.89 LAB HGB(LOINC) 14.0-18.0 G/dL Low Hgb 11.1 LAB HCT(LOINC) 42.0-52.0 % Low Hct 33.2 LAB MCV(LOINC) 80.0-94.0 fL MCV 85.3 LAB MCH(LOINC) 27.0-31.2 pg MCH 28.4 LAB MCHC(LOINC) 31.8-35.4 G/dL MCHC 33.3 LAB RDW(LOINC) 11.5-14.5 % High RDW 15.8 LAB PLT(LOINC) 130-400 10 3/mcL Platelet 152 LAB MPV(LOINC) 7.4-10.4 fL MPV 7.7 Performed By: #### CBC, ADIFF, ANEU #### [address] [address] #### ESR, CRP #### [address] [address] .AUTO DIFF Collected: 03/13/2018 Status: F Source: [facility] 8:36 AM [facility] REPOSITORY TYPE CODE TESTS RESULT OUT OF REFERENCE UNITS RANGE LAB RAAD(LOINC) 37.0-80.0 % Neutrophil % 53.9 LAB LYM(LOINC) 10.0-50.0 % Lymphocyte % 34.0 LAB MON(LOINC) 1.7-13.0 % Monocyte % 7.4 LAB EO(LOINC) 0.0-7.0 % Eosinophil % 4.5 LAB BAS(LOINC) 0.0-2.5 % Basophil % 0.2 LAB ABLYM(LOIN 0.77-3.85 10 3/mcL C) Lymphocyte, 1.70 Absolute LAB CARMEN(LOINC 0.15-1.00 10 3/mcL ) Monocyte, 0.40 Absolute LAB AEOS(LOINC 0.00-0.40 10 3/mcL ) Eosinophil, 0.20 Absolute LAB ABAS(LOINC 0.00-0.19 10 3/mcL ) Basophil, 0.00 Absolute Performed By: #### CBC, ADIFF, ANEU #### [address] [address] #### ESR, CRP #### [address] [address] .NEUABS Collected: 03/13/2018 Status: F Source: [facility] 8:36 AM [facility] REPOSITORY TYPE CODE TESTS RESULT OUT OF REFERENCE UNITS RANGE LAB ANEU(LOINC) 2.85-6.16 10 3/mcL Low Neutrophil, 2.60 Absolute Performed By: #### CBC, ADIFF, ANEU #### [address] [address] #### ESR, CRP #### [address] [address] ESR Collected: 03/13/2018 Status: F Source: [facility] 8:36 AM [facility] REPOSITORY TYPE CODE TESTS RESULT OUT OF REFERENCE UNITS RANGE LAB ESR(LOINC) 0-20 mm/hr Erythrocyte Sed Rate 19 Performed By: #### CBC, ADIFF, ANEU #### [address] [address] #### ESR, CRP #### [address] [address] CRP Collected: 03/13/2018 Status: F Source: [facility] 8:36 AM [facility] REPOSITORY TYPE CODE TESTS RESULT OUT OF REFERENCE UNITS RANGE LAB CRP(LOINC) <=0.80 mg/dL High C-Reactive 0.97 Protein Performed By: #### CBC, ADIFF, ANEU #### [address] [address] #### ESR, CRP #### [address] [address] ERYTHROCYTE SED RATE Collected: 03/06/2018 Status: F Source: [facility] 2:12 PM [facility] REPOSITORY TYPE CODE TESTS RESULT OUT OF RANGE REFERENCE UNITS LAB L102.0000 0-20 mm/hr Normal SED RATE 9 Performed By: #### L101.9900, L100.0500 #### [facility] [address] [place], [address] CBC-COMPLETE BLOOD CNT Collected: 03/06/2018 Status: F Source: [place] NO DIFF 2:12 PM [facility] REPOSITORY TYPE CODE TESTS RESULT OUT OF RANGE REFERENCE UNITS LAB L100.1000 4.4-11.0 K/mm3 Normal WBC 5.8 LAB L100.1200 4.6-6.2 M/mm3 Low RBC 4.24 LAB L100.1300 13.0-16.5 g/dl Low HGB 11.6 LAB L100.1400 40-54 % Low HCT 35.4 LAB L100.1500 80-94 fL Normal MCV 83.5 LAB L100.1600 27.0-32.0 pg Normal MCH 27.4 LAB L100.1700 32-36 g/gl Normal MCHC 32.8 LAB L100.1810 11.6-14.6 % Normal RDW CV 14.6 LAB L100.1820 35.1-43.9 fl Normal RDW SD 42.7 LAB L100.1900 150-450 K/mm3 Normal PLT 154 LAB L100.2000 6.2-12.0 fl Normal MPV 9.6 Performed By: #### L101.9900, L100.0500 #### [facility] [address] [place], [address] BASIC METABOLIC Collected: 03/06/2018 Status: F Source: [place] PROFILE (BMP) 2:12 PM [facility] REPOSITORY TYPE CODE TESTS RESULT OUT OF RANGE REFERENCE UNITS LAB L501.0100 74-106 mg/dL Normal GLU 88 Result Comment: Please note revised GLUCOSE reference range effective 2017. LAB L501.1000 7-18 mg/dL Normal BUN 13 LAB L501.1100 0.70-1.30 mg/dL Normal CREAT,SERUM 0.84 Result Comment: The validity of the calculated GFR AND GFRAA in patients over 70 years has not been determined. Clinical correlation is essential. LAB L501.1110 >60 mL/min Normal EST GFR 102 Result Comment: Non- GFR Calc LAB L501.1115 >60 mL/min Normal EST GFR - AA 123 Result Comment: GFR Calc LAB L501.1300 10-20 RATIO Normal BUN/CRE 15.5 LAB L501.2200 8.5-10.1 mg/dL CA Normal 9.2 LAB L501.5300 136-145 mmol/L NA Normal 140 LAB L501.5600 3.5-5.1 mmol/L K Normal 4.3 LAB L501.5900 98-107 mmol/L CL Normal 104 LAB L501.6100 21.0-32.0 mmol/L Normal CO2 29.0 LAB L501.6200 5-15 Normal GAP 7 Performed By: #### L500.2500 #### [facility] [address] [place], [place], [address] CBC W/DIFF, AUTOMATED Collected: 02/26/2018 Status: F Source: [place] 10:19 AM [facility] REPOSITORY TYPE CODE TESTS RESULT OUT OF RANGE REFERENCE UNITS LAB L100.1000 4.4-11.0 K/mm3 Normal WBC 7.2 LAB L100.1200 4.6-6.2 M/mm3 Low RBC 4.40 LAB L100.1300 13.0-16.5 g/dl Low HGB 12.1 LAB L100.1400 40-54 % Low HCT 36.8 LAB L100.1500 80-94 fL Normal MCV 83.6 LAB L100.1600 27.0-32.0 pg Normal MCH 27.5 LAB L100.1700 32-36 g/gl Normal MCHC 32.9 LAB L100.1810 11.6-14.6 % Normal RDW CV 13.9 LAB L100.1820 35.1-43.9 fl Normal RDW SD 41.7 LAB L100.1900 150-450 K/mm3 Normal PLT 227 LAB L100.2000 6.2-12.0 fl Normal MPV 9.3 LAB L100.2100 47-70 % Normal NEUT% 54.1 LAB L100.2200 19-41 % Normal LY% 34.1 LAB L100.2300 0-10 % Normal MONO% 8.4 LAB L100.2400 0-5 % Normal EO% 3.2 LAB L100.2500 0-1 % Normal BASO% 0.1 LAB L100.2550 0.0-0.9 % Normal IM GRAN % 0.100 Result Comment: IG% - Immature Granulocytes (promyelocytes, myelocytes and metamyelocytes) > 1% indicates that a LEFT SHIFT is Present. LAB L100.2620 2.0-7.7 X10 3/uL Normal Absolute Neut 3.9 LAB L100.2720 0.83-4.51 X10 3/ul Normal Absolute Lymph 2.47 Performed By: #### L100.0100, L101.9900 #### [facility] [address] [place], [address] ERYTHROCYTE SED RATE Collected: 02/26/2018 Status: F Source: [place] 10:19 AM [facility] REPOSITORY TYPE CODE TESTS RESULT OUT OF RANGE REFERENCE UNITS LAB L102.0000 0-20 mm/hr Normal SED RATE 13 Performed By: #### L100.0100, L101.9900 #### [facility] [address] [place], [address] BASIC METABOLIC Collected: 02/26/2018 Status: F Source: [place] PROFILE (BMP) 10:19 AM [facility] REPOSITORY TYPE CODE TESTS RESULT OUT OF RANGE REFERENCE UNITS LAB L501.0100 74-106 mg/dL Normal GLU 94 Result Comment: Please note revised GLUCOSE reference range effective 2017. LAB L501.1000 7-18 mg/dL High BUN 21 LAB L501.1100 0.70-1.30 mg/dL Normal CREAT,SERUM 0.97 Result Comment: The validity of the calculated GFR AND GFRAA in patients over 70 years has not been determined. Clinical correlation is essential. LAB L501.1110 >60 mL/min Normal EST GFR 86 Result Comment: Non- GFR Calc LAB L501.1115 >60 mL/min Normal EST GFR - AA 104 Result Comment: GFR Calc LAB L501.1300 10-20 RATIO High BUN/CRE 21.6 LAB L501.2200 8.5-10.1 mg/dL CA Normal 9.4 LAB L501.5300 136-145 mmol/L NA Normal 136 LAB L501.5600 3.5-5.1 mmol/L K Normal 4.4 LAB L501.5900 98-107 mmol/L CL Normal 101 LAB L501.6100 21.0-32.0 mmol/L Normal CO2 27.0 LAB L501.6200 5-15 Normal GAP 8 Performed By: #### L500.2500 #### [facility] [address] [place], [address] INITAL EVALUATION (1) Observed: 02/26/2018 Status: F Source: [facility] - PT 10:12 AM [facility] REPOSITORY [facility] Physical Therapy [facility] [address] [place] [address] Fax REHABILITATION SERVICES INITIAL EVALUATION MR#: [id number] Acct: [id number] Name: NIRAJ JENSEN Rep #: [id number] : 1965 52 From: Jarad Obando PT, ATC Referring Dr.: Tito Swartz MD Status: REG RCR Insurance: [employer] INSURANCE Patient's Visit Information NIRAJ JENSEN is a 52 year old M referred to Physical Therapy by Tito Swartz MD with a diagnosis of R knee surgery. Date of Evaluation: 02/26/18 Physical Therapist: Jarad Obando PT, - Visit Plan Frequency: 1x/Week Duration: 2 Weeks Plan: Issue HEP for R knee stretching and strengthening ex's - Subjective Subjective: Pt reports he had a R TKA one year ago, but had a staff infection occur and had to have his prosthesis removed on 01/29/18. Pt reports he was in the hospital for 2 1/2 weeks due to the infection. Pt reports he has a antibiotic inserted in his R knee now and they are monitoring his white blood cell levels until they get down to a normal level so they can do the knee replacement again. Pt reports he is in a lot of pain at this time. Pt reports he has significant difficulty with sleep at this time secondary to pain. Pt also notes he has to ambulate with a walker at this time secondary to unsteadiness. Pt reports he is unable to FWB at this time secondary to pain. Pt reports he is to see his doctor 03/11/18 for a followup visit to see where he is at in the healing process. 6/10 at rest, 8/10 at worst (walking and getting in/out of vehicles) - Pain R knee Pain Intensity (Out of 10): 6 Pain Intensity Range: 8 - Objective Neuro: B LE sensation is WNL to light touch. B achilles reflex= 2/3. Girth at joint line: L knee 40 cm, R knee 48 cm. ROM: R knee 0-20-85, L knee 0-125 degrees. MMT: L knee 5/5 throughout. R knee 3/5 throughout - Goals Goal 1:: I with HEP in 1-2 visits Goal Time Frame: 2 Weeks - Rehabilitation Potential Physical Therapy Diagnosis: R knee pain, weakness, and limited ROM secondary to a staff infection of the R knee. Rehabilitation Potential: Good - Anticipated Interventions Patient/Client Instruction: Educate patient on: Condition, Plan of Care For the Purpose of:: To improve self management Therapeutic Exercise to Include: Strength training, Endurance training, Balance training, Flexibilty training, Gait and locomotor training, Passive ROM, Active ROM, Dynamic Lumbar Stabilization For the Purpose of:: To decrease pain, To increase ROM, To improve muscle performance and motor function Cryotherapy (ice pack, ice massage): Yes For the Purpose of:: To decrease pain Thank you for the opportunity to evaluate your patient. For Medicare and Medicare HMO plans, please review the plan of care and approve it. It will need to be FAXED BACK to us at [phone] for Medicare purposes. Please let me know if there are questions or concerns regarding this plan of care. Physician Signature: Date: <Electronically signed by Jarad Obando PT, ATC> 02/26/18 1012 CC: Samm Davies DO; Tito Swartz MD [facility] Signed For Medicare only, by signing this I certify the plan of care. Physicians Signature Date CBC W/DIFF, AUTOMATED Collected: 02/23/2018 Status: F Source: [place] 6:28 AM [facility] REPOSITORY TYPE CODE TESTS RESULT OUT OF RANGE REFERENCE UNITS LAB L100.1000 4.4-11.0 K/mm3 Normal WBC 5.4 LAB L100.1200 4.6-6.2 M/mm3 Low RBC 4.49 LAB L100.1300 13.0-16.5 g/dl Normal HGB 13.8 LAB L100.1400 40-54 % Normal HCT 41.6 LAB L100.1500 80-94 fL Normal MCV 92.7 LAB L100.1600 27.0-32.0 pg Normal MCH 30.7 LAB L100.1700 32-36 g/gl Normal MCHC 33.2 LAB L100.1810 11.6-14.6 % Normal RDW CV 13.5 LAB L100.1820 35.1-43.9 fl High RDW SD 45.5 LAB L100.1900 150-450 K/mm3 Low PLT 113 LAB L100.2000 6.2-12.0 fl Normal MPV 9.3 LAB L100.2100 47-70 % Normal NEUT% 55.1 LAB L100.2200 19-41 % Normal LY% 24.3 LAB L100.2300 0-10 % High MONO% 16.6 LAB L100.2400 0-5 % Normal EO% 3.1 LAB L100.2500 0-1 % Normal BASO% 0.7 LAB L100.2550 0.0-0.9 % Normal IM GRAN % 0.200 Result Comment: IG% - Immature Granulocytes (promyelocytes, myelocytes and metamyelocytes) > 1% indicates that a LEFT SHIFT is Present. LAB L100.2620 2.0-7.7 X10 3/uL Normal Absolute Neut 3.0 LAB L100.2720 0.83-4.51 X10 3/ul Normal Absolute Lymph 1.32 Performed By: #### L100.0100, L101.9900 #### [facility] [address] [place], [place], [address] ERYTHROCYTE SED RATE Collected: 02/23/2018 Status: F Source: [place] 6:28 AM [facility] REPOSITORY TYPE CODE TESTS RESULT OUT OF RANGE REFERENCE UNITS LAB L102.0000 0-20 mm/hr Normal SED RATE 6 Performed By: #### L100.0100, L101.9900 #### [facility] [address] [place], [place], [address] BASIC METABOLIC Collected: 02/23/2018 Status: F Source: [facility] PROFILE (BMP) 6:28 AM [facility] REPOSITORY TYPE CODE TESTS RESULT OUT OF RANGE REFERENCE UNITS LAB L501.0100 74-106 mg/dL High GLU 121 Result Comment: Fasting Glucose result from 100 to 125 mg/dL suggests IMPAIRED HOMEOSTASIS per A.D.A. criteria. Please note revised GLUCOSE reference range effective 2017. LAB L501.1000 7-18 mg/dL Normal BUN 17 LAB L501.1100 0.70-1.30 mg/dL Normal CREAT,SERUM 0.99 Result Comment: The validity of the calculated GFR AND GFRAA in patients over 70 years has not been determined. Clinical correlation is essential. LAB L501.1110 >60 mL/min Normal EST GFR 84 Result Comment: Non- GFR Calc LAB L501.1115 >60 mL/min Normal EST GFR - AA 102 Result Comment: GFR Calc LAB L501.1255 ml/min Normal Estimated CRCL 77.87 LAB L501.1300 10-20 RATIO Normal BUN/CRE 17.2 LAB L501.2200 8.5-10 mg/dL Normal .1 CA 8.5 LAB L501.5300 136-14 mmol/L Normal 5 NA 138 LAB L501.5600 3.5-5. mmol/L Normal 1 K 4.3 LAB L501.5900 98-107 mmol/L Normal CL 104 LAB L501.6100 21.0-3 mmol/L Normal 2.0 CO2 24.0 LAB L501.6200 5-15 Normal GAP 10 Performed By: #### L500.2500 #### [facility] [address] [place], [address] CBC W/DIFF, AUTOMATED Collected: 02/16/2018 Status: F Source: [place] 6:55 AM [facility] REPOSITORY TYPE CODE TESTS RESULT OUT OF RANGE REFERENCE UNITS LAB L100.1000 4.4-11.0 K/mm3 Normal WBC 6.4 LAB L100.1200 4.6-6.2 M/mm3 Low RBC 4.18 LAB L100.1300 13.0-16.5 g/dl Low HGB 11.2 LAB L100.1400 40-54 % Low HCT 36.0 LAB L100.1500 80-94 fL Normal MCV 86.1 LAB L100.1600 27.0-32.0 pg Low MCH 26.8 LAB L100.1700 32-36 g/gl Low MCHC 31.1 LAB L100.1810 11.6-14.6 % Normal RDW CV 13.6 LAB L100.1820 35.1-43.9 fl Normal RDW SD 42.5 LAB L100.1900 150-450 K/mm3 Normal PLT 363 LAB L100.2000 6.2-12.0 fl Normal MPV 9.1 LAB L100.2100 47-70 % Normal NEUT% 47.1 LAB L100.2200 19-41 % Normal LY% 36.4 LAB L100.2300 0-10 % High MONO% 11.5 LAB L100.2400 0-5 % Normal EO% 4.4 LAB L100.2500 0-1 % Normal BASO% 0.3 LAB L100.2550 0.0-0.9 % Normal IM GRAN % 0.300 Result Comment: IG% - Immature Granulocytes (promyelocytes, myelocytes and metamyelocytes) > 1% indicates that a LEFT SHIFT is Present. LAB L100.2620 2.0-7.7 X10 3/uL Normal Absolute Neut 3.0 LAB L100.2720 0.83-4.51 X10 3/ul Normal Absolute Lymph 2.32 Performed By: #### L100.0100, L101.9900 #### [facility] [address] [place], [place], [address] ERYTHROCYTE SED RATE Collected: 02/16/2018 Status: F Source: [place] 6:55 AM [facility] REPOSITORY TYPE CODE TESTS RESULT OUT OF RANGE REFERENCE UNITS LAB L102.0000 0-20 mm/hr High SED RATE 47 Performed By: #### L100.0100, L101.9900 #### [facility] [address] [place], [place], [address] BASIC METABOLIC Collected: 02/16/2018 Status: F Source: [place] PROFILE (BMP) 6:55 AM [facility] REPOSITORY TYPE CODE TESTS RESULT OUT OF RANGE REFERENCE UNITS LAB L501.0100 74-106 mg/dL Normal GLU 102 Result Comment: Fasting Glucose result from 100 to 125 mg/dL suggests IMPAIRED HOMEOSTASIS per A.D.A. criteria. Please note revised GLUCOSE reference range effective 2017. LAB L501.1000 7-18 mg/dL Normal BUN 14 LAB L501.1100 0.70-1.30 mg/dL Normal CREAT,SERUM 0.89 Result Comment: The validity of the calculated GFR AND GFRAA in patients over 70 years has not been determined. Clinical correlation is essential. LAB L501.1110 >60 mL/min Normal EST GFR 95 Result Comment: Non- GFR Calc LAB L501.1115 >60 mL/min Normal EST GFR - AA 115 Result Comment: GFR Calc LAB L501.1255 ml/min Normal Estimated CRCL 86.62 LAB L501.1300 10-20 RATIO Normal BUN/CRE 15.7 LAB L501.2200 8.5-10 mg/dL Normal .1 CA 8.8 LAB L501.5300 136-14 mmol/L Low 5 NA 133 LAB L501.5600 3.5-5. mmol/L Normal 1 K 4.0 LAB L501.5900 98-107 mmol/L Normal CL 99 LAB L501.6100 21.0-3 mmol/L Normal 2.0 CO2 27.0 LAB L501.6200 5-15 Normal GAP 7 Performed By: #### L500.2500 #### [facility] [address] [place], [address] DISCHARGE SUMMARY Observed: 02/13/2018 Status: F Source: [place] 9:36 PM [facility] RE[facility] Medical Records Department [address] [place] [address] Discharge Summary 02/13/18 2133 MR#: [id number] Acct: [id number] Name: NIRAJ JENSEN Mauricio Rep #: [id number] : 1965 52 From: Osvaldo Molina MD PCP: Samm Davies DO Status: ADM IN Y Location: [place] [address] Discharge Date and Diagnosis - Problem List Patient Problems: Active and Suspected Problems Osteoarthritis of knees, bilateral (Acute) Date of Admission: 02/01/18 Date of Discharge: 02/16/18 - Primary Discharge Diagnosis Active and Suspected Problems Osteoarthritis of knees, bilateral (Acute) - Secondary Discharge Diagnosis Chronic Problems Hypertension (Chronic) Hospital Course and Treatment Imaging Results: 02/06/18 13:45 Diet: Cardiac/Low Cholesterol Is pt able to select menu?: Yes Operations: None Procedures: None Summary of Care Provided: The patient is a 52 year old Male with below past medical history hospitalized for infected right prosthetic knee, underwent explant right total knee with placement of antibiotic spacer 01/29/[address] Swartz, admitted to TCU with debility, here for rehabilitation, strengthening, intravenous antibiotics, prior to discharge home with spouse. Will need further right knee surgery with Dr. Swartz in near future. Culture grew staph lugdunensis, Dr. Neumann recommend IV Vancomycin, transitioned to PO Linezolid. Discharge home alone, with outpatient physical therapy. Patient Problems: Active and Suspected Problems Osteoarthritis of knees, bilateral (Acute) - Physical Exam Vital Signs Temp Pulse Resp BP Pulse Ox 96.8 F L 72 16 131/76 H 99 02/13/18 16:00 02/13/18 16:00 02/13/18 16:00 02/13/18 16:00 02/13/18 16:00 Oxygen Delivery Method Room Air Weight: 103.107 kg Body Mass Index (BMI) 37.3 Intake and Output for Last 24 Hours Intake Total 760 / 760 680 / 680 840 / 840 Balance 760 / 760 680 / 680 840 / 840 Discharge Diet: No Restrictions Discharge Activity: Return to Normal Activity, May Shower, Use Walker Weight Bearing Status: Weight bearing as tolerated Call your doctor if you observe: Fever of 101 or Higher, Inability to urinate, Inability to have a bowel movement, Shortness of breath, Chest pain, Uncontrolled pain Home Medications: Medications to take at Discharge Lisinopril [Prinivil] 10 mg PO DAILY 12/25/16 Acetaminophen [Tylenol] 1,000 mg PO Q8 02/01/18 Aspirin [Aspirin, Baby] 81 mg PO BIDCM tab.chew 02/13/18 Iron Polysaccharide Complex [Ferrex 150] 150 mg PO DAILYCM #30 capsule 02/13/18 Linezolid [Zyvox] 600 mg PO BID #60 tablet 02/13/18 Nystatin 500,000 unit PO 4X/DAY udc 02/13/18 Oxycodone [Oxyir] 5 - 10 mg PO Q4H PRN PRN 5 Days #30 tab 02/13/18 Polyethylene Glycol 3350 [Miralax] 17 gm PO DAILY #30 packet 02/13/18 Following Prescrptions Were Given to Patient: Oxycodone [Oxyir] 5 - 10 mg PO Q4H PRN PRN 5 Days #30 tab PRN Reason: Mod-Severe Pain (-01/09) Iron Polysaccharide Complex [Ferrex 150] 150 mg PO DAILYCM #30 capsule Polyethylene Glycol 3350 [Miralax] 17 gm PO DAILY #30 packet Linezolid [Zyvox] 600 mg PO BID #60 tablet Primary Care Physician: Samm Davies DO [Primary Care Provider] - Please follow up with your Primary Care Physician in: 1 week. Please Follow Up With: AZRA Davila When: 02/11/18 Please Follow Up With: Jaguar Neumann MD When: 2 weeks. Disposition: Home Minutes spent on discharge:: 30 Patient Condition:: Stable Medical Necessity - Tobacco Use Smoking Status: Former smoker Tobacco Use: Non-smoker Meaningful Use Info Meaningful Use Diagnoses (Choose all that apply): None applicable 02/13/182135 <Electronically signed by Osvaldo Molina MD> Date Osvaldo Molina MD Cosigner Signature (if applicable): Date CC: Samm Davies DO; Osvaldo Molina MD Signed DISCHARGE INSTRUCTION Observed: 02/13/2018 Status: F Source: [place] 9:33 PM [facility] Medical Records Department [address] [place] [address] Instructions for Home/Discharge Instructions 02/13/182130 MR#: [id number] Acct: [id number] Name: NIRAJ JENSEN Rep #: [id number] : 1965 52 From: Osvaldo Molina MD PCP: Samm Davies DO Status: ADM IN - Discharge Diagnoses Current Active Problems: Current Active and Chronic Problems Hypertension (Chronic) Osteoarthritis of knees, bilateral (Acute) You will use the following diet at home:: No restrictions, Regular Your food should be the consistency of: Regular Your liquids should be the consistency of: Regular/Thin Discharge Activity: Return to Normal Activity, May Shower, Use Walker Weight Bearing Status: Weight bearing as tolerated Call your doctor if you observe: Fever of 101 or Higher, Inability to urinate, Inability to have a bowel movement, Shortness of breath, Chest pain, Uncontrolled pain Allergies/Adverse Reactions: Allergies No Known Allergies Allergy (Verified 01/25/18 13:13) Medications to take at Discharge Lisinopril [Prinivil] 10 mg PO DAILY 12/25/16 Acetaminophen [Tylenol] 1,000 mg PO Q8 02/01/18 Aspirin [Aspirin, Baby] 81 mg PO BIDCM tab.chew 02/13/18 Iron Polysaccharide Complex [Ferrex 150] 150 mg PO DAILYCM #30 capsule 02/13/18 Linezolid [Zyvox] 600 mg PO BID #60 tablet 02/13/18 Nystatin 500,000 unit PO 4X/DAY udc 02/13/18 Oxycodone [Oxyir] 5 - 10 mg PO Q4H PRN PRN 5 Days #30 tab 02/13/18 Polyethylene Glycol 3350 [Miralax] 17 gm PO DAILY #30 packet 02/13/18 The following prescriptions were given: Oxycodone [Oxyir] 5 - 10 mg PO Q4H PRN PRN 5 Days #30 tab PRN Reason: Mod-Severe Pain (4-01/09) Iron Polysaccharide Complex [Ferrex 150] 150 mg PO DAILYCM #30 capsule Polyethylene Glycol 3350 [Miralax] 17 gm PO DAILY #30 packet Linezolid [Zyvox] 600 mg PO BID #60 tablet Primary Care Physician: Samm Davies DO [Primary Care Provider] - Please follow up with your Primary Care Physician in: 1 week. Test Results: Test results from this visit will be discussed in further detail at your follow-up appointment, if applicable. Please Follow Up With: AZRA Davila When: 02/11/18 Please Follow Up With: Jaguar Neumann MD When: 2 weeks. Proposed Discharge Date: 02/16/18 02/13/182132 <Electronically signed by Osvaldo Molina MD> Date Osvaldo Molina MD CC: Samm Davies DO; Jaguar Neumann MD VANCOMYCIN, TROUGH Collected: 02/11/2018 Status: F Source: [place]AYCE[place] LEVEL 7:15 AM [facility] REPOS[facility] Order Comment: Comments: PLEASE DRAW 30MIN PRIOR TO DOSE ON 02/11 @0800 Time Medication is to be Given? 0800 TYPE CODE TESTS RESULT OUT OF REFERENCE UNITS RANGE LAB L501.8820 5.0-15.0 ug/mL High VANCO, TROUGH 22.7 Result Comment: VANCOMYCIN STANDARED DRUG THERAPY TROUGH LEVEL: 5.0 - 15.0 mg/L VANCOMYCIN HIGH INTENSITY THERAPY TROUGH LEVEL: 15.0 - 20.0 mg/L High Intensity therapy recommended for serious life threatening infections include: - Meningitis -Endocarditis -Pneumonia (Ventilator/Healtcare Associated) -Sepsis PLEASE CONTACT PHARMACY SERVICES (#[id number]) FOR INTERPRETATION OF RESULTS. Performed By: #### L501.8820 #### [facility] [address] [place], [address] CBC W/DIFF, AUTOMATED Collected: 02/09/2018 Status: F Source: [place] 6:00 AM [facility] Order Comment: SPECIMEN OBTAINED FROM LINE DRAW TYPE CODE TESTS RESULT OUT OF RANGE REFERENCE UNITS LAB L100.1000 4.4-11.0 K/mm3 Normal WBC 6.1 LAB L100.1200 4.6-6.2 M/mm3 Low RBC 3.38 LAB L100.1300 13.0-16.5 g/dl Low HGB 9.4 LAB L100.1400 40-54 % Low HCT 28.9 LAB L100.1500 80-94 fL Normal MCV 85.5 LAB L100.1600 27.0-32.0 pg Normal MCH 27.8 LAB L100.1700 32-36 g/gl Normal MCHC 32.5 LAB L100.1810 11.6-14.6 % Normal RDW CV 13.0 LAB L100.1820 35.1-43.9 fl Normal RDW SD 38.8 LAB L100.1900 150-450 K/mm3 Normal PLT 316 LAB L100.2000 6.2-12.0 fl Normal MPV 9.2 LAB L100.2100 47-70 % Normal NEUT% 62.4 LAB L100.2200 19-41 % Normal LY% 23.0 LAB L100.2300 0-10 % Normal MONO% 9.5 LAB L100.2400 0-5 % Normal EO% 4.1 LAB L100.2500 0-1 % Normal BASO% 0.3 LAB L100.2550 0.0-0.9 % Normal IM GRAN % 0.700 Result Comment: IG% - Immature Granulocytes (promyelocytes, myelocytes and metamyelocytes) > 1% indicates that a LEFT SHIFT is Present. LAB L100.2620 2.0-7.7 X10 3/uL Normal Absolute Neut 3.8 LAB L100.2720 0.83-4.51 X10 3/ul Normal Absolute Lymph 1.40 Performed By: #### L100.0100, L101.9900 #### [facility] [address] [place], [place], [address] ERYTHROCYTE SED RATE Collected: 02/09/2018 Status: F Source: [place] 6:00 AM [facility] Order Comment: SPECIMEN OBTAINED FROM LINE DRAW TYPE CODE TESTS RESULT OUT OF RANGE REFERENCE UNITS LAB L102.0000 0-20 mm/hr High SED RATE 74 Performed By: #### L100.0100, L101.9900 #### [facility] [address] [place], [place], [address] BASIC METABOLIC Collected: 02/09/2018 Status: F Source: [place] PROFILE (BMP) 6:00 AM [facility] Order Comment: SPECIMEN OBTAINED FROM LINE DRAW TYPE CODE TESTS RESULT OUT OF RANGE REFERENCE UNITS LAB L501.0100 74-106 mg/dL Normal GLU 94 Result Comment: Please note revised GLUCOSE reference range effective 2017. LAB L501.1000 7-18 mg/dL Normal BUN 16 LAB L501.1100 0.70-1.30 mg/dL Low CREAT,SERUM 0.61 Result Comment: The validity of the calculated GFR AND GFRAA in patients over 70 years has not been determined. Clinical correlation is essential. LAB L501.1110 >60 mL/min Normal EST GFR 147 Result Comment: Non- GFR Calc LAB L501.1115 >60 mL/min Normal EST GFR - AA 178 Result Comment: GFR Calc LAB L501.1255 ml/min Normal Estimated CRCL 126.38 LAB L501.1300 10-20 RATIO High BUN/CRE 26.2 LAB L501.2200 8.5-10 mg/dL .1 CA Normal 8.5 LAB L501.5300 136-14 mmol/L 5 NA Normal 136 LAB L501.5600 3.5-5. mmol/L 1 K Normal 4.1 LAB L501.5900 98-107 mmol/L CL Normal 101 LAB L501.6100 21.0-3 mmol/L 2.0 CO2 Normal 28.0 LAB L501.6200 5-15 GAP Normal 7 Performed By: #### L500.2500 #### [facility] [address] [place], [address] DISCHARGE SUMMARY Observed: 02/04/2018 Status: F Source: [place] 8:05 AM [facility] Medical Records Department [address] [place] [address] Discharge Summary 02/04/18 0800 MR#: [id number] Acct: [id number] Name: NIRAJ JENSEN Rep #: [id number] : 1965 52 From: Paul Harris PA-C PCP: Samm Davies DO Status: DIS IN Y [place] [facility] [id number] Discharge Date and Diagnosis - Problem List Patient Problems: Active and Suspected Problems Osteoarthritis of knees, bilateral (Acute) - Primary Discharge Diagnosis Active and Suspected Problems Infected right total knee - Secondary Discharge Diagnosis Chronic Problems Hypertension (Chronic) Hospital Course and Treatment Summary of Care Provided: Patient is a 52-year-old male who had a previous right total knee arthroplasty in 2017 followed by chronic swelling. Patient was worked up for infection and was noted to have staph on aspiration. After failing conservative measures, the patient opted to proceed with a explant right total knee arthroplasty with placement of antibiotic spacer. The patient underwent the above-stated procedure on January 29, 2018. Patient did receive perioperative antibiotics. Intraoperatively was uneventful. For details please see dictated operative note. The patient was placed in thigh-high teds, bilateral SCDs, remained stable in recovery. Patient was admitted to the 3rd floor at [facility]. The patient's pain was managed with the use of IV and p.o. pain medications. Patient was placed in a knee immobilizer postoperatively. Infectious disease was consulted and will be managing postoperative antibiotics. Patient will be placed on IV antibiotics for 6 weeks. Patient participated in physical therapy. Patient was discharged on postoperative day #3 to transitional care unit at [facility]. Patient was given medications stated below. Patient will follow up with [facility] per postop instructions for reassessment. Patient Problems: Active and Suspected Problems Osteoarthritis of knees, bilateral (Acute) - Physical Exam Vital Signs Temp Pulse Resp BP Pulse Ox 99.1 F 73 18 120/66 100 02/01/18 15:02 02/01/18 15:02 02/01/18 15:02 02/01/18 15:02 02/01/18 15:02 Oxygen Delivery Method Room Air Weight: 106 kg Body Mass Index (BMI) 37.5 Microbiology Past 72 Hours 01/29/18 14:09 Gram Stain - Final Tissue - Other Wound Culture - Final Discharge Diet: No Restrictions Discharge Activity: May Not Drive May shower in (days): 2 Ice area for (Minutes): 20 - every hour while awake. Weight Bearing Status: - - Touchdown weightbearing right lower extremity Keep extremity elevated above heart level: Operative Extremity Additional Activity Instructions:: Wear elastic stockings for 2 weeks after your surgery. Call your doctor if your incision/area has: Continuous Slow Oozing, Sudden Increased Bleeding, Increased Pain/ Swelling, Increased Redness, Foul Smelling Discharge Call your doctor if you observe: Fever of 101 or Higher, Coldness, Increased Pain, Numbness or Tingling, Change in Color, Calf discomfort, Uncontrolled pain Change Dressing in (Days):: 1 - and daily as needed. Home Medications: Medications to take at Discharge Lisinopril [Prinivil] 10 mg PO DAILY 12/25/16 Acetaminophen [Tylenol] 1,000 mg PO Q8 02/01/18 Oxycodone [Oxyir] 5 - 10 mg PO Q4H PRN PRN 5 Days #60 tab 02/01/18 Rivaroxaban [Xarelto] 10 mg PO DAILY@0600 02/01/18 Senna/Docusate Sodium [Senokot-S] 2 tablet PO BID 02/01/18 Vancomycin IV 1,250 mg IV Q8H 02/01/18 Following Prescrptions Were Given to Patient: Oxycodone [Oxyir] 5 - 10 mg PO Q4H PRN PRN 5 Days #60 tab PRN Reason: Mod-Severe Pain (4-01/09) Primary Care Physician: Samm Davies DO [Primary Care Provider] - Please Follow Up With: Paul Harris PA-C When: 02/11/18 @ 1:15 pm Additional Instructions: Follow [facility] postop instructions Medical Necessity - Tobacco Use Smoking Status: Former smoker Meaningful Use Info Meaningful Use Diagnoses (Choose all that apply): None applicable 02/04/18 08 <Electronically signed by Paul Harris PA-C> Date Paul Harris PA-C Cosigner Signature (if applicable): Date CC: Samm Davies DO; Paul OQUENDO Signed VANCOMYCIN, TROUGH Collected: 02/04/2018 Status: F Source: [place] LEVEL 7:10 AM [facility] REPOS[facility] Order Comment: Comments: Draw 30 min prior to vanco dose due at 0800. Time Medication is to be Given? 0800 TYPE CODE TESTS RESULT OUT OF REFERENCE UNITS RANGE LAB L501.8820 5.0-15.0 ug/mL High VANCO, TROUGH 16.2 Result Comment: VANCOMYCIN STANDARED DRUG THERAPY TROUGH LEVEL: 5.0 - 15.0 mg/L VANCOMYCIN HIGH INTENSITY THERAPY TROUGH LEVEL: 15.0 - 20.0 mg/L High Intensity therapy recommended for serious life threatening infections include: - Meningitis -Endocarditis -Pneumonia (Ventilator/Healtcare Associated) -Sepsis PLEASE CONTACT PHARMACY SERVICES (#[id number]) FOR INTERPRETATION OF RESULTS. Performed By: #### L501.8820 #### [facility] [address] [place], [place], [address] CBC W/DIFF, AUTOMATED Collected: 02/02/2018 Status: F Source: [place] 5:55 AM [facility] Order Comment: SPECIMEN OBTAINED FROM LINE DRAW TYPE CODE TESTS RESULT OUT OF RANGE REFERENCE UNITS LAB L100.1000 4.4-11.0 K/mm3 Normal WBC 6.5 LAB L100.1200 4.6-6.2 M/mm3 Low RBC 3.11 LAB L100.1300 13.0-16.5 g/dl Low HGB 8.7 LAB L100.1400 40-54 % Low HCT 26.2 LAB L100.1500 80-94 fL Normal MCV 84.2 LAB L100.1600 27.0-32.0 pg Normal MCH 28.0 LAB L100.1700 32-36 g/gl Normal MCHC 33.2 LAB L100.1810 11.6-14.6 % Normal RDW CV 13.4 LAB L100.1820 35.1-43.9 fl Normal RDW SD 41.0 LAB L100.1900 150-450 K/mm3 Normal PLT 234 LAB L100.2000 6.2-12.0 fl Normal MPV 9.0 LAB L100.2100 47-70 % High NEUT% 70.6 LAB L100.2200 19-41 % Low LY% 18.8 LAB L100.2300 0-10 % Normal MONO% 7.9 LAB L100.2400 0-5 % Normal EO% 2.3 LAB L100.2500 0-1 % Normal BASO% 0.2 LAB L100.2550 0.0-0.9 % Normal IM GRAN % 0.200 Result Comment: IG% - Immature Granulocytes (promyelocytes, myelocytes and metamyelocytes) > 1% indicates that a LEFT SHIFT is Present. LAB L100.2620 2.0-7.7 X10 3/uL Normal Absolute Neut 4.6 LAB L100.2720 0.83-4.51 X10 3/ul Normal Absolute Lymph 1.22 Performed By: #### L100.0100, L101.9900 #### [facility] [address] [place], [address] ERYTHROCYTE SED RATE Collected: 02/02/2018 Status: F Source: [place] 5:55 AM [facility] Order Comment: SPECIMEN OBTAINED FROM LINE DRAW TYPE CODE TESTS RESULT OUT OF RANGE REFERENCE UNITS LAB L102.0000 0-20 mm/hr High SED RATE 83 Performed By: #### L100.0100, L101.9900 #### [facility] [address] [place], [place], [address] BASIC METABOLIC Collected: 02/02/2018 Status: F Source: [place] PROFILE (BMP) 5:55 AM [facility] Order Comment: SPECIMEN OBTAINED FROM LINE DRAW TYPE CODE TESTS RESULT OUT OF RANGE REFERENCE UNITS LAB L501.0100 74-106 mg/dL Normal GLU 97 Result Comment: Please note revised GLUCOSE reference range effective 2017. LAB L501.1000 7-18 mg/dL Normal BUN 8 LAB L501.1100 0.70-1.30 mg/dL Low CREAT,SERUM 0.52 Result Comment: The validity of the calculated GFR AND GFRAA in patients over 70 years has not been determined. Clinical correlation is essential. LAB L501.1110 >60 mL/min Normal EST GFR 177 Result Comment: Non- GFR Calc LAB L501.1115 >60 mL/min Normal EST GFR - AA 215 Result Comment: GFR Calc LAB L501.1255 ml/min Normal Estimated CRCL 148.25 LAB L501.1300 10-20 RATIO BUN/CRE Normal 15.4 LAB L501.2200 8.5-10 mg/dL Low .1 CA 8.2 LAB L501.5300 136-14 mmol/L 5 NA Normal 139 LAB L501.5600 3.5-5. mmol/L 1 K Normal 3.7 LAB L501.5900 98-107 mmol/L CL Normal 104 LAB L501.6100 21.0-3 mmol/L 2.0 CO2 Normal 28.0 LAB L501.6200 5-15 GAP Normal 7 Performed By: #### L500.2500 #### [facility] [address] [place], [address] VANCOMYCIN, TROUGH Collected: 02/01/2018 Status: F Source: KAYCEE LEVEL 11:39 PM [facility] Order Comment: Comments: PLEASE DRAW 30MIN PRIOR TO DOSE ON 02/02 @0000 Time Medication is to be Given? 0000 TYPE CODE TESTS RESULT OUT OF RANGE REFERENCE UNITS LAB L501.8820 5.0-15.0 ug/mL Normal VANCO, TROUGH 14.7 Result Comment: VANCOMYCIN STANDARED DRUG THERAPY TROUGH LEVEL: 5.0 - 15.0 mg/L VANCOMYCIN HIGH INTENSITY THERAPY TROUGH LEVEL: 15.0 - 20.0 mg/L High Intensity therapy recommended for serious life threatening infections include: - Meningitis -Endocarditis -Pneumonia (Ventilator/Healtcare Associated) -Sepsis PLEASE CONTACT PHARMACY SERVICES (#[id number]) FOR INTERPRETATION OF RESULTS. Performed By: #### L501.8820 #### [facility] [address] [place], [address] HISTORY AND PHYSICAL Observed: 02/01/2018 Status: F Source: [place] EXAM 11:16 PM [facility] Medical Records Department [address] [place] [address] History and Physical 02/01/18 2259 MR#: [id number] Acct: [id number] Name: NIRAJ JENSEN Rep #: [id number] : 1965 52 From: Osvaldo Molina MD PCP: Samm Davies DO Status: ADM IN Y Location: [facility] TC9-1 Problem List (1) Hypertension Status: Chronic (2) Osteoarthritis of knees, bilateral Status: Acute (3) Infected prosthetic knee joint Status: Acute History of Present Illness Date of Admission: 02/01/18 Chief Complaint: Here for rehabilitation, strengthening, intravenous antibiotic, prior to discharge home with spouse. The patient is a 52 year old Male with below past medical history with below past medical history significant for Hypertension, osteoarthritis of bilateral knees. 01/09/2017 Patient had right total knee arthroplasty. Swelling, tightness right knee persisted. Patient's job requires standing many hours on concrete. CRP 6.71, ESR 57. Right knee arthrocentesis per Dr. Swartz, culture grew staph, patient on Doxycycline. 01/29/2018 Dr. Swartz performed explant right total knee with placement of antibiotic spacer. Insertion of nonbiodegradable antibiotic delivery system. 01/29/2018 Dr. Neumann noted surgery cultures growing gram positive cocci. Doxycycline stopped. Start IV Vancomycin, recommend 6 weeks of IV antibiotics. Stop date 03/12/2018. Culture grew staph lugdunensis. PICC line placed right upper extremity. 02/01/2018 Admit to TCU with debility, here for rehabilitation, strengthening, intravenous antibiotics, prior to further surgery with Dr. Swartz. Past Medical History Past Medical History (Chronic Problems): Chronic Problems Hypertension (Chronic) Allergies No Known Allergies Allergy (Verified 01/25/18 13:13) Home Medications: Ambulatory Orders Medication Instructions Recorded Lisinopril [Prinivil] 10 mg PO DAILY 12/25/16 Acetaminophen [Tylenol] 1,000 mg PO Q8 02/01/18 Oxycodone [Oxyir] 5 - 10 mg PO Q4H PRN PRN 5 Days 02/01/18 Surgical History: total knee arthroplasty - Right., - - Carpal tunnel release (R), Vasectomy, Right knee arthroscopic surgery, Explant right total knee with placement of antibiotic spacer. Psychiatric History: No pertinent psych hx Lives: Spouse/ Significant Other Smoking Status: Former smoker Tobacco Use: Non-smoker Alcohol: Occasional Drugs: None - *Family History Maternal History Items: No pertinent history Paternal History Items: No pertinent history Review of Systems Constitutional: Denies: Chills, Fever, Weight Change HEENT: Denies: Head Aches, Sinus Congestion, Sinus Drainage Cardiovascular: Denies: Chest Pain, Palpitations Respiratory: Denies: Cough, Shortness of breath at rest, Sputum production Gastrointestinal: Denies: Abdominal Pain, Nausea, Vomiting Genitourinary: Denies: Dysuria Musculoskeletal: Reports: Joint Pain - Right knee pain.. Denies: Joint Tenderness Skin: Denies: Rash, Wounds Neurological: Denies: Numbness, Tingling, Focal weakness Psychiatric: Denies: Anxiety, Depression, Homicidal Ideations, Suicidal Ideations Hematologic/ Lymphatic: Denies: Easy Bruising, Easy Bleeding VTE Information - Inpt Only VTE Present on Admission: No VTE Mechan Device Prophylaxis: Knee High JUAN Hose VTE Pharm Prophylaxis ordered?: Yes Patient Problems: Active and Suspected Problems Osteoarthritis of knees, bilateral (Acute) - Physical Exam General: Alert, Oriented x3, Cooperative HEENT: Atraumatic, PERRLA, EOMI, Normocephalic Neck: Supple, No JVD, Negative Carotid Bruits Lungs: Clear to auscultation, Normal air movement Cardiovascular: Regular rate, No murmurs Abdomen: Bowel Sounds Present, Soft, Non Tender Extremities: No edema, Capillary Refill Less than 3 Seconds Skin: No rashes, No breakdown, Incision - Right knee incision clean, dry, intact. Musculoskeletal: No Tenderness to Palpation of Joints or Extremities Neurological: Cranial nerves II-XII grossly intact Psych/Mental Status: Normal Affect, Appropriate Vital Signs Temp Pulse Resp BP Pulse Ox 98.4 F 71 18 140/68 H 97 02/01/18 16:54 02/01/18 16:54 02/01/18 16:54 02/01/18 16:54 02/01/18 16:54 Oxygen Delivery Method Room Air Weight: 104.916 kg Body Mass Index (BMI) 37.3 Intake and Output for Last 24 Hours Intake Total 420 / 420 Balance 420 / 420 Assessment/Plan All Active Problems Infected prosthetic knee joint (Acute) Osteoarthritis of knees, bilateral (Acute) 52 year old male with below past medical history hospitalized for infected right prosthetic knee, underwent explant right total knee with placement of antibiotic spacer 01/29/[address] Swartz, admitted to TCU with debility, here for rehabilitation, strengthening, intravenous antibiotics, prior to discharge home with spouse. Will need further right knee surgery with Dr. Swartz in near future. * Debility - PT/OT. * Pain - Tylenol 1000MG Q8H, Oxycodone 5-10MG Q4H PRN moderate to severe pain. * Bowel - Miralax 17GM daily, Senna/colace 2 tablets BID, Dulcolax 10MG PO daily PRN. * Pneumonia vaccination - Too young for pneumonia vaccination. * DVT prophylaxis - Xarelto 10MG thru 02/15/2018. * Hypertension - Lisinopril 10MG daily. * Infected right prosthetic knee status post explant with placement of antibiotic spacer - Vancomycin 1.5GM IV Q8H thru 03/12/2018, Dr. Neumann following. 02/01/18 1326 <Electronically signed by Osvaldo Molina MD> Date Osvaldo Molina MD Cosigner Signature: Date (if applicable) CC: Samm Davies DO; Osvaldo Molina MD Signed DISCHARGE INSTRUCTION Observed: 02/01/2018 Status: F Source: [place] 7:35 AM [facility] RE[facility] Medical Records Department [address] [place] [address] Instructions for Home/Discharge Instructions 02/01/18 0733 MR#: [id number] Acct: [id number] Name: NIRAJ JENSEN Rep #: [id number] : 1965 52 From: Paul Harris PA-C PCP: Samm Davies DO Status: ADM IN Discharge Diet: No Restrictions Discharge Activity: May Not Drive May shower in (days): 2 Ice area for (Minutes): 20 - every hour while awake. Weight Bearing Status: - - Touchdown weightbearing right lower extremity Elevate: Operative Extremity Additional Activity Instructions:: Wear elastic stockings for 2 weeks after your surgery. Call your doctor if your incision/area has: Continuous Slow Oozing, Sudden Increased Bleeding, Increased Pain/ Swelling, Increased Redness, Foul Smelling Discharge Call your doctor if you observe: Fever of 101 or Higher, Coldness, Increased Pain, Numbness or Tingling, Change in Color, Calf discomfort, Uncontrolled pain Change Dressing in (Days):: 1 - and daily as needed. Additional Instructions: Follow [facility] postop instructions Allergies/Adverse Reactions: Allergies No Known Allergies Allergy (Verified 01/25/18 13:13) Medications to take at Discharge Lisinopril [Prinivil] 10 mg PO DAILY 12/25/16 Vancomycin IV 1,250 mg IV Q8H #120 vial 01/31/18 Acetaminophen [Tylenol] 1,000 mg PO Q8 14 Days tablet 02/01/18 Oxycodone [Oxyir] 5 - 10 mg PO Q4H PRN PRN 5 Days #60 tab 02/01/18 Rivaroxaban [Xarelto] 10 mg PO DAILY@0600 11 Days tablet 02/01/18 Senna/Docusate Sodium [Senokot-S] 2 tablet PO BID tablet 02/01/18 The following prescriptions were given: Oxycodone [Oxyir] 5 - 10 mg PO Q4H PRN PRN 5 Days #60 tab PRN Reason: Mod-Severe Pain (-01/09) Vancomycin IV 1,250 mg IV Q8H #120 vial Primary Care Physician: Samm Davies DO [Primary Care Provider] - Test Results: Test results from this visit will be discussed in further detail at your follow-up appointment, if applicable. Please Follow Up With: Paul Harris PA-C When: 02/11/18 @ 1:15 pm 02/01/18 0735 <Electronically signed by Paul Harris PA-C> Date Paul Harris PA-C CC: Samm Davies DO; Jaguar Neumann MD CBC-COMPLETE BLOOD CNT Collected: 02/01/2018 Status: F Source: [place] NO DIFF 5:35 AM [facility] REPOSITORY Order Comment: SPECIMEN OBTAINED FROM LINE DRAW TYPE CODE TESTS RESULT OUT OF RANGE REFERENCE UNITS LAB L100.1000 4.4-11.0 K/mm3 Normal WBC 9.2 LAB L100.1200 4.6-6.2 M/mm3 Low RBC 3.16 LAB L100.1300 13.0-16.5 g/dl Low HGB 9.0 LAB L100.1400 40-54 % Low HCT 26.9 LAB L100.1500 80-94 fL Normal MCV 85.1 LAB L100.1600 27.0-32.0 pg Normal MCH 28.5 LAB L100.1700 32-36 g/gl Normal MCHC 33.5 LAB L100.1810 11.6-14.6 % Normal RDW CV 12.9 LAB L100.1820 35.1-43.9 fl Normal RDW SD 38.8 LAB L100.1900 150-450 K/mm3 Normal PLT 262 LAB L100.2000 6.2-12.0 fl Normal MPV 9.4 Performed By: #### L100.0500 #### [facility] [address] [place], [address] VANCOMYCIN, TROUGH Collected: 01/31/2018 Status: F Source: [place] LEVEL 3:21 PM [facility] RE[facility] Order Comment: Time Medication is to be Given? 1600 TYPE CODE TESTS RESULT OUT OF RANGE REFERENCE UNITS LAB L501.8820 5.0-15.0 ug/mL Normal VANCO, TROUGH 11.8 Result Comment: VANCOMYCIN STANDARED DRUG THERAPY TROUGH LEVEL: 5.0 - 15.0 mg/L VANCOMYCIN HIGH INTENSITY THERAPY TROUGH LEVEL: 15.0 - 20.0 mg/L High Intensity therapy recommended for serious life threatening infections include: - Meningitis -Endocarditis -Pneumonia (Ventilator/Healtcare Associated) -Sepsis PLEASE CONTACT PHARMACY SERVICES (#[id number]) FOR INTERPRETATION OF RESULTS. Performed By: #### L501.8820 #### [facility] [address] [place], [place], [address] CBC-COMPLETE BLOOD CNT Collected: 01/31/2018 Status: F Source: [place] NO DIFF 5:54 AM [facility] TYPE CODE TESTS RESULT OUT OF RANGE REFERENCE UNITS LAB L100.1000 4.4-11.0 K/mm3 Normal WBC 10.5 LAB L100.1200 4.6-6.2 M/mm3 Low RBC 3.46 LAB L100.1300 13.0-16.5 g/dl Low HGB 9.7 LAB L100.1400 40-54 % Low HCT 29.3 LAB L100.1500 80-94 fL Normal MCV 84.7 LAB L100.1600 27.0-32.0 pg Normal MCH 28.0 LAB L100.1700 32-36 g/gl Normal MCHC 33.1 LAB L100.1810 11.6-14.6 % Normal RDW CV 13.0 LAB L100.1820 35.1-43.9 fl Normal RDW SD 38.6 LAB L100.1900 150-450 K/mm3 Normal PLT 274 LAB L100.2000 6.2-12.0 fl Normal MPV 9.7 Performed By: #### L100.0500 #### [facility] [address] [place], [address] CONSULTATION Observed: 01/30/2018 Status: F Source: [place] 4:29 PM [facility] Medical Records Department [address] [place] [address] Consultation 01/30/18 1625 MR#: [id number] Acct: [id number] Name: NIRAJ JENSEN Rep #: [id number] : 1965 52 From: Jaguar Neumann MD PCP: Samm Davies, Status: ADM IN Y Location: [facility] [id number] Problem List (1) Infected prosthetic knee joint Status: Acute Reason for Consult: PJI Consulted by: Dr. Swartz History of Present Illness: The patient is a 52 year old M who had R TKA about a year ago. Did ok since surgery, but had persistent swelling. Denies redness, pain, drainage, fever, chills, night sweats. Seen in follow-up, labwork done, then knee aspirated 01/17 showed heavy purulence and staph lugdunensis. Started on po doxy for several days then taken to OR 01/[address] Swartz for spacer placement. Full ROS performed and neg except as noted above. - Medical History Allergies/Adverse Reactions: Allergies No Known Allergies Allergy (Verified 01/25/18 13:13) Home Medications: Ambulatory Orders Medication Instructions Recorded Lisinopril [Prinivil] 10 mg PO DAILY 12/25/16 Doxycycline 100 mg PO BID 01/25/18 Meloxicam [Mobic] 7.5 mg PO BID 01/25/18 - Social History SMOKING STATUS:: Former smoker Vital Signs Temp Pulse Resp BP Pulse Ox 97.7 F L 67 16 122/70 H 100 01/30/18 14:25 01/30/18 14:25 01/30/18 14:25 01/30/18 14:25 01/30/18 14:25 Oxygen Delivery Method Room Air Weight: 106 kg Body Mass Index (BMI) 37.5 Microbiology Past 72 Hours 01/29/18 14:09 Gram Stain - Final Aspirate - Other Wound Culture - Preliminary Laboratory Tests Past 24 Hrs WBC 11.1 H RBC 3.45 L Hgb 9.7 L Hct 29.6 L - Other Studies Radiology: [] Other Studies: [] reviewed radiology report Route of nutrition/ use of supplements: [] Nutritional Intake: [] IV Site: [] Zuniga Catheter: [] - Physical Exam General: Alert, Oriented x3, Cooperative, No apparent distress HEENT: Atraumatic, PERRLA, EOMI Neck: Supple, No Nodes Lungs: Clear to auscultation, Normal air movement Cardiovascular: Regular rate, Regular Rhythm Abdomen: Soft, Non Tender, Non-Distended Extremities: - - RLE wrapped Skin: No rashes IV Site: Peripheral, without redness Musculoskeletal: No Tenderness to Palpation of Joints or Extremities Neurological: Cranial nerves II-XII grossly intact - Assessment/Plan Antibiotics: [] Assessment/Plan: [] R knee staph alanais PJI - now s/p spacer placement 01/29/[address] Swartz. Surg cx with [facility]. Will stop doxy as the staph was R to tetracycline. Start IV vanc. Plan will be for picc placement then 6 weeks iv vanc, stop date 03/12/18. Weekly bmp, cbc, vanc trough, and esr while on iv abx. Will follow, thank you. 01/30/18 1629 <Electronically signed by Jaguar Neumann MD> Date Jaguar Neumann MD Cosigner Signature (if applicable): Date CC: Samm Davies DO; Jaguar Neumann MD; Tito Swartz MD Signed CBC-COMPLETE BLOOD CNT Collected: 01/30/2018 Status: F Source: [place] NO DIFF 5:45 AM [facility] TYPE CODE TESTS RESULT OUT OF RANGE REFERENCE UNITS LAB L100.1000 4.4-11.0 K/mm3 High WBC 11.1 LAB L100.1200 4.6-6.2 M/mm3 Low RBC 3.45 LAB L100.1300 13.0-16.5 g/dl Low HGB 9.7 LAB L100.1400 40-54 % Low HCT 29.6 LAB L100.1500 80-94 fL Normal MCV 85.8 LAB L100.1600 27.0-32.0 pg Normal MCH 28.1 LAB L100.1700 32-36 g/gl Normal MCHC 32.8 LAB L100.1810 11.6-14.6 % Normal RDW CV 13.0 LAB L100.1820 35.1-43.9 fl Normal RDW SD 39.3 LAB L100.1900 150-450 K/mm3 Normal PLT 285 LAB L100.2000 6.2-12.0 fl Normal MPV 9.6 Performed By: #### L100.0500 #### [facility] [address] [place], [address] BASIC METABOLIC Collected: 01/30/2018 Status: F Source: [place] PROFILE (BMP) 5:45 AM [facility] TYPE CODE TESTS RESULT OUT OF RANGE REFERENCE UNITS LAB L501.0100 74-106 mg/dL Normal GLU 106 Result Comment: Fasting Glucose result from 100 to 125 mg/dL suggests IMPAIRED HOMEOSTASIS per A.D.A. criteria. Please note revised GLUCOSE reference range effective 2017. LAB L501.1000 7-18 mg/dL Normal BUN 10 LAB L501.1100 0.70-1.30 mg/dL Low CREAT,SERUM 0.65 Result Comment: The validity of the calculated GFR AND GFRAA in patients over 70 years has not been determined. Clinical correlation is essential. LAB L501.1110 >60 mL/min Normal EST GFR 136 Result Comment: Non- GFR Calc LAB L501.1115 >60 mL/min Normal EST GFR - AA 165 Result Comment: GFR Calc LAB L501.1255 ml/min Normal Estimated CRCL 118.60 LAB L501.1300 10-20 RATIO BUN/CRE Normal 15.4 LAB L501.2200 8.5-10 mg/dL Low .1 CA 8.2 LAB L501.5300 136-14 mmol/L 5 NA Normal 136 LAB L501.5600 3.5-5. mmol/L 1 K Normal 4.0 LAB L501.5900 98-107 mmol/L CL Normal 100 LAB L501.6100 21.0-3 mmol/L 2.0 CO2 Normal 29.0 LAB L501.6200 5-15 GAP Normal 7 Performed By: #### L500.2500 #### [facility] [address] [place], [address] OPERATIVE REPORT Observed: 01/29/2018 Status: F Source: [place] 4:05 PM [facility] Medical Records Department [address] [place] [address] Operative Report 01/29/18 1553 MR#: [id number] Acct: [id number] Name: NIRAJ JENSEN Rep #: [id number] : 1965 52 From: Tito Swartz MD PCP: Samm Davies DO Status: ADM IN Y Location: [place] [id number] Report of Operation Date of Procedure: 01/29/18 Pre-Operative Diagnosis: Infected right total knee replacement Post-Operative Diagnosis: Infected right total knee replacement Surgery/Procedure Performed:: Explant right total knee with placement of antibiotic spacer. Insertion of nonbiodegradable antibiotic delivery system Description of Surgical Findings:: Well aligned antibiotic spacer. Aggressive debridement of the knee. Patient had florid synovitis consistent with chronic infection. Also significant osteomyelitis was encountered requiring significant bony debridement.. operations controller: Paul Harris Type of Anesthesia:: Spinal Anesthesiologist: Jose Sands Special Medications: 2 g Ancef after cultures were obtained, 1 g TXA at incision, 1 g TXA closure Specimen's removed: 3 separate specimens were sent to microbiology Drains: Lateral Hemovac drain Estimated Blood Loss (mL): 150 Fluids Replaced: 1600 mL crystalloid Description of Procedure: 52 yo m history of right TKA in 2017 presents with chronic swelling. Patient was worked up for infection noted to have staph on aspiration meeting 5 out of 5 nonoperative MSIS criteria for infection. Reviewed options were discussed the patient. Based on acuity of the symptoms and organism irrigation debridement with polyethylene exchange is recommended. Risks and benefits of the procedure were discussed with the patient including but not limited to blood loss, DVTs, PEs, neurovascular damage, infection, general risk of anesthesia including loss of life. Demonstrated understanding and was able to sign informed consent. On the date of procedure patient'sR lower extremity was marked in the preoperative area. The patient was then taken back to the operating room where the patient was placed on the table in the supine position. All bony prominences were identified a well-padded. Anesthesia assumed control of the C-spine and airway and remained controlled throughout the remainder of the procedure. A tourniquet was placed on the operative thigh and the leg was prepped in a sterile fashion. The surgeon then scrubbed at this time .Upon reentering the room left lower extremity was draped in a standard orthopedic fashion. A timeout was then called and everyone agreed upon the side, the site, the procedure to be performed, patient's identity and antibiotics given. A midline skin incision was made and sharp dissection was taken down through skin subcutaneous tissue and fat. Appropriate flaps were elevated medially and laterally. His arthrotomy was identified and the standard medial parapatellar incision was made and the patella was subluxed laterally. The standard deep MCL release was done. At this point an aggressive synovectomy commenced. Our attention was first turned towards the subpatellar pouch and all suspicious synovium and tissues were debrided. We then directed our attention towards medial lateral gutters were these tissues were aggressively debrided. Knee was then flexed up the polyethylene was removed. Once polyethylene was removed we did the remainder of the synovium in the medial and lateral gutters and along the lateral structures and MCL. At this time the knee was flexed up in our attention was directed towards removing the implants. Osteotomes and TPS saw were used to sequentially break up the bone cement interface we did note there was significant soft bone consistent with osteomyelitis. Once the femoral bone cement interface was broken up a bone tamp was used to remove the femur from the distal femur. Attention was then directed towards the tibia. TPS saw and white osteotomes were used to sequentially break up the bone cement interface. Once this was broken up the tibia could be removed. There was a large central defect. Once this was completed our attention was directed at aggressively debriding the bone. We did send membrane cultures. After we aggressively debrided the nonviable bone back to what appeared to be healthy bone in all cement we then reamed the canals of both the femur and the tibia. This was completed the knee was placed in extension patella was everted and a TPS saw was used to break up the bone cement interface once this was completed the patella was easily removed. A bur was used to remove the pegs and there is cement mantle. Once this was completed tourniquet was let down and hemostasis was obtained using the aqua Michael hemostasis device. Once this was completed 6 L of normal saline were irrigated throughout the wound stopping intermittently to debride any further nonviable or infectious debris. Should also be noted that prior to irrigation and hemostasis we did place a lamina strawhat blocking operator in the joint and aggressively debride the knee in both extension and flexion posteriorly. Once the knee was adequately debrided we directed our attention in performing the spacer. On the back table one batch of cement was mixed with one third of the antibiotics. (Antibiotics and cement were 6 g vancomycin, 2 g Ancef and 4.8 g tobramycin) this initial batch of cement and antibiotics were rolled into dowels and placed on the back table. Once the wound was appropriately irrigated the dowels were placed on the femoral tibial canal for an appropriate fit. This was our nonbiodegradable antibiotic delivery system. Size 5 femur was selected as this was what was removed from the knee. We then trialed polyethylene components. An 8, 19 mm CR polyethylene gave us a good fit over the proximal tibia and allow the knee to adequately flex and extend with adequate tension on the soft tissues. Once we selected our final components they were placed on the back table. The final polyethylene was scored on the backside in order to allow for good cement interdigitation. The next back of cement was mixed with the remainder of the antibiotics. The bone ends were cleaned and the tourniquet remained down. The femur was cemented into place and the tibial polyethylene was cemented into place. Knee was placed in extension while cement was cured. Once the cement cured there were some leftover antibiotics which were placed in the wound as powder. A drain was placed out the lateral portion of the knee superior laterally. The arthrotomy was closed using #1 Vicryl. Skin was closed using 2-0 Vicryl and final skin closure was done with nylon sutures. A sterile compressive dressing was then placed. Knee immobilizer was placed. The patient was then awakened from anesthesia, transferred to the [facility] and transferred to the PACU for recovery. Post op plan Patient will remain in the knee immobilizer for 2 weeks. He will be touchdown weightbearing for 2 weeks followed by 25% weightbearing for the remainder of the time that the pacer is in place. A 2 weeks he has no limitations on range of motion and can begin physical therapy for range of motion. Patient will will be placed on IV antibiotics infectious disease has been consulted. We will plan for the second stage of the revision once adequate IV antibiotic treatment has commenced and patient has successfully passed an antibiotic holiday. My physician assistant director of plant operations was a vital part of this case. He was important in appropriate retraction during the case, and protection of soft tissues during bony cuts. His intimate knowledge of the case and my steps aided in safe and expedient completion of the procedure as well as appropriate position of the leg during the case. He was also vital in assisting with closure under my direct supervision. Grafts/Implants Used: Mary triathlon CR size 5 femur, 8 x 19 mm CR poly - Complications None - Admit VTE Documentation VTE Present on Admission: No VTE Mechan Device Prophylaxis: SCD's, Thigh High JUAN Hose VTE Pharm Prophylaxis ordered?: Yes 01/29/18 1605 <Electronically signed by Tito Swartz MD> Date Tito Swartz MD CC: Samm Davies DO; Tito Swartz MD Signed KNEE 1 OR 2 VIEWS Observed: 01/29/2018 Status: F Source: [place] 3:53 PM [facility] Imaging Services [address] [place] [id number] Knee 1 or 2 Views MR#: [id number] Acct: [id number] Name: NIRAJ JENSEN Rep #: [id number] : 1965 M 52 From: Dave Ngo DO PCP: Samm Davies DO Status: ADM IN Study: Knee 1 or 2 Views Date of Exam: 01/29/18 Exam# [id number] Ordering Dr: Tiot Swartz MD STUDY: X-RAY - RIGHT KNEE REASON FOR EXAM: Male, 52 years old. Postop TECHNIQUE: 2 view(s) of the knee. COMPARISON: January 09, 2017 FINDINGS: Status post revision of right knee prosthesis since the previous study. Postsurgical changes within surrounding soft tissue. There is a drain noted. RAD/Knee 1 or 2 Views IMPRESSION: Status post revision of prosthesis of the knee. Electronically Signed: Dave Ngo DO at 21:32 EDT Tel [phone], Service support , CC: Samm Davies DO; Tito Swartz MD Corduroy Cutter Operator: Signed Observed: 01/29/2018 Status: F Source: [place] CULTURE, DEEP WOUND 2:09 PM [facility] RE[facility] Order Date: 11/01/16 Comments: 1. RIGHT SUPRAPATELLAR POUCH SYNOVIUM Gram Stain Gram Stain 3+ Red Blood Cells Rare White Blood Cells No organisms seen Wound Culture ORGANISM 1: Staphylococcus lugdunensis Amount Growth Rare Staphylococcus lugdunensis: REACTION Benzylpenicillin NF >=0.5 R Cefoxitin *NF + Clindamycin $$ <=0.25 I Inducable Clindamycin Resistan - Erythromycin $ >=8 R Gentamicin $ <=0.5 S Levofloxacin $ <=0.12 S Oxacillin NF >=4 R Tigecycline $$$$ <=0.12 S Rifampin $$ <=0.5 S Tetracycline NF >=16 R Vancomycin $ <=0.5 S (NF) indicates non-formulary drug at [facility]. Approval by Infectious Disease Specialist required before non-formulary drugs may be ordered and/or dispensed. * CLSI guidelines does not recommend testing of cephalosporins. This interpretation is deduced from Beta-lactam/penicillin results. Cult, Anaerobic No growth in 5 days. Performed By: #### M100.1500 #### [facility] [place], [address] Observed: 01/29/2018 Status: F Source: [place] CULTURE, DEEP WOUND 2:09 PM [facility] Order Date: 11/01/16 Comments: 2. RIGHT FEMORAL MEMBRANE Gram Stain Gram Stain 3+ Red Cell Stroma 3+ Red Blood Cells No organisms seen Wound Culture ORGANISM 1: Staphylococcus lugdunensis Amount Growth Rare Staphylococcus lugdunensis: REACTION Benzylpenicillin NF >=0.5 R Cefoxitin *NF + Clindamycin $$ <=0.25 I Inducable Clindamycin Resistan - Erythromycin $ >=8 R Gentamicin $ <=0.5 S Levofloxacin $ <=0.12 S Oxacillin NF >=4 R Tigecycline $$$$ <=0.12 S Rifampin $$ <=0.5 S Tetracycline NF >=16 R Vancomycin $ <=0.5 S (NF) indicates non-formulary drug at [facility]. Approval by Infectious Disease Specialist required before non-formulary drugs may be ordered and/or dispensed. * CLSI guidelines does not recommend testing of cephalosporins. This interpretation is deduced from Beta-lactam/penicillin results. Cult, Anaerobic No anaerobic bacteria isolated. Performed By: #### M100.1500 #### [facility] [address] [place], [address] Observed: 01/29/2018 Status: F Source: [place] CULTURE, DEEP WOUND 2:09 PM [facility] Order Date: 11/01/16 Comments: 3. RIGHT TIBIAL MEMBRANE Gram Stain Gram Stain 3+ Red Blood Cells 2+ White Blood Cells 1+ Gram positive cocci in clusters Wound Culture ORGANISM 1: Staphylococcus lugdunensis Amount Growth 1+ Staphylococcus lugdunensis: REACTION Benzylpenicillin NF >=0.5 R Cefoxitin *NF + Clindamycin $$ <=0.25 I Inducable Clindamycin Resistan - Erythromycin $ >=8 R Gentamicin $ <=0.5 S Levofloxacin $ 0.25 S Oxacillin NF >=4 R Tigecycline $$$$ <=0.12 S Rifampin $$ <=0.5 S Tetracycline NF >=16 R Vancomycin $ <=0.5 S (NF) indicates non-formulary drug at [facility]. Approval by Infectious Disease Specialist required before non-formulary drugs may be ordered and/or dispensed. * CLSI guidelines does not recommend testing of cephalosporins. This interpretation is deduced from Beta-lactam/penicillin results. Cult, Anaerobic No anaerobic bacteria isolated. Performed By: #### M100.1500 #### [facility] [address] [place], [address] Observed: 01/29/2018 Status: F Source: [place] CULTURE, DEEP WOUND 2:09 PM [facility] Order Date: 11/01/16 Comments: 4. RIGHT KNEE JOINT ASPIRATION Gram Stain Gram Stain 3+ Red Blood Cells Rare White Blood Cells No organisms seen Wound Culture ORGANISM 1: Staphylococcus lugdunensis Amount Growth Rare Staphylococcus lugdunensis: REACTION Benzylpenicillin NF >=0.5 R Cefoxitin *NF + Clindamycin $$ <=0.25 I Inducable Clindamycin Resistan - Erythromycin $ >=8 R Gentamicin $ <=0.5 S Levofloxacin $ <=0.12 S Oxacillin NF >=4 R Tigecycline $$$$ <=0.12 S Rifampin $$ <=0.5 S Tetracycline NF >=16 R Vancomycin $ <=0.5 S (NF) indicates non-formulary drug at [facility]. Approval by Infectious Disease Specialist required before non-formulary drugs may be ordered and/or dispensed. * CLSI guidelines does not recommend testing of cephalosporins. This interpretation is deduced from Beta-lactam/penicillin results. Cult, Anaerobic No anaerobic bacteria isolated. Performed By: #### M100.1500 #### [facility] [place], [address] [employer] Observed: 01/29/2018 Status: F Source: KAYCEE CULT/SMEAR [id number] 2:09 PM [facility] REPOSITORY Comments: 1. RIGHT SUPRAPATELLAR POUCH SYNOVIUM Is this test to exclude patient from TB Isolation? N AFB Smear/Fluor TESTING PERFORMED AT [facility]. ORIGINAL REPORT ON FILE IN LAB CONTAINS ADDITIONAL TEST SITE INFORMATION. Smear, Acid Fast Tissue Grinding Smear: Negative AFB Cult [facility]. ORIGINAL REPORT ON FILE IN LAB CONTAINS ADDITIONAL TEST SITE INFORMATION. Culture, Acid Fast NO ACID-FAST BACILLI ISOLATED AFTER 6 WEEKS. Performed By: #### M100.3880, M600.1900 #### [facility] [address] [place], [address] Observed: 01/29/2018 Status: F Source: KAYCEE SERRATO FUNGUS W/ 2:09 PM [facility] [id number] REPOSITORY Comments: 1. RIGHT SUPRAPATELLAR POUCH SYNOVIUM Is this test to exclude patient from TB Isolation? N Cu,[id number] TESTING PERFORMED AT [facility]. ORIGINAL REPORT ON FILE IN LAB CONTAINS ADDITIONAL TEST SITE INFORMATION. CUF No yeast or mold isolated after [address] TEST[facility]. ORIGINAL REPORT ON FILE IN LAB CONTAINS ADDITIONAL TEST SITE INFORMATION. Fungus Stain No yeast or mold observed. Performed By: #### M100.3880, M600.1900 #### [facility] [address] [place], [address] AFB Observed: 01/29/2018 Status: F Source: KAYCEE CULT/SMEAR [id number] 2:09 PM [facility] REPOSITORY Comments: 2. RIGHT FEMORAL MEMBRANE Is this test to exclude patient from TB Isolation? N AFB Smear/Fluor TESTING PERFORMED AT [facility]. ORIGINAL REPORT ON FILE IN LAB CONTAINS ADDITIONAL TEST SITE INFORMATION. Smear, Acid Fast Tissue Grinding Smear: Negative AFB Cult [facility]ING [facility]FOR[facility]. ORIGINAL REPORT ON FILE IN LAB CONTAINS ADDITIONAL TEST SITE INFORMATION. Culture, Acid Fast NO ACID-FAST BACILLI ISOLATED AFTER 6 WEEKS. Performed By: #### M100.3880, M6.0 #### [facility] [address] [place], [address] Observed: 01/29/2018 Status: F Source: KAYCEE CULTURE, FUNGUS W/ 2:09 PM [facility] [id number] REPOSITORY Comments: 2. RIGHT FEMORAL MEMBRANE Is this test to exclude patient from TB Isolation? N Ambrocio [id number] TESTING PERFORMED AT [facility]. ORIGINAL REPORT ON FILE IN LAB CONTAINS ADDITIONAL TEST SITE INFORMATION. CUF No yeast or mold isolated after [address] [facility]. ORIGINAL REPORT ON FILE IN LAB CONTAINS ADDITIONAL TEST SITE INFORMATION. Fungus Stain No yeast or mold observed. Performed By: #### M100.3880, M600.1900 #### [facility] [address] [place], [address] AFB Observed: 01/29/2018 Status: F Source: KAYCEE CULT/SMEAR [id number] 2:09 PM [facility] REPOSITORY Comments: 3. RIGHT TIBIAL MEMBRANE Is this test to exclude patient from TB Isolation? N AFB Smear/Fluor TESTING PERFORMED AT [facility]. ORIGINAL REPORT ON FILE IN LAB CONTAINS ADDITIONAL TEST SITE INFORMATION. Smear, Acid Fast Tissue Grinding Smear: Negative AFB Cult TESTING PERFORMED AT [facility]. ORIGINAL REPORT ON FILE IN LAB CONTAINS ADDITIONAL TEST SITE INFORMATION. Culture, Acid Fast NO ACID-FAST BACILLI ISOLATED AFTER 6 WEEKS. Performed By: #### M100.3880, M600.1900 #### [facility] [address] [place], [address] Observed: 01/29/2018 Status: F Source: AMBROCIO MEJIA W/ 2:09 PM [facility] [id number] REPOSITORY Comments: 3. RIGHT TIBIAL MEMBRANE Is this test to exclude patient from TB Isolation? N Pedro,[id number] TESTING PERFORMED AT [facility]. ORIGINAL REPORT ON FILE IN LAB CONTAINS ADDITIONAL TEST SITE INFORMATION. CUF No yeast or mold isolated after [address] TESTING PERFORMED AT [facility]. ORIGINAL REPORT ON FILE IN LAB CONTAINS ADDITIONAL TEST SITE INFORMATION. Fungus Stain No yeast or mold observed. Performed By: #### M100.3880, M600.1900 #### [facility] [address] [place], [address] 12 LEAD ELECTROCARDIOGRAM Observed: 01/29/2018 Status: F Source: GRISWOLD 9:10 AM [facility] REPOSITORY [facility] Cardiovascular Services [address] [place] [address] [place] [place] [facility] 01/25/18 1246 MR#: [id number] Acct: [id number] Name: NIRAJ JENSEN Rep #: [id number] : 1965 52 From: Dc Schilling MD Attending Dr: Tito Swartz MD Status: PRE IN Ordering Dr: Jose Sands MD Date: 01/25/18 Location: [facility] Sex: M C Admitted: Test Reason : Blood Pressure : / mmHG Vent. Rate : 062 BPM Atrial Rate : 062 BPM P-R Int : 146 ms QRS Dur : 094 ms QT Int : 384 ms P-R-T Axes : 039 041 032 degrees QTc Int : 389 ms Normal sinus rhythm Normal ECG Confirmed by DC SCHILLING ([id number]), associate editor WANG CULVER ([id number]) on 01/29/2018 9:10:08 AM Referred By: Tito Swartz Confirmed By:DC SCHILLING 01/29/18 0910 Date Dc Schilling MD CC: Jose Sands MD; Samm Davies DO; Tito Swartz MD Date Dictated: 01/25/18 1246 Date Transcribed: 01/25/181245 Corduroy Cutter Operator: Signed HISTORY AND PHYSICAL Observed: 01/28/2018 Status: F Source: GRISWOLD EXAM 7:18 AM [facility] REPOSITORY [facility] Medical Records Department [address] [place] [address] History and Physical 01/28/18 0717 MR#: [id number] Acct: [id number] Name: NIRAJ JENSEN Rep #: [id number] : 1965 52 From: Paul Harris PA-C PCP: Samm Davies DO Status: PRE IN Y Location: [facility] History and Physical DATE OF SURGERY: 01/29/2018 SCHEDULED PROCEDURE: Right knee explant total knee, placement of antibiotic spacer HISTORY OF PRESENT ILLNESS: This is a 52-year-old male who underwent a previous right total knee arthroplasty on January 09, 2017. Patient continued to have swelling and tightness in the right knee. Patient denied any fevers, chills, or recent infections. Patient just feels as if the knee feels swollen and tight. There is no history of infections after surgery. 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 He denies any new trauma or injury. Patient had lab work obtained in which showed an elevated CRP at 6.71 and ESR at 57. Patient also had aspiration which did show positive for synovasure with greater than 70,000 white blood cells, 90% neutrophils. Cultures are positive for staph strain. After discussion with Dr. Tito Swartz, the patient will undergo an explant right total knee with placement of antibiotic spacer. Patient has been on Doxycycline. Patient currently denies any chest pain, shortness breath, fevers chills. Patient has a medical history pertinent for hypertension. REVIEW OF SYSTEMS: ROS: Const: Denies anorexia, change in appetite, fever, hard of hearing, vision problems and weight change. CV: Denies chest pain, heart murmur, irregular heartbeat and peripheral vascular disease. Resp: Denies asthma, cough, pneumonia, sleep apnea, SOB, tuberculosis and wheezing. GI: Denies constipation, diarrhea, difficulty swallowing, heartburn, nausea, bloody stools and vomiting. : Urinary: denies incontinence. Musculo: Denies leg swelling, limp, trouble walking and weakness. Skin: Reports tattoo, but denies Raynaud's and history of shingles. Neuro: Denies ambulatory dysfunction, dizziness, numbness/tingling and tremor. Psych: Denies anxiety, depression, insomnia, mental illness and stress. Kal/Lymph: Denies anemia, bleeding/bruising tendency and past transfusion. Reviewed, no changes. PAST MEDICAL HISTORY: Advance Care Plan: No Advance Directives Effective Date: 10/26/2016 PMH: Medical Problems: High Blood Pressure Accidents: None Surgical Hx: Carpal Tunnel Release Rt - (2001) [facility] Vasectomy - (1996) [place] [place] Knee Arthroscopy RT - (06/09/2016) [email or web address] Knee Replacement RT - (01/09/2017) SAW@ [facility] Anesthesia Complications: None Assistive Devices: None Reviewed, no changes. SOCIAL HISTORY: SH: Marital: .Occupation: [employer] ([employer]).Work Status: Currently Working.Hand Dominance: Right-handed. Personal Habits: Cigarette Use: Former - 1 1/2 ON AND OFF TRYING TO STOP.Alcohol: Currently consumes alcohol, Occasionally.Drug Use: Denies Use.Enjoy Exercising: Exercises 1-3 x/month. Reviewed, no changes. VITALS: Ht: 66 Wt: 233lb Wt k.689 BMI: 37.6 BP: 130/80 Pulse: 80 Resp: 16 T: 97.3 T: 36.3C ALLERGIES: No Known Drug Allergy MEDICATIONS: Doxycycline Monohydrate 100 mg 1 by mouth twice a day, Meloxicam 7.5 mg take 1 tablet by mouth twice A day, Lisinopril 10 mg take 1 tablet by mouth every day PRE-OP EXAM: General appearance:NORMAL Other: Eyes: Conjunctivae and lids: NORMAL Pupils: ERR Ears, Nose, Mouth, and Throat: NORMAL Other: Inspection of lips, teeth and gums: NORMAL Other: Neck: Examination of neck: no masses noted. Respiratory: Assessment of respiratory effort: NORMAL Other: Auscultation of lungs: clear to auscultation no wheezes, rhonchi or rales. Cardiovascular: Auscultation of heart: regular rate and rhythm, no murmurs, gallops or rubs. Exam of carotid arteries: NORMAL Other: Gastrointestinal: Exam of abdomen: soft, nontender, nondistended bowel sounds present. PHYSICAL EXAMINATION: Right knee: Incision is well healed. There is 1 mm laxity medially and laterally. Stable to varus and valgus stress test. There is moderate effusion. Range of motion right knee lacks 5 of full extension to 110 of flexion. Sensation intact to light touch. Neurovascularly intact. IMAGING STUDIES: Labwork: January 09, 2018 CRP 6.71 and ESR 57 Patient with positive Synovasure with greater than 70,000 white blood cells and the synovial fluid and greater than 90% neutrophils. Cultures are positive for staph strain. IMPRESSION: 1. Infected right total knee arthroplasty 2. Hypertension PLAN: Dr. Tito Swartz did discuss and review with the patient all treatment options including surgical versus nonsurgical options. Patient does wish to proceed with the above-stated procedure. Potential risks, benefits, and complications of the procedure were discussed in detail including but not limited to , infection, nerve and blood vessel damage, persistent pain, numbness, tingling, paresthesias, blood clot, pulmonary embolism, and requirement for possible further surgery. The patient expressed full understanding and has no further questions for the doctor. Patient does agree to proceed with the above-stated procedure and has signed the surgery consent form. This dictation was created using voice recognition software. Phonetic and/or grammatical errors may exist.. ___ I have re-examined the patient. There are no clinical changes since date of exam. ___ See progress notes for changes. ___ Dictated on admission Date: Time: Signature: 01/28/18 0718 <Electronically signed by Paul Harris PA-C> Date Paul Harris PA-C Cosigner Signature: Date (if applicable) CC: Samm Davies DO; Paul OQUENDO Signed CBC-COMPLETE BLOOD CNT Collected: 01/25/2018 Status: F Source: KAYCEE NO DIFF 1:50 PM [facility] REPOSITORY Order Comment: Comments: COLLECTED BY GERONIMO IN [facility] TYPE CODE TESTS RESULT OUT OF RANGE REFERENCE UNITS LAB L100.1000 4.4-11.0 K/mm3 Normal WBC 9.3 LAB L100.1200 4.6-6.2 M/mm3 Low RBC 4.59 LAB L100.1300 13.0-16.5 g/dl Low HGB 12.9 LAB L100.1400 40-54 % Low HCT 39.5 LAB L100.1500 80-94 fL Normal MCV 86.1 LAB L100.1600 27.0-32.0 pg Normal MCH 28.1 LAB L100.1700 32-36 g/gl Normal MCHC 32.7 LAB L100.1810 11.6-14.6 % Normal RDW CV 13.3 LAB L100.1820 35.1-43.9 fl Normal RDW SD 41.4 LAB L100.1900 150-450 K/mm3 Normal PLT 312 LAB L100.2000 6.2-12.0 fl Normal MPV 9.4 Performed By: #### L100.0500 #### [facility] [address] [place], [place], [address] Observed: 01/25/2018 Status: F Source: KAYCEE MRSA/SAID SCREEN 1:50 PM [facility] REPOSITORY MRSA/SAID SCRN S. AUREUS S. aureus Negative MRSA MRSA Negative Performed By: #### M100.651 #### [facility] [address] [place], [place], [address] SYNOVIAL FLUID RBC, Collected: 01/17/2018 Status: C Source: KAYCEE WBC AND DIFF 5:21 PM [facility] REPOSITORY TYPE CODE TESTS RESULT OUT OF RANGE REFERENCE UNITS LAB L200.5050 0.000-0.000 10 3 uL High SYN Tot 74.[address] Result Comment: This is the Total Number of Nucleated Cell Types in the Body Fluid. AMENDED REPORT 01/17/182005 SYN Tot Cell Ct previously reported as: 71.8320 H 10^3 uL This is the Total Number of Nucleated Cell Types in the Body Fluid. LAB L200.5100 0 10 6/uL High SYNOVIAL RBC 0.049 LAB L200.5200 0.000-0. 10 3uL 002 High SYNOVIAL WBC 74.1680 Result Comment: AMENDED REPORT 01/17/182005 SYNOVIAL WBC previously reported as: 70.6940 H 10^3uL LAB L200.5260 % Normal 98.2 SYBF PMN WBC% LAB L200.5270 10 3/ul Normal 69.413 SYBF PMN WBC# LAB L200.5280 % Normal 1.8 SYBF MN WBC% LAB L200.5800 Normal Reviewed PATH COM/SYFL Result Comment: Negative for malignant cells. Acute inflammation. David Medina M.D. 01/21/18 AMENDED REPORT 01/21/18 1147 PATH COM/SYFL previously reported as: May follow LAB L200.4600 SYNOVIAL Normal SOURCE R KNEE LAB L200.4900 Pale Yellow SYNOVIAL Normal COLOR ALCIDES LAB L200.5000 CLEAR SYNOVIAL Normal CARMEN. Turbid LAB L200.5300 0-25 % High NEUTROPHIL 95 LAB L200.5700 % OTHER CELL Normal /SYN 3 Performed By: #### L200.0400 #### [facility] [address] [place] [address]. [place], [place], [address] Observed: 01/17/2018 Status: F Source: GRISWOLD CULTURE, BODY FLUID 5:21 PM [facility] REPOSITORY Results called on 01/21/189806 by VERONICA LIZARRAGA AT [phone]. List Antibiotics Last 48 Hours? N List Antibiotics to be Started? U Gram Stain Centrifuged Specimen? Culture performed on centrifuged specimen Gram Stain 4+ White Blood Cells No organisms seen Body Fluid Cult ORGANISM 1: Staphylococcus lugdunensis Amount Growth 1+ Staphylococcus lugdunensis: REACTION Benzylpenicillin NF >=0.5 R Cefoxitin *NF + Clindamycin $$ <=0.25 I Inducable Clindamycin Resistan - Erythromycin $ >=8 R Gentamicin $ <=0.5 S Levofloxacin $ <=0.12 S Oxacillin NF >=4 R Tigecycline $$$$ <=0.12 S Rifampin $$ <=0.5 S Tetracycline NF >=16 R Vancomycin $ <=0.5 S (NF) indicates non-formulary drug at [facility]. Approval by Infectious Disease Specialist required before non-formulary drugs may be ordered and/or dispensed. * CLSI guidelines does not recommend testing of cephalosporins. This interpretation is deduced from Beta-lactam/penicillin results. Cult, Anaerobic No anaerobic bacteria isolated. Performed By: #### M100.1300 #### [facility] [address] [place], [address] Observed: 01/17/2018 Status: F Source: GRISWOLD ACID FAST BACT 5:21 PM [facility] CULT/SM REPOSITORY AFB Smear/Fluor TESTING PERFORMED AT [facility]. ORIGINAL REPORT ON FILE IN LAB CONTAINS ADDITIONAL TEST SITE INFORMATION. Smear, Acid Fast NO ACID-FAST BACILLI OBSERVED ON SMEAR. AFB Cult TESTING PERFORMED AT [facility]. ORIGINAL REPORT ON FILE IN LAB CONTAINS ADDITIONAL TEST SITE INFORMATION. Culture, Acid Fast NO ACID-FAST BACILLI ISOLATED AFTER 6 WEEKS. Performed By: #### M300.1000 #### [facility] [address] [place], [address] Observed: 01/17/2018 Status: F Source: KAYCEE SERRATO, FUNGUS 8482 5:21 PM [facility] REPOSITORY Cu,Lbxsum7834 TESTING PERFORMED AT [facility]. ORIGINAL REPORT ON FILE IN LAB CONTAINS ADDITIONAL TEST SITE INFORMATION. CUF No yeast or mold isolated after 4 weeks. Performed By: #### M600.2000 #### [facility] [address] [place], [address] CBC Collected: 01/09/2018 Status: F Source: [facility] 3:41 PM [facility] REPOSITORY TYPE CODE TESTS RESULT OUT OF REFERENCE UNITS RANGE LAB WBC(LOINC) 4.60-10.80 10 3/mcL WBC 9.70 LAB RBCCT(LOINC 4.04-6.13 10 6/mcL ) RBC 4.44 LAB HGB(LOINC) 14.0-18.0 G/dL Low Hgb 12.5 LAB HCT(LOINC) 42.0-52.0 % Low Hct 37.1 LAB MCV(LOINC) 80.0-94.0 fL MCV 83.5 LAB MCH(LOINC) 27.0-31.2 pg MCH 28.2 LAB MCHC(LOINC) 31.8-35.4 G/dL MCHC 33.7 LAB RDW(LOINC) 11.5-14.5 % High RDW 14.9 LAB PLT(LOINC) 130-400 10 3/mcL Platelet 328 LAB MPV(LOINC) 7.4-10.4 fL MPV 7.6 Performed By: #### CBC, ADIFF, ANEU #### [address] [address] #### ESR, CRP #### [place] [address] .AUTO DIFF Collected: 01/09/2018 Status: F Source: [facility] 3:41 PM [facility] REPOSITORY TYPE CODE TESTS RESULT OUT OF REFERENCE UNITS RANGE LAB RAAD(LOINC) 37.0-80.0 % Neutrophil % 65.1 LAB LYM(LOINC) 10.0-50.0 % Lymphocyte % 24.8 LAB MON(LOINC) 1.7-13.0 % Monocyte % 8.1 LAB EO(LOINC) 0.0-7.0 % Eosinophil % 1.8 LAB BAS(LOINC) 0.0-2.5 % Basophil % 0.2 LAB ABLYM(LOIN 0.77-3.85 10 3/mcL C) Lymphocyte, 2.40 Absolute LAB CARMEN(LOINC 0.15-1.00 10 3/mcL ) Monocyte, 0.80 Absolute LAB AEOS(LOINC 0.00-0.40 10 3/mcL ) Eosinophil, 0.20 Absolute LAB ABAS(LOINC 0.00-0.19 10 3/mcL ) Basophil, 0.00 Absolute Performed By: #### CBC, ADIFF, ANEU #### [address] [address] #### ESR, CRP #### [place] [address] .NEUABS Collected: 01/09/2018 Status: F Source: [facility] 3:41 PM [facility] REPOSITORY TYPE CODE TESTS RESULT OUT OF REFERENCE UNITS RANGE LAB ANEU(LOINC) 2.85-6.16 10 3/mcL High Neutrophil, 6.30 Absolute Performed By: #### CBC, ADIFF, ANEU #### [address] [address] #### ESR, CRP #### [place] [address] ESR Collected: 01/09/2018 Status: F Source: [facility] 3:41 PM [facility] REPOSIT[facility] TYPE CODE TESTS RESULT OUT OF REFERENCE UNITS RANGE LAB ESR(LOINC) 0-20 mm/hr Erythrocyte High Sed Rate 57 Performed By: #### CBC, ADIFF, ANEU #### [place] [address] [place], [place] [address] #### ESR, CRP #### [facility] [address] [place] [address] CRP Collected: 01/09/2018 Status: F Source: [facility] 3:41 PM [facility] REPOSITORY TYPE CODE TESTS RESULT OUT OF REFERENCE UNITS RANGE LAB CRP(LOINC) <=0.80 mg/dL High C-Reactive 6.71 Protein Performed By: #### CBC, ADIFF, ANEU #### [place] [address] [place], [place] [address] #### ESR, CRP #### [facility] [address] [place] [address] ALLERGIES ALLERGIES DATE TYPE / CODE NAME / CODE REACTION SEVERITY SOURCE 01/25/2018 Drug No Known Unknown [facility] Allergy/4160 Allergies/F00 Hospital 95773(SNOMED 6780876(RXNOR Repository CT) M) ENCOUNTERS ENCOUNTERS ADMIT/DISCHARGE ACCOUNT NUMBER ADMITTING ENCOUNTER LOCATION SOURCE CLASS 03/15/2018 [id number] Ambulatory BBuilding:RUBEN Bela [facility] Repository 03/15/2018 [id number] Ambulatory BBuilding:BRIT Cramer [facility] Repository 03/13/2018/03/17/20 [id number] Ambulatory BBuilding:DR Bela [place] Repository 03/13/2018/03/17/20 [id number] Ambulatory BBuilding:DR Bela [place] [facility] Repository 03/06/2018 [id number] Ambulatory [facility] ding:LAB Repository 03/06/2018 [id number] Ambulatory [facility] ding:PT Repository 02/26/2018/03/01/20 [id number] Ambulatory [address] ding:LAB Repository 02/01/2018/02/17/20 [id number] Osvaldo Molina Inpatient [address] ding:TCURoom Repository : NGX93Hlm: 1 01/29/2018/02/02/20 [id number] [place], Inpatient [place] 18 Tito Encounter [facility] ding:RX0Gptz Repository : VR256Tnc: 1 01/25/2018 [id number] Ambulatory BMSBuilding: [place] Repository 01/17/2018 [id number] Ambulatory [place] [facility] ding:LABSPEC Repository 01/09/2018/01/10/20 [id number] Ambulatory BBuilding:OL [address] Repository 04/04/2017/04/04/19 [id number] Ambulatory [address] ding:PT Repository PAYERS PAYERS ENCOUNTER GUARANTOR PAYER SUBSCRIBER SOURCE 03/15/2018 NIRAJ Martínez Primary [facility]: [facility] Eyelation [facility] [id number] Repository ANGELIC Number: Luis Daniel DANG [id number] [place] [address]Iej: Date:2018-03-15 [phone]: [phone] ()Tel: [phone] Name:BPO BOX (HP) () [id number], [place] [phone] ( [id number]: 03/15/2018 NIRAJ Martínez Primary NIRAJ Martínez [facility]: Insurance:[facility]elation [facility] [id number] Repository ANGELIC Number: Luis Daniel DANG [id number] [place], [place] [address]Ryj: Date:2018-03-15 402[address]Azr: [phone] ()Tel: [phone]) Name:BPO BOX (HP) (wp) 105[address]SIDDHARTH Rocha [phone] () 287[address]II: 03/13/2018 NIRAJ Martínez Primary NIRAJ Cramer [facility] DERFLINGERDOB: Insurance:ANTHEM BLUE DERFLINGERDOB: [facility] S CROSS INSCOPolicy [id number] Repository ANGELIC Number: Luis Daniel DANG [id number] [facility] [place], [place] [address]Hkt: Date:2018-03-13 039[address]Xut: [phone] [id number] [phone] (HP)Tel: ([phone]) Name:BPO BOX (HP) () SIDDHARTH [place] [phone] () [id number]: 03/13/2018 NIRAJ Martínez Primary NIRAJ Cramer [facility] DERFLINGERDOB: Insurance:ANTHEM BLUE DERFLINGERDOB: [facility] [id number] Repository HENDERSON Number: Luis Daniel DANG [id number] [facility] [place] [address]Qbp: Date:2018-03-13 [phone]: [phone] [id number] [phone] (HP)Tel: [phone]) Name:BPO BOX (HP) () SIDDHARTH [place]botham [phone] () [address]SW: 03/06/2018 NIRAJ L Primary NIRAJ Martínez [place] [id number] S Insurance:ANTHEMPolicy DERFLINGERDOB: [facility] Number: [id number] [place], [id number] Repository [place] [address]Myj: Date:[id number]WDRFQWASIDDHARTH ABRAMS () [address]KF: 03/06/2018 Secondary NOT GIVENUNK [place] Insurance:SELF PAY [facility] Number: Effective Repository Date:2018-03-04 03/06/2018 NIRAJ L Primary NIRAJ L [place] [id number] S Insurance:ANTHEMPolicy DERFLINGERDOB: [facility] Number: [id number] County Memorial [id number] Repository [place] [id number]: Date:3890-51-42JQ [address]FDRDMHH, [place] () [address]FF: 03/06/2018 Secondary NOT GIVENUNK [place] Insurance:SELF PAY [facility] Number: Effective Repository Date:2018-02-20 02/26/2018 NIRAJ L Primary NIRAJ L [place] [id number] Insurance:ANTHEMPolicy DERFLINGERDOB: [facility] Number: [id number] County Memorial [id number] Repository [place] [address]Ujt: Date:9844-48-16LD [address]PCZQDSDSIDDHARTH ABRAMS () [address]TT: 02/26/2018 Secondary NOT GIVENUNK [place] Insurance:SELF PAY [facility] Number: Effective Repository Date:2018-02-19 02/01/2018 NIRAJ L Primary NIRAJ L [place] [id number] Insurance:ANTHEMPolicy DERFLINGERDOB: [facility] Number: [id number]'s Summit [id number] Repository [place] [address]Xhg: Date:8547-66-85IW [address]WKRMTZBSIDDHARTH ABRAMS () [address]ID: 02/01/2018 Secondary NOT GIVENUNK [place] Insurance:SELF PAY [facility] Number: Effective Repository Date:2018-02-01 01/29/2018 NIRAJ L Primary NIRAJ L [place] [id number] Insurance:ANTHEMPolicy DERFLINGERDOB: [facility] Number: [id number] County Memorial [id number] Repository [place] [address]Zfy: Date:3404-97-76RH [address]SWJNVZTSIDDHARTH ABRAMS () [address]YP: 01/29/2018 Secondary NOT GIVENUNK [place] Insurance:SELF PAY [facility] Number: Effective Repository Date:2018-01-22 01/25/2018 NIRAJ L Primary NIRAJ L [place] [id number] Insurance:ANTHEMPolicy DERFLINGERDOB: [facility] Number: [id number]'s Summit [id number] Repository [place] [address]Dsf: Date:1809-91-52TS [address]ODOLQNW, [place] () [address]DY: 01/25/2018 Secondary NOT GIVENUNK [place] Insurance:SELF PAY [facility] Number: Effective Repository Date:2018-01-25 01/17/2018 NIRAJ L Primary NIRAJ L [place] [id number] [address] Insurance:ANTHEMPolicy DERFLINGERDOB: [facility] Number: [id number]'s Summit [id number] Repository [place] [address]Trv: Date:1603-95-60VY [address]JTSMXFL, [place] () [address]JU: 01/17/2018 Secondary NOT GIVENUNK [place] Insurance:SELF PAY [facility] Number: Effective Repository Date:2018-01-17 01/09/2018 [facility]AJ L [facility]:ANTHEM BLUE DERFLINGERDOB: [facility] S [facility] [id number] Repository [place] Number[id number] [place], [place] [address]Ugh: Date:2018-01-09 [address]Ykd: [phone] ()Tel: [phone] Name:MARGOTH MAYO () () SIDDHARTH Higginbotham [phone] () [address]WS: 04/04/2017 NIRAJ L Primary NIRAJ L [place] [id number] [address] Insurance:ANTHEMPolichayde JENSENDOB: [facility] Number: [id number] County Memorial Hospital, [id number] [place] [address]Wkj: Date:6073-48-98ON [address]XLALFNC, [place] () [address]FA: 04/04/2017 Secondary NOT GIVENARYAN [place] Insurance:SELF PAY [facility] Number: Effective Repository Date:2016-12-25
--- NOTE | 2018-04-17 14:32 | HP.PT.NRP ---
HP - Discharge Summary (1) - Patient Information NIRAJ JENSEN was seen in my office for initial evaluation on 02/26/18. The following Plan of Care was established for this patient: Initial Frequency: 1x/Week Initial Duration: 2 Weeks - Anticipated Interventions Patient/Client Instruction: Educate patient on: Condition, Plan of Care For the Purpose of:: To improve self management Therapeutic Exercise to Include: Strength training, Endurance training, Balance training, Flexibilty training, Gait and locomotor training, Passive ROM, Active ROM, Dynamic Lumbar Stabilization For the Purpose of:: To decrease pain, To increase ROM, To improve muscle performance and motor function Cryotherapy (ice pack, ice massage): Yes For the Purpose of:: To decrease pain This patient was last seen in our office . Pertinent comments regarding their Physical therapy will appear below: Pt was last treated for his R knee pain on 03/01/18 for his second PT visit. Pt did not return after that date, and has since had another R LE surgery with care transferred to another PT. Pt is discontinued at this time At this point I will be discontinuing this patient from physical therapy. I would be happy to see this patient again in the future if found appropriate by the physician. Thank you! Jarad Obando, PT, ATC
== END 2018-03-01 19:00 | disposition home or self-care (01) ==
LOC: PT 12:30
PROVIDERS: Referring Provider Specialist; Visit Provider Specialist
DX: T84.53XD Infection and inflammatory reaction due to internal right knee prosthesis, subsequent encounter (principal); Z96.651 Presence of right artificial knee joint
CPT/HCPCS: 97110; 97162

== ENCOUNTER 2018-03-06 14:09 | Outpatient (RCR) | payer BC, SELFPAY ==
[2018-03-06 15:22] LABS: Erythrocyte Sedimentation Rate 9 mm/hr (0-20)
[2018-03-06 15:26] LABS: Hematocrit 35.4 % (40-54); Hemoglobin 11.6 g/dl (13.0-16.5); Mean Corp Hgb Conc 32.8 g/gl (32-36); Mean Corpuscular Hgb 27.4 pg (27.0-32.0); Mean Corpuscular Volume 83.5 fL (80-94); Mean Platelet Vol. 9.6 fl (6.2-12.0); Platelet Count 154 K/mm3 (150-450); RBC Distribution Width CV 14.6 % (11.6-14.6); RBC Distribution Width SD 42.7 fl (35.1-43.9); Red Blood Count 4.24 M/mm3 (4.6-6.2); White Blood Count 5.8 K/mm3 (4.4-11.0)
[2018-03-06 15:28] LABS: Scan Indicated on CBC? Y/N NO
[2018-03-06 15:32] LABS: Anion Gap 7 (5-15); BUN 13 mg/dL (7-18); BUN/Creat Ratio 15.5 RATIO (10-20); Calcium,Total 9.2 mg/dL (8.5-10.1); Chloride 104 mmol/L (98-107); Creatinine, Serum 0.84 mg/dL (0.70-1.30); EST Glomerular Filtration Rate 102 mL/min (>60); Est Glom Filt Rate - Afr Amer 123 mL/min (>60); Glucose 88 mg/dL (74-106); Potassium 4.3 mmol/L (3.5-5.1); Sodium Level 140 mmol/L (136-145)
== END 2018-03-06 15:00 | disposition home or self-care (01) ==
LOC: LAB 14:09
PROVIDERS: Referring Provider Internal Medicine Infectious Disease; Visit Provider Internal Medicine Infectious Disease
DX: Z96.651 Presence of right artificial knee joint (principal); B95.8 Unspecified staphylococcus as the cause of diseases classified elsewhere
CPT/HCPCS: 36415; 80048; 85027; 85652

== ENCOUNTER → 2018-03-27 09:59 | Outpatient (CLI) | payer BC, SELFPAY ==
[2018-03-27 11:09] LABS: Erythrocyte Sedimentation Rate 15 mm/hr (0-20)
[2018-03-27 11:12] LABS: Absolute Lymphocyte Count 2.16 X10^3/ul (0.83-4.51); Absolute Neutrophil Count 3.5 X10^3/uL (2.0-7.7); Basophil# 0.01 X10^3/uL; Basophil% 0.2 % (0-1); Eosinophil# 0.29 X10^3/uL; Eosinophils% 4.5 % (0-5); Hematocrit 39.6 % (40-54); Hemoglobin 13.1 g/dl (13.0-16.5); Lymphocyte # 2.16 X10^3/ul (4.0); Lymphocyte % 33.3 % (19-41); Mean Corp Hgb Conc 33.1 g/gl (32-36); Mean Corpuscular Hgb 28.5 pg (27.0-32.0); Mean Corpuscular Volume 86.3 fL (80-94); Mean Platelet Vol. 9.7 fl (6.2-12.0); Monocyte% 7.7 % (0-10); Platelet Count 285 K/mm3 (150-450); RBC Distribution Width CV 17.2 % (11.6-14.6); RBC Distribution Width SD 53.4 fl (35.1-43.9); Red Blood Count 4.59 M/mm3 (4.6-6.2); White Blood Count 6.5 K/mm3 (4.4-11.0)
[2018-03-27 11:13] LABS: POSITIVE COUNT NO; POSITIVE DIFFERENTIAL NO; POSITIVE MORPHOLOGY NO
[2018-03-27 11:26] LABS: CRP 7.79 mg/L (0.0-3.0)
== END ==
PROVIDERS: Referring Provider Specialist; Visit Provider Specialist
DX: T84.53XD Infection and inflammatory reaction due to internal right knee prosthesis, subsequent encounter (principal)
CPT/HCPCS: 36415; 85025; 85652; 86140

== ENCOUNTER 2018-04-03 08:41 | Inpatient (IN) | payer BC, SELFPAY ==
[2018-03-29 09:18] VITALS: BP 139/84; PULSE 60; RESP 16; TEMP 36.5; O2SAT 96; BMI 37.3
--- NOTE | 2018-03-29 16:45 | PCM.HP.BLA ---
History and Physical DATE OF SURGERY: 04/03/2018 SCHEDULED PROCEDURE: Right knee removal antibiotic spacer with placement of right total knee arthroplasty HISTORY OF PRESENT ILLNESS: This is a 52-year-old male who had a previous right total knee arthroplasty by Dr. Tito Callaway on January 09, 2017. Patient postoperatively had continued swelling and tightness in the knee. Patient had a lab workup which did reveal infection for staph strain. Patient underwent a removal right total knee arthroplasty with placement of antibiotic spacer on January 29, 2018. Patient has had lab work postoperatively which does show his ESR continues to be within range. He is ambulating with a walker and has been on oral antibiotics. Patient discontinued antibiotics on March 12, 2018. Patient currently denies any changes in medical history. He denies any chest pain, shortness of breath, fevers chills, or calf pain. After discussion with Dr. Tito Callaway, the patient does wish to proceed with removal antibiotic spacer with placement of right total knee arthroplasty. REVIEW OF SYSTEMS: ROS: Const: Denies anorexia, change in appetite, fever, hard of hearing, vision problems and weight change. CV: Denies chest pain, heart murmur, irregular heartbeat and peripheral vascular disease. Resp: Denies asthma, cough, pneumonia, sleep apnea, SOB, tuberculosis and wheezing. GI: Denies constipation, diarrhea, difficulty swallowing, heartburn, nausea, bloody stools and vomiting. : Urinary: denies incontinence. Musculo: Denies leg swelling, limp, trouble walking and weakness. Skin: Reports tattoo, but denies Raynaud's and history of shingles. Neuro: Denies ambulatory dysfunction, dizziness, numbness/tingling and tremor. Psych: Denies anxiety, depression, insomnia, mental illness and stress. Kal/Lymph: Denies anemia, bleeding/bruising tendency and past transfusion. Reviewed, no changes. PAST MEDICAL HISTORY: Advance Care Plan: No Advance Directives Effective Date: 10/26/2016 PMH: Medical Problems: High Blood Pressure Accidents: None Surgical Hx: Carpal Tunnel Release Rt - (2001) [facility] Vasectomy - (1996) [place], [place] Knee Arthroscopy RT - (06/09/2016) [email or web address] Knee Replacement RT - (01/09/2017) [email or web address] RT Knee Antibiotic Spacer - (01/30/2018) [email or web address] Anesthesia Complications: None Assistive Devices: None Reviewed, no changes. SOCIAL HISTORY: SH: Marital: .Occupation: [employer].Work Status: Currently Working.Hand Dominance: Right-handed. Personal Habits: Cigarette Use: Former - 1 1/2 ON & OFF TRYING TO STOP.Alcohol: Currently consumes alcohol, Occasionally.Drug Use: Denies Use.Enjoy Exercising: Exercises 1-3 x/month. Reviewed, no changes. VITALS: Ht: 66 Wt: 238lb Wt k.957 BMI: 38.4 BP: 118/62 Pulse: 70 Resp: 16 T: 98.1 T: 36.7C ALLERGIES: No Known Drug Allergy MEDICATIONS: Lisinopril 10 mg take 1 tablet by mouth every day, Tylenol Extra Strength 500 mg 2 by mouth every 8 hours, Oxycodone HCL 5 mg 1-2 by mouth every 6 hours PRE-OP EXAM: General appearance:NORMAL Other: Eyes: Conjunctivae and lids: NORMAL Pupils: ERR Ears, Nose, Mouth, and Throat: NORMAL Other: Inspection of lips, teeth and gums: NORMAL Other: Neck: Examination of neck: no masses noted. Respiratory: Assessment of respiratory effort: NORMAL Other: Auscultation of lungs: clear to auscultation no wheezes, rhonchi or rales. Cardiovascular: Auscultation of heart: regular rate and rhythm, no murmurs, gallops or rubs. Exam of carotid arteries: NORMAL Other: Gastrointestinal: Exam of abdomen: soft, nontender, nondistended bowel sounds present. PHYSICAL EXAMINATION: Patient also walk with a limping gait with use of walker. Right knee incision is well-healed with no erythema. Patient's knee is stable to varus and valgus stress test. Range of motion lacks 30 of extension to 95 flexion. Positive effusion. Sensation intact to light touch. IMAGING STUDIES: X-rays of the right knee does reveal a well aligned antibiotic spacer with intramedullary dowels. Implants appear stable. Alignment is stable. IMPRESSION: 1. Right knee antibiotic spacer 2. Hypertension PLAN: Dr. Tito Callaway did discuss and review with the patient all treatment options including surgical versus nonsurgical options. Patient does wish to proceed with the above-stated procedure. Potential risks, benefits, and complications of the procedure were discussed in detail including but not limited to , infection, nerve and blood vessel damage, persistent pain, numbness, tingling, paresthesias, blood clot, pulmonary embolism, and requirement for possible further surgery. The patient expressed full understanding and has no further questions for the doctor. Patient does agree to proceed with the above-stated procedure and has signed the surgery consent form. This dictation was created using voice recognition software. Phonetic and/or grammatical errors may exist.. ___ I have re-examined the patient. There are no clinical changes since date of exam. ___ See progress notes for changes. ___ Dictated on admission Date: Time: Signature:
[2018-04-03] VITALS (10 sets, daily range): BP systolic 92–140; BP diastolic 48–81; PULSE 49–73; RESP 14–18; TEMP 36.2–36.8; O2SAT 96–100; BMI 37.3
--- NOTE | 2018-04-03 07:01 | RAD_ITS ---
STUDY: X-RAY - RIGHT KNEE REASON FOR EXAM: Male, 52 years old. Revision right total knee arthroplasty TECHNIQUE: 2 view(s) of the knee on 3 films. COMPARISON: 2 portable postop views of the right knee January 29, 2018. FINDINGS: A metal prosthesis is again seen over the femoral condyles. The cement noted previously extending along the medullary channel of the distal right femur has been replaced by a metal intramedullary fredrick that may attach to the condylar prosthesis. The radiolucent tibial prosthesis has been replaced with a new metal prosthesis, its articulating plate at the tibial plateau, and cement surrounding the stem that extends into the proximal tibial metadiaphysis. A metal fredrick spans the joint space between the femoral and tibial prostheses. Radiolucent prosthesis at the posterior margin of the patella is unchanged. Normal visualized proximal fibula. There is no demonstrated acute fracture. Normal medial femorotibial compartment. Normal lateral femorotibial compartment. Normal patellofemoral articulation. There are gas lucencies in the peripatellar soft tissues, consistent with recent surgery. Mild soft tissue swelling. Number of metal skin cheryl are noted along the anterior midline. RAD/Knee 1 or 2 Views IMPRESSION: Status post revision of right total knee arthroplasty, as described. Electronically Signed: Dominguez Potts MD at 18:45 EST , Service support ,
[2018-04-03] MEDS: Acetaminophen 500 MG Tablet 1000 MG PO ×2 (09:21→21:30)
[2018-04-03] MEDS: Celecoxib 200 MG Capsule 400 MG PO (09:22)
[2018-04-03] MEDS: oxyCODONE HCl Cr 10 MG Tablet PO (09:22)
[2018-04-03] MEDS: Lactated Ringers 1,000 ML 999 ML IV (09:45)
[2018-04-03] MEDS: Scopolamine 1mg/72hr Patch 1 PATCH TD (10:07)
[2018-04-03] MEDS: Cefazolin 2 GM in 0.9% Normal Saline 100 ML IV (11:25)
--- NOTE | 2018-04-03 13:54 | OP.PCM_ITS ---
Report of Operation Date of Procedure: 04/03/18 Pre-Operative Diagnosis: Right failed total knee arthroplasty, infection. Previous nonbiodegradable antibiotic delivery system Post-Operative Diagnosis: Right failed total knee arthroplasty, infection. Previous nonbiodegradable antibiotic delivery system Surgery/Procedure Performed:: Revision right total knee replacement femoral and tibial components. Removal of nonbiodegradable antibiotic delivery system right knee Description of Surgical Findings:: Stable knee bank accountant: Palu Harris Type of Anesthesia:: Spinal Anesthesiologist: Idris Boudreaux Special Medications: 2 g Ancef, 1 g TXA at incision, 1 g TXA closure, 10 mg Decadron, joint cocktail (5 mg Duramorph, 30 mL of 0.5% Ropivicaine, 1000 units of epinephrine, 30 mg of Toradol) Specimen's removed: 3 separate specimens were sent to microbiology Estimated Blood Loss (mL): 100 ML Fluids Replaced: 1800 mL crystalloid Description of Procedure: Implants used: Femur: Right TS size 6 distal femoral component with 17 x 150 mm stem, a 5 mm distal augment medially, 10 mm distal augment laterally Tibia: Right size 6 universal tibial baseplate, 15 x 50 mm cemented stem, 5 mm augments medially and laterally, size E asymmetric cone Poly: Size 16 TS X3 polyethylene Patella: 35 mm asymmetric patella Brief history operative indications: 52-year-old male who had total knee replacement subsequently had an infection. Implants were removed and none about irritable antibiotic spacer was placed in the canals and a articulating total knee replacement was placed temporarily. After 6 weeks of IV antibiotics and appropriate lab work with antibiotic holiday patient was determined to be appropriate for revision of the temporary knee replacement to a total knee replacement. Risks and benefits of the procedure were discussed the patient including but not limited to blood loss, DVTs, PEs, neurovascular damage, infection, the risk of anesthesia including loss of life. Patient initiated understanding also understands continued infection is possible. Procedure: On the date of procedure patient's right lower extremity was marked in the preoperative area. The patient was then taken back to the operating room where the patient was placed on the table in the supine position. All bony prominences were identified a well-padded. Anesthesia assumed control of the C-spine and airway and remained controlled throughout the remainder of the procedure. A tourniquet was placed on the right upper thigh and the leg was prepped in a sterile fashion. The surgeon then scrubbed at this time. Upon reentering the room right lower extremity was draped in a standard orthopedic fashion. A timeout was then called and everyone agreed upon the side, the site, the procedure to be performed, patient's identity and antibiotics given. An Esmarch bandage was used to exsanguinate the extremity and the tourniquet was placed up to 250 mmHg with the knee in flexion. A midline skin incision was made using the previous incision and extending it proximally and distally to identify normal tissue planes. Medial and lateral flaps were developed appropriate releases. The standard medial parapatellar arthrotomy was made and the patella was subluxed laterally. At this time an aggressive synovectomy was performed re-creating the medial gutter first, then the suprapatellar pouch than the lateral gutter. Once this was completed the knee was flexed up an osteotome was used to remove the tibial polyethylene. The remainder of the synovium was debrided. The standard deep MCL release was done and the patella scar pad was resected and lateral releases were performed. Next our attention was directed to the femur. Where osteotomes break up the implant cement interface. This was done both medially and laterally. After this is adequately done bone tamp was used to remove the femur component from the end of the bone. This was done with minimal bone loss. At this time attention was now directed towards the proximal tibia. Possible osteotome and TPS saw were then used to break up the proximal tibia implant interface and stacked osteotomes were used to remove the tibial implant. This was done with minimal bone loss. Our attention was then turned to the tibia where the intramedullary canal was reamed to 16 and intramedullary tibial cutting guide was used to make the appropriate tibial cut 90 degrees from the mechanical axis. A drop fredrick was then used to verify the cut. A size E tibial cone with a medial asymmetric bubble was then reamed and a trial was placed. A size 6 tibial base plate was selected and 5 mm augments were placed medially and laterally. the knee was flexed and the tibial component was pinned into place. The trial implant was impacted in its prepared position. Our attention was then turned back to the femur or the femur intramedullary canal was reamed to 17 mm the 6 TC G cutting guide was put into place and pinned using the medial epicondyle as a reference for the joint line. We then trialed setting the rotation of the femur and pinning the femur into place. Distal femoral was made using the standard Mary medial epicondyle guiode to set the joint line. Cleanup cut was made we knew we would need a 5 augment medially, and 10 augment laterally. Once this was done the posterior cuts were made neutrally medially and lateralThe box cutting guide was then pinned into place and the box cut was made using a reciprocating saw. The appropriate trials were then placed on the femur and tibia. A trial polyethylene was trialed to ensure proper balancing and stability of the knee. Patella tracking, was then verified and corrected appropriately as needed. Our attention was then directed to the patella. Assymmetric 35 mm patella was selected. Patellar tracking was again checked and deemed appropriate. Final components were verified and opened, 6 liters of normal saline were irrigated throughout the joint under low-pressure lavage. Then the cement was mixed in a vacuum. Mary Simplex cement with tobramycin was used. The wound was copiously irrigated with normal saline. When the cement was ready the components were cemented into place starting with the tibia, femur the poly-was then cemented into place. The trial poly component was placed and the knee was placed in full extension. All excess cement was removed in the process. Once the cement had cured the tracking, alignment and balance were verified and a size 16 mm TS polyethylene component was placed. Until pin was impacted into place. Once the final components were placed the wound was copiously irrigated with normal saline solution and the remainder of the periarticular injection was given. The wound was closed in a layer medeiros fashion using #1 vicryl interrupted sutures for the arthrotomy, 2-0 interrupted Vicryl for the subcuticular layer and cheryl for final skin closure. A sterile compressive dressing was then placed. The patient was then awakened from anesthesia, transferred to the [place] and transferred to the PACU for recovery. Post op plan DVT ppx: ASA 81mg BID, thigh high compression stockings Follow up: in office in 2 weeks for wound check PT: to start POD #0 at hospital, outpatient PT should be arranged. My physician assistant professor of biochemistry was a vital part of this case. He was important in appropriate retraction during the case, and protection of soft tissues during bony cuts. His intimate knowledge of the case and my steps aided in safe and expedient completion of the procedure as well as appropriate position of the leg during the case. He was also vital in assisting with closure under my direct supervision. Grafts/Implants Used: Mary triathlon TS total knee - Complications None - Admit VTE Documentation VTE Present on Admission: No VTE Mechan Device Prophylaxis: SCD's, Thigh High JUAN Hose VTE Pharm Prophylaxis ordered?: Yes
[2018-04-03] MEDS: Ferrous Sulfate 325 MG Tablet PO (17:18)
[2018-04-03] MEDS: Folic Acid 1 MG Tablet PO (17:18)
[2018-04-03] MEDS: Lactated Ringers 1,000 ML 125 ML IV (17:18)
[2018-04-03] MEDS: oxyCODONE 5 MG Tablet PO (19:14)
[2018-04-03] MEDS: Cefazolin 1 GM/50 ML BAG IV (19:14)
[2018-04-03] MEDS: Doxycycline 100 MG CAPSULE PO (21:30)
[2018-04-03] MEDS: Meloxicam 7.5 MG Tablet PO (21:30)
[2018-04-04] MEDS: oxyCODONE 5 MG Tablet PO ×3 (03:10→13:01)
[2018-04-04] MEDS: Cefazolin 1 GM/50 ML BAG IV (03:10)
[2018-04-04 03:13] VITALS: BP 116/67; PULSE 66; RESP 18; TEMP 36.6; O2SAT 100
[2018-04-04] MEDS: Acetaminophen 500 MG Tablet 1000 MG PO ×2 (05:51→13:02)
[2018-04-04] MEDS: Ketorolac 15 MG/ML Vial IV ×2 (05:52→11:58)
[2018-04-04] MEDS: 0.9% NaCl Peripheral Flush Adult/Peds IV ×2 (05:52→11:58)
[2018-04-04] MEDS: Rivaroxaban 10 MG Tablet PO (05:53)
[2018-04-04 06:18] LABS: Hematocrit 32.6 % (40-54); Hemoglobin 10.6 g/dl (13.0-16.5); Mean Corp Hgb Conc 32.5 g/gl (32-36); Mean Corpuscular Hgb 28.6 pg (27.0-32.0); Mean Corpuscular Volume 88.1 fL (80-94); Mean Platelet Vol. 9.4 fl (6.2-12.0); Platelet Count 170 K/mm3 (150-450); RBC Distribution Width CV 16.3 % (11.6-14.6); RBC Distribution Width SD 51.5 fl (35.1-43.9)
[2018-04-04 06:21] LABS: Scan Indicated on CBC? Y/N NO
[2018-04-04 06:32] LABS: Anion Gap 8 (5-15); BUN 14 mg/dL (7-18); BUN/Creat Ratio 16.2 RATIO (10-20); Calcium,Total 8.2 mg/dL (8.5-10.1); Chloride 105 mmol/L (98-107); Creatinine, Serum 0.86 mg/dL (0.70-1.30); EST Glomerular Filtration Rate 98 mL/min (>60); Est Glom Filt Rate - Afr Amer 119 mL/min (>60); Estimated Creatinine Clearance 92.87 ml/min; Glucose 109 mg/dL (74-106); Potassium 4.4 mmol/L (3.5-5.1); Sodium Level 140 mmol/L (136-145)
[2018-04-04] MEDS: Folic Acid 1 MG Tablet PO (08:20)
[2018-04-04] MEDS: Famotidine 20 MG Tablet PO (08:21)
[2018-04-04] MEDS: Doxycycline 100 MG CAPSULE PO (08:21)
[2018-04-04] MEDS: Meloxicam 7.5 MG Tablet PO (08:21)
[2018-04-04 09:15] VITALS: BP 121/61; PULSE 66; RESP 18; TEMP 36.8; O2SAT 96
--- NOTE | 2018-04-04 09:22 | PCM.PN.ORT ---
Subjective: The patient was sitting in bedside chair upon examination. Patient denies any chest pain, shortness of breath, dizziness, lightheadedness, nausea or vomiting, or calf pain. Pain is controlled on medications. No adverse overnight events. Overall patient is doing well. Patient does wish to try to go home today. Pain is been controlled. Objective: Vital signs stable and afebrile. Patient is able to plantarflex and dorsiflex actively. Sensation is intact to light touch to saphenous, sural, superficial and deep peroneal, and tibial distribution. Dressing is clean dry and intact. Positive postoperative swelling to the right knee Negative Homans bilaterally, negative signs and symptoms of DVT. - Physical Exam General: Alert, Oriented x3, Cooperative, No apparent distress Vital Signs Temp Pulse Resp BP Pulse Ox 97.8 F 66 18 116/67 100 04/04/18 03:13 04/04/18 03:13 04/04/18 03:13 04/04/18 03:13 04/04/18 03:13 Oxygen Delivery Method Room Air Weight: 108 kg Body Mass Index (BMI) 37.3 Intake and Output for Last 24 Hours 04/02/18 04/03/18 04/04/18 23:59 23:59 23:59 Intake Total 2077 1866 / 1866 Output Total 2275 / 2275 Balance 2077 -409 / -409 Laboratory Tests Past 24 Hrs 04/04/18 04/04/18 05:44 05:44 WBC 9.0 RBC 3.70 L Hgb 10.6 L Hct 32.6 L MCV 88.1 MCH 28.6 MCHC 32.5 RDW 16.3 H RDW Differential 51.5 H Plt Count 170 MPV 9.4 Sodium 140 Potassium 4.4 Chloride 105 Carbon Dioxide 27.0 Anion Gap 8 BUN 14 Creatinine 0.86 Estim Creat Clear Calc 92.87 Est GFR (MDRD) Af Amer 119 Est GFR (MDRD) Non-Af 98 BUN/Creatinine Ratio 16.2 Glucose 109 H Calcium 8.2 L Medical Necessity - Tobacco Use Smoking Status: Former smoker Assessment/Plan All Active Problems Infected prosthetic knee joint (Acute) Osteoarthritis of knees, bilateral (Acute) 1. S/P revision right total knee replacement femoral and tibial components with removal of antibiotic spacer POD #1 2. Continue Pain Medications: Tylenol and OxyIR 3. DVT Prophylaxis: Xarelto daily for 2 weeks postoperatively, will then switch over to 81 mg aspirin twice daily for an additional 2 weeks 4. PT/OT: Weightbearing as tolerated 5. H & H: 10.6/32.6, asymptomatic 6. Encouraged Incentive Spirometry 7. Continue antibiotics while following cultures: Currently pending. Patient will be on doxycycline for 1 month postoperatively 8. Disposition: Plan will be for possible discharge home today if patient tolerates physical therapy and pain is controlled on medications. Prescriptions will be E scribed to [facility] and [facility]. Patient will follow-up per postop instructions.
--- NOTE | 2018-04-04 09:38 | PCM.DC.TKR ---
Discharge Diet: No Restrictions Discharge Activity: May Not Drive May shower in (days): 1 - Turned dressing away from water Ice area for (Minutes): 20 - every 1-2 hour while awake. Weight Bearing Status: Weight bearing as tolerated Elevate: Operative Extremity Additional Activity Instructions:: Wear elastic stockings for 2 weeks after your surgery. Call your doctor if your incision/area has: Continuous Slow Oozing, Sudden Increased Bleeding, Increased Pain/ Swelling, Increased Redness, Foul Smelling Discharge Call your doctor if you observe: Fever of 101 or Higher, Coldness, Increased Pain, Numbness or Tingling, Change in Color, Calf discomfort, Uncontrolled pain Remove Dressing in (days):: 4 - Okay to remove on April 08, 2018 Additional Instructions: Follow [facility] postop instructions Continue with ice and elevation right lower extremity. Allergies/Adverse Reactions: Allergies No Known Allergies Allergy (Verified 01/25/18 13:13) Medications to take at Discharge Lisinopril [Prinivil] 10 mg PO DAILY 12/25/16 Acetaminophen [Tylenol] 1,000 mg PO Q8 #90 tablet 04/04/18 Doxycycline 100 mg PO BID #60 capsule 04/04/18 Oxycodone [Oxyir] 5 - 10 mg PO Q4H PRN PRN 5 Days #60 tablet 04/04/18 Rivaroxaban [Xarelto] 10 mg PO DAILY@0600 #13 tablet 04/04/18 Senna/Docusate Sodium [Senokot-S] 2 tablet PO BID tablet 04/04/18 The following prescriptions were given: Oxycodone [Oxyir] 5 - 10 mg PO Q4H PRN PRN 5 Days #60 tablet PRN Reason: Mod-Severe Pain (-01/09) Acetaminophen [Tylenol] 1,000 mg PO Q8 #90 tablet Rivaroxaban [Xarelto] 10 mg PO DAILY@0600 #13 tablet Doxycycline 100 mg PO BID #60 capsule Primary Care Physician: Eladia Davies DO [Primary Care Provider] - Test Results: Test results from this visit will be discussed in further detail at your follow-up appointment, if applicable. Please Follow Up With: Physical therapy When: 04/08/18 Please Follow Up With: Paul Harris PA-C When: 04/17/18 @ 9:30 am
--- NOTE | 2018-04-04 10:10 | CASEMGMT ---
TG CAMPOS Face to Face with patient for initial transition planning/care coordination assessment. RN BETH introduced self and role at [facility]. Patient lying in bed, alert and oriented. Patient willing to participate in assessment and is able to answer all questions appropriately. Care providers, pharmacy, and demographics verified. Patient wishes to discharge home and is setup with [facility] for outpatient therapy with brother providing transportation. Patient has walker, cane, grab bars. Patient states he has no further needs or concerns at this time. CM to follow for discharge planning needs that may arise. Disposition Plan: Patient to discharge home with outpatient therapy, family support, and follow-up plans in place. Viky CLAY, RN, CM
[2018-04-04] MEDS: Ferrous Sulfate 325 MG Tablet PO (11:19)
== END 2018-04-04 14:00 | disposition home or self-care (01) | DRG 468 ==
LOC: ACINP 09:14 → MS3 10:05
PROVIDERS: Admitting Provider Specialist; Referring Provider Specialist; Visit Provider Specialist
PROC: 0SRC0J9 Replacement of Right Knee Joint with Synthetic Substitute, Cemented, Open Approach (ICD-10-PCS; principal; 2018-04-03 10:35)
DX: Z47.33 Aftercare following explantation of knee joint prosthesis (principal); I10 Essential (primary) hypertension; Z87.891 Personal history of nicotine dependence
CPT/HCPCS: 36415; 73560; 80048; 85027; 87015; 87070; 87075; 87081; 87102; 87116; 87205; 87206; 97110; 97127; 97161; 97165; 97530; 99251; C1776; J7120; A4216; G0463; G0515

== ENCOUNTER → 2018-05-31 10:40 | Outpatient (CLI) | payer BC, SELFPAY ==
[2018-04-03 16:13] VITALS: BMI 37.3
[2018-05-31 11:01] LABS: Absolute Lymphocyte Count 2.65 X10^3/ul (0.83-4.51); Absolute Neutrophil Count 3.3 X10^3/uL (2.0-7.7); Basophil# 0.01 X10^3/uL; Basophil% 0.2 % (0-1); Eosinophil# 0.24 X10^3/uL; Eosinophils% 3.6 % (0-5); Hematocrit 42.3 % (40-54); Hemoglobin 13.9 g/dl (13.0-16.5); Lymphocyte # 2.65 X10^3/ul (4.0); Lymphocyte % 40.1 % (19-41); Mean Corp Hgb Conc 32.9 g/gl (32-36); Mean Corpuscular Hgb 28.9 pg (27.0-32.0); Mean Corpuscular Volume 87.9 fL (80-94); Mean Platelet Vol. 9.4 fl (6.2-12.0); Monocyte# 0.44 X10^3/uL; Monocyte% 6.7 % (0-10); Neutrophil # 3.25 X10^3/uL (2.7-7.7); Neutrophil % 49.1 % (47-70); Platelet Count 199 K/mm3 (150-450); RBC Distribution Width CV 14.8 % (11.6-14.6); RBC Distribution Width SD 47.3 fl (35.1-43.9); Red Blood Count 4.81 M/mm3 (4.6-6.2); White Blood Count 6.6 K/mm3 (4.4-11.0)
[2018-05-31 11:04] LABS: POSITIVE COUNT NO; POSITIVE DIFFERENTIAL NO; POSITIVE MORPHOLOGY NO
[2018-05-31 11:07] LABS: Erythrocyte Sedimentation Rate 3 mm/hr (0-20)
[2018-05-31 11:35] LABS: CRP 5.62 mg/L (0.0-3.0)
== END ==
PROVIDERS: Referring Provider Specialist; Visit Provider Specialist
DX: Z96.651 Presence of right artificial knee joint (principal)
CPT/HCPCS: 36415; 85025; 85652; 86140

== ENCOUNTER 2018-09-30 17:00 | Outpatient (RCR) | payer BC, SELFPAY ==
[2018-03-29 09:18] VITALS: BMI 37.3
[2018-04-03 16:13] VITALS: BMI 37.3
--- NOTE | 2018-04-08 17:08 | HP.PTEVAL_ITS ---
Patient's Visit Information NIRAJ JENSEN is a 52 year old M referred to Physical Therapy by Tito Callaway MD with a diagnosis of R TKA. Date of Evaluation: 04/08/18 Physical Therapist: Jarad Obando PT, ATC - Visit Plan Frequency: 2-3x /Week Duration: 4-6 Weeks Plan: L knee PROM and mobilizations, stretching and strengthening, blance and proprio, core strengthening, nustep, and HEP - Subjective Findings: DOS: 04/03/17. Pt reports he had a R knee revisional replacement. Pt reports he had a R TKA 01/09/2017. Pt reports he continued to be in pain for that entire year. Pt notes one year after surgery, he went back in and had a blood draw. This showed he had a staph infection, of the prothetics had to be removed and an antibacterial spacer was placed in his R knee. Pt reports he remained that way until having this surgery. Pt reports he is very sore and feels very tight at this time. Pt reports he has difficulty with stair negotiation at this time. Pt reports he works in [employer] in [place]. Pt reports no tingling or numbness in his R LE. Sig sleep difficulty at this time secondary to pain. 4/10 pain at rest, 8/10 at worst - Pain R knee pain Pain Intensity (Out of 10): 5 Pain Intensity Range: 8 - Objective Neuro: B LE sensation is WNL to light touch. ROM: L knee 0-120, R knee 0-30-60. MMT: L knee 5/5 throughout, R knee 2/5 and painful. Gait: Pt ambulates with WW and a very slow cadance. Girth at joint line: L knee 40 cm, knee 50.5 cm - Goals Goal 1:: Decrease L knee pain x 50% to aid with sleep Goal Time Frame: 4-6 Weeks Goal 2:: Increase L knee strength x 1 grade to aid with stair negotiation Goal Time Frame: 4-6 Weeks Goal 3:: Increase L knee ROM x 60 degrees to aid with RTW Goal Time Frame: 4-6 Weeks Goal 4:: I with HEP Goal Time Frame: 4-6 Weeks - Rehabilitation Potential Physical Therapy Diagnosis: Pt has R knee pain, weakness, and limited mobility secondary to R TKA Rehabilitation Potential: Good - Anticipated Interventions Patient/Client Instruction: Educate patient on: Condition, Plan of Care For the Purpose of:: To improve self management Therapeutic Exercise to Include: Strength training, Endurance training, Balance training, Flexibilty training, Gait and locomotor training, Passive ROM, Active ROM, Dynamic Lumbar Stabilization For the Purpose of:: To decrease pain, To increase ROM, To improve muscle performance and motor function Cryotherapy (ice pack, ice massage): Yes For the Purpose of:: To decrease pain Thank you for the opportunity to evaluate your patient. For Medicare and Medicare HMO plans, please review the plan of care and approve it. It will need to be FAXED BACK to us at [phone] for Medicare purposes. For Medicare only, by signing this I certify the plan of care. Please let me know if there are questions or concerns regarding this plan of care. Physician Signature: Date:
--- NOTE | 2018-09-30 17:39 | HP.PTDCSUM ---
HP - PT D/C Summary It has been my pleasure to treat NIRAJ JENSEN under orders from Tito Callaway MD, for the diagnosis of R TKA for a total of 47 visit(s). Discharge Date: Please see the following information for a summary of their discharge status. - Subjective Subjective: No pain today, just stiffness - Pain R knee pain Pain Intensity (Out of 10): 0 - Overall Improvement % Improvement: 60 - Objective Objective/Function: R knee girth: 47.5 cm. R knee MMT: 5/5 throughout. R knee ROM: 0-5-88. Pt is I with HEP - Goals Goal 1:: Decrease L knee pain x 50% to aid with sleep Goal Progress: Goal Met Goal 2:: Increase L knee strength x 1 grade to aid with stair negotiation Goal Progress: Goal Met Goal 3:: Increase L knee ROM x 60 degrees to aid with RTW Goal Progress: Progressing Goal 4:: I with HEP Goal Progress: Goal Met - Plan Plan: Discontinue at this time - D/C Information If there are questions or concerns regarding this patient's physical therapy, please feel free to call me at [phone]. Thank you for the referral of this patient. Sincerely, Jarad Obando, PT, ATC
== END 2018-09-30 19:00 | disposition home or self-care (01) ==
LOC: PT 17:00
PROVIDERS: Referring Provider Specialist; Visit Provider Specialist
DX: T84.53XD Infection and inflammatory reaction due to internal right knee prosthesis, subsequent encounter (principal)
CPT/HCPCS: 97016; 97110; 97113; 97116; 97162; 97530

== ENCOUNTER → 2019-08-07 | Outpatient (CLI) | payer BC, SELFPAY ==
[2018-04-03 16:13] VITALS: BMI 37.3
[2019-08-07 12:47] LABS: Erythrocyte Sedimentation Rate 3 mm/hr (0-20)
[2019-08-07 12:49] LABS: Absolute Lymphocyte Count 2.22 X10^3/uL (0.83-4.51); Absolute Neutrophil Count 3.8 X10^3/uL (2.0-7.7); Basophil# 0.03 X10^3/uL; Basophil% 0.4 % (0-1); Eosinophil# 0.31 X10^3/uL; Eosinophils% 4.4 % (0-5); Hematocrit 41.4 % (40-54); Lymphocyte # 2.22 X10^3/ul (4.0); Lymphocyte % 31.5 % (19-41); Mean Corp Hgb Conc 33.8 g/dL (32-36); Mean Corpuscular Hgb 30.2 pg (27.0-32.0); Mean Corpuscular Volume 89.4 fL (80-94); Mean Platelet Vol. 10.2 fl (6.2-12.0); Monocyte# 0.65 X10^3/uL; Monocyte% 9.2 % (0-10); NRBC Flagged by Analyzer 0 % (0-5); Neutrophil # 3.81 X10^3/uL (2.7-7.7); Neutrophil % 54.1 % (47-70); Platelet Count 196 K/mm3 (150-450); RBC Distribution Width CV 12.3 % (11.6-14.6); RBC Distribution Width SD 40.1 fl (35.1-43.9); Red Blood Count 4.63 M/mm3 (4.6-6.2); White Blood Count 7.1 K/mm3 (4.4-11.0)
== END | disposition home or self-care (01) ==
LOC: LAB 11:37
PROVIDERS: Referring Provider Specialist; Visit Provider Specialist
DX: Z96.651 Presence of right artificial knee joint (principal)
CPT/HCPCS: 36415; 85025; 85652; 86140

== ENCOUNTER → 2020-02-27 15:18 | Outpatient (CLI) | payer OTHER, BC, SELFPAY ==
[2018-04-03 16:13] VITALS: BMI 37.3
--- NOTE | 2020-02-27 15:40 | MRI_ITS ---
STUDY: MRI LEFT KNEE REASON FOR EXAM: Male, 54 years old. L knee sprain c/o pain medially but swelling is lateral TECHNIQUE: Standardized fat and water weighted pulse sequences were obtained in all 3 orthogonal planes. COMPARISON: None. FINDINGS: A small cluster ganglion cyst are present at the periphery and posterior aspect of the medial femoral condyle. This is likely herniated fluid around an underlying Vallecillo''s cyst. A small oblique undersurface tear is present at the periphery of the posterior horn of medial meniscus. Normal anterior horn and body. There is diffuse, less than 50% thickness articular cartilage loss of the medial femorotibial compartment. Normal medial femoral condyle and tibial plateau. Normal medial collateral ligamentous complex (MCL). Normal distal semimembranosus, gracilis and semitendinosus tendons. Normal lateral meniscus. Normal hyaline cartilage of the lateral femorotibial compartment. Normal lateral femoral condyle and tibial plateau. Normal proximal tibiofibular articulation. Normal lateral collateral (fibular) ligament. Normal popliteus tendon. Normal biceps femoris tendon. Normal anterior cruciate ligament (ACL). Normal posterior cruciate ligament (PCL). Normal congruent patellofemoral articulation. Normal hyaline cartilage of the patellofemoral compartment. Normal medial and lateral patellar retinaculum. Normal quadriceps tendon. Normal patellar tendon. Normal Hoffa''s fat pad. A small joint effusion is present. Mild subcutaneous edema is present in the anterior aspect of the knee joint. MRI/Lower Ext Joint Only (Routine) IMPRESSION: 1. Small tear of the posterior horn of medial meniscus 2. Small joint effusion 3. Small cluster of ganglion cysts adjacent to the posterior aspect of the medial femoral condyle Electronically Signed: Jb Francis MD at 19:38 EST , Service support ,
== END ==
PROVIDERS: Referring Provider Family Medicine; Visit Provider Family Medicine
DX: S83.92XA Sprain of unspecified site of left knee, initial encounter (principal)
CPT/HCPCS: 73721